=== PATIENT | male | born 1955 | race Caucasian/White ===

== ENCOUNTER 2016-08-13 05:48 | Outpatient (CLI) | payer OTHER ==
[~2016-08-13] VITALS: Ht 185.4 cm; Wt 99.8 kg
== END 2016-08-13 15:09 ==
LOC: PREOP 05:48
PROVIDERS: ATTEND Surgery
DX: Z01.818 Encounter for other preprocedural examination (principal); Z11.2 Encounter for screening for other bacterial diseases

== ENCOUNTER 2016-08-14 11:07 | Day surgery (SDC) | payer OTHER ==
[~2016-08-14] VITALS: Ht 185.4 cm; Wt 99.8 kg
[2016-08-14] MEDS ORDERED: NS IV 1000 ML 1,000 ML IV STA (11:34)
[2016-08-14] MEDS ORDERED: NS IV 1000 ML 1,000 ML ONE (11:41)
[2016-08-14 11:58] VITALS: BP 136/69
--- NOTE | 2016-08-14 12:29 | Progress Note-Pre Operative ---
Pre-Operative Progress Note H&P Reviewed The H&P was reviewed, patient examined and no changes noted. Date H&P Reviewed: August 14, 2016 Time H&P Reviewed: 12:28 Pre-Operative Diagnosis: occult positive stool, history of ileus ANGELICA BRITTON DO August 14, 2016 12:29 pm
[2016-08-14] MEDS ORDERED: PROPOFOL INJECTION 50 ML IV ONE (13:08)
[2016-08-14] MEDS ORDERED: MIDAZOLAM 2 MG/2 ML (VERSED) VIAL ONE (13:15)
[2016-08-14 14:00] VITALS: BP 111/76
[2016-08-14 14:45] VITALS: BP 114/78
--- NOTE | 2016-08-14 15:20 | Discharge Inst-Simple/Standard ---
Discharge Inst-Standard Patient Instructions/Follow Up Plan of Care/Instructions/FU: Follow up Wednesday in the afternoon. Expect some bleeding. Stay on clear liquid diet. Activity as Tolerated: Yes Discharge Diet: Liquid Diet (clear) ANGELICA BRITTON DO August 14, 2016 3:20 pm
--- NOTE | 2016-08-14 15:26 | Progress Note-Post Operative ---
Post-Operative Progess Note Surgeon (s)/Game Attendant (s) Surgeon ANGELICA BRITTON DO Game Attendant: na Pre-Operative Diagnosis occult positive stool, history of ileus Post-Operative Diagnosis rectal mass Procedure & Operative Findings Date of Procedure 08/14/16 Procedure Performed/Findings attempted colonoscopy, proctoscopy with biopsies of rectal mass Anesthesia Type per [facility] Estimated Blood Loss Estimated blood loss (mL): scant Specimens/Packing Specimens Removed rectal mass ANGELICA BRITTON DO August 14, 2016 3:26 pm
[2016-08-14 15:45] VITALS: BP 142/80
[2016-08-14 16:09] VITALS: BP 111/76
--- NOTE | 2016-08-15 16:28 | OPERATIVE REPORT ---
DATE OF SERVICE: 08/14/2016 PREOPERATIVE DIAGNOSES: Hemoccult positive stool and history of ileus. POSTOPERATIVE DIAGNOSIS: Rectal mass. PROCEDURES: Attempted colonoscopy, proctoscopy with multiple biopsies of rectal mass. SURGEON: Angelica Sheikh DO ANESTHESIA: Per [facility]. ESTIMATED BLOOD LOSS: Scant. INDICATIONS: The patient is a 60-year-old male who has never had a colonoscopy. He was recently in the hospital in [place] for ileus. During that visit, he had Hemoccult positive stools. He was referred to [place] for colonoscopy. He understands risks and benefits of procedure and wished to proceed with procedure. Consent was signed in the chart. PROCEDURE: The patient was taken to the endoscopy suite, placed in left lateral recumbent position. Timeout was performed. Digital rectal exam was performed. The anus had no palpable polyps, mass or ulcerations. In the rectum, there is a palpable mass just barely able to be palpated. The scope was then inserted into the rectum. A circumferential mass was visualized with almost 95% occlusion of the lumen. The scope was unable to be passed through the mass. The mass was approximately 7 or 8 cm from the anal verge. The scope was then retracted back. A gastroscope was obtained to see if this would be able to be passed. The scope was inserted in the rectum, but this was unable to be passed as well. The mass appeared to be extending proximally, but difficult to assess due to the overall visibility since the scope could not be passed. The scope was then slowly retracted back, but multiple biopsies were obtained of the mass. The scope was then slowly retracted back, noting no other pathology. RECOMMENDATIONS: The patient will follow up in the office on Wednesday. He is going to continue on clear liquids. We will discuss surgical options and then proceed. Job ID: [id number] DocumentID: [id number] Dictated Date: 08/15/2016 14:18:51 Information Services Consultant Date: 08/15/2016 16:27:42 Dictated By: ANGELICA SHEIKH DO [facility] NETWORKMaricel
== END 2016-08-14 15:30 | disposition home or self-care (01) ==
LOC: ENDO 11:07
PROVIDERS: ATTEND Surgery
DX: K62.9 Disease of anus and rectum, unspecified (principal); E07.9 Disorder of thyroid, unspecified; Z79.899 Other long term (current) drug therapy

== ENCOUNTER → 2016-08-18 | Outpatient (CLI) | payer OTHER ==
[2016-08-18 11:06] LABS: BASOPHILS % (AUTO) 0 % (0-10); EOSINOPHILS # (AUTO) 0.3 10^3/uL (0.0-0.3); EOSINOPHILS % (AUTO) 4 % (0-10); LYMPHOCYTES # (AUTO) 1.8 X 10^3 (1.0-4.0); LYMPHOCYTES % (AUTO) 26 % (12-44); MEAN CORPUSCULAR HEMOGLOBIN 26 PG (25-34); MEAN CORPUSCULAR HGB CONC 32 G/DL (32-36); MEAN CORPUSCULAR VOLUME 82 FL (80-99); MEAN PLATELET VOLUME 11.7 FL (7.4-10.4); MONOCYTES # (AUTO) 0.6 X 10^3 (0.0-1.0); MONOCYTES % (AUTO) 9 % (0-12); NEUTROPHILS # (AUTO) 4.1 X 10^3 (1.8-7.8); NEUTROPHILS % (AUTO) 60 % (42-75); PLATELET COUNT 275 10^3/uL (130-400); RED BLOOD COUNT 4.74 10^6/uL (4.35-5.85); RED CELL DISTRIBUTION WIDTH 14.4 % (10.0-14.5); WHITE BLOOD COUNT 6.8 10^3/uL (4.3-11.0)
[2016-08-18 11:28] LABS: ALANINE AMINOTRANSFERASE 19 U/L (0-55); ALBUMIN 3.8 G/DL (3.2-4.5); ANION GAP 11 MMOL/L (5-14); ASPARTATE AMINO TRANSFERASE 20 U/L (5-34); BILIRUBIN,TOTAL 0.3 MG/DL (0.1-1.0); BLOOD UREA NITROGEN 9 MG/DL (7-18); BUN/CREATININE RATIO 8; CALCIUM 9.1 MG/DL (8.5-10.1); CARBON DIOXIDE 21 MMOL/L (21-32); CHLORIDE 107 MMOL/L (98-107); CREATININE SERUM 1.07 MG/DL (0.60-1.30); GFR ESTIMATED > 60; GLUCOSE 90 MG/DL (70-105); POTASSIUM 4.7 MMOL/L (3.6-5.0); SODIUM 139 MMOL/L (135-145); TOTAL PROTEIN 7.3 G/DL (6.4-8.2)
--- NOTE | 2016-08-18 15:38 | Diagnostic Imaging Report ---
EXAMINATION: PET/CT. TECHNIQUE: The serum glucose level at the time of the study is: 97 mg/dL. 13.6 mCi of FDG was administered intravenously followed by obtaining PET images with corresponding noncontrast CT scan images. The CT scan was performed for anatomic correlation and attenuation correction and was not performed according to the diagnostic protocol of the areas covered. The scan was performed from the head to mid thighs. INDICATION: Initial staging of rectal cancer. FINDINGS: There is symmetric FDG uptake in the brain. No hypermetabolic mass is seen in the neck. There is nonspecific mild to moderate uptake in the hard and soft palate and around the oropharynx with no convincing associated soft tissue mass or thickening seen on the correlating CT scan, probably related to an inflammatory process. No suspicious hypermetabolic mass is seen in the chest. No hypermetabolic mass is seen in the liver or periaortic lymph nodes. There is intense hypermetabolism seen associated with soft tissue mass thickening extending from the distal sigmoid to the mid rectum with an estimated length of involvement of 10 cm. No hypermetabolic pelvic or perirectal lymph nodes are seen. The osseous structures demonstrate no hypermetabolic lesions. IMPRESSION: Intensely hypermetabolic mass extending from the distal sigmoid to the mid rectum with no PET evidence of lymph node spread or distant metastasis. Dictated by: Dictated on workstation # [id number]
== END ==
LOC: RAD 10:43
PROVIDERS: ATTEND Surgery
DX: C18.9 Malignant neoplasm of colon, unspecified (principal)
CPT/HCPCS: 36415; 80053; 82378; 85025

== ENCOUNTER 2016-08-21 14:11 | Day surgery (SDC) | payer OTHER ==
[~2016-08-21] VITALS: Ht 185.4 cm; Wt 99.8 kg
[2016-08-21] MEDS ORDERED: NS IV 1000 ML 1,000 ML IV STA (14:14)
[2016-08-21] MEDS ORDERED: FLUMAZENIL (ROMAZICON) 0.1 MG/ML 5 ML VIAL INJ PRN (14:15)
[2016-08-21] MEDS ORDERED: NALOXONE 0.4 MG/ML 1 ML (NARCAN) VIAL IVP PRN (14:15)
[2016-08-21 15:00] VITALS: BP 125/76
[2016-08-21] MEDS ORDERED: proPOfol 200 MG/20 ML (DIPRIVAN) VIAL IV ONE (15:00)
[2016-08-21 15:35] VITALS: BP 135/80
--- NOTE | 2016-08-21 15:44 | Progress Note-Post Operative ---
Post-Operative Progess Note Surgeon (s)/National Sales Consultant (s) Surgeon ANGELICA BRITTON DO National Sales Consultant: na Pre-Operative Diagnosis rectal mass Post-Operative Diagnosis same Procedure & Operative Findings Date of Procedure 08/21/16 Procedure Performed/Findings proctoscopy with biopsies Anesthesia Type per metallurgical specialist Estimated Blood Loss Estimated blood loss (mL): scant Specimens/Packing Specimens Removed rectal mass ANGELICA BRITTON DO August 21, 2016 3:44 pm
[2016-08-21 15:55] VITALS: BP 124/84
[2016-08-21 16:00] VITALS: BP 124/84
--- NOTE | 2016-08-21 20:32 | OPERATIVE REPORT ---
DATE OF SERVICE: 08/21/2016 PREOPERATIVE DIAGNOSIS: Rectal mass. POSTOPERATIVE DIAGNOSIS: Rectal mass. PROCEDURE: Proctoscopy with biopsies. SURGEON: Angelica Sheikh DO ANESTHESIA: Per [employer]. ESTIMATED BLOOD LOSS: Scant. SPECIMENS: Biopsies of rectal mass. INDICATIONS: The patient is a 60-year-old male with rectal mass. He has already had biopsies which demonstrated high-grade dysplasia suspicious for adenocarcinoma. He was recommended to have repeat biopsies performed. He understood the risks and benefits and wished to proceed with procedure. Consent was signed and on the chart. DESCRIPTION OF PROCEDURE: The patient was taken to the endoscopy suite, placed in left lateral recumbent position. Timeout was performed. Gastroscope was inserted through the anus into the rectum, visualizing the large rectal mass. This appeared unchanged from previous endoscopy. Multiple biopsies were obtained. No other pathology was noted. The scope was then slowly retracted until completely removed. The patient tolerated the procedure well without any complications. He was taken to the recovery room in stable condition. RECOMMENDATIONS: The patient to follow up on biopsies in the next 1 to 2 weeks. If he has any problems prior to that, he should be re-evaluated at that time. Job ID: [id number] DocumentID: [id number] Dictated Date: 08/21/2016 15:47:50 Auto Body Repair Teacher Date: 08/21/2016 20:31:45 Dictated By: ANGELICA SHEIKH DO
== END 2016-08-21 16:00 | disposition home or self-care (01) ==
LOC: SDC 14:11
PROVIDERS: ATTEND Surgery
DX: C20 Malignant neoplasm of rectum (principal)

== ENCOUNTER → 2016-08-21 | Outpatient (CLI) | payer OTHER ==
[~2016-08-21] MED LIST: GADOBUTROL 10 MMOL/10 ML (GADAVIST) VIAL IV ONE
--- NOTE | 2016-08-21 13:47 | Diagnostic Imaging Report ---
PROCEDURE: MRI pelvis with and without contrast. TECHNIQUE: Multiplanar, multisequence MRI of the pelvis was performed with and without contrast. INDICATION: Rectal cancer. CONTRAST: 9 mL of Gadavist is administered intravenously. FINDINGS: There is a rectal mass with associated stricture seen involving the upper rectum and extending to the distal sigmoid colon. The mass extends over a length of approximately 6 cm. The mass has irregular outer margin particularly at its inferior aspect suggestive of involvement of the serosa and extension into the fat around the serosa. The mass possibly involves the anterior peritoneal reflection over the upper rectum and distal sigmoid. There is an indeterminate perirectal lymph node measuring 8 mm on the left side near the upper rectum level. More distally in the rectum, there is normal distention. There is debris, secretions, and fecal material within the lumen which would interfere with the interpretation. This involves the lower rectum up to the level of the anal canal. Mild enhancement in the mucosa and apparent irregularity is seen in the lower rectum. No definite extension of this process however into the anal canal. This area of mucosal irregularity and enhancement is 4 cm above the anal verge. The levator ani muscles appear normal. The patient was brought back for additional scanning in prone position. The mild mucosal thickening and irregularity is confirmed within the lower rectum. This lesion however could be related to inflammation although early mucosal tumor cannot be excluded. The adjacent organs including the urinary bladder and the prostate appear grossly unremarkable. No internal or external iliac enlarged lymph nodes are noted. IMPRESSION: 1. There is a suspicious mass in the upper rectum and distal sigmoid colon associated with the luminal stricture and irregular serosal surface compatible with colorectal cancer with suggestion of extension beyond the serosa into the adjacent fat. An adjacent 8 mm lymph node in the left perirectal fat at the level of the upper rectum seen. No discrete iliac lymphadenopathy is noted. 2. There is a separate area of mucosal irregularity and enhancement seen in the lower rectum, abutting the upper aspect of the anal canal. It is about 4 cm above the anal verge. This lesion is indeterminate and could be related to mucosal inflammation versus early mucosal neoplasm. Correlate with endoscopic findings. The findings were discussed with Dr. Sheikh at time of dictation. Dictated by: Dictated on workstation # [id number]
--- NOTE | 2016-08-21 15:33 | Discharge Inst-Simple/Standard ---
Discharge Inst-Standard Patient Instructions/Follow Up Plan of Care/Instructions/FU: Follow up with Dr. Sheikh in 1 to 2 weeks. Activity as Tolerated: Yes Discharge Diet: No Restrictions VERONICA HOLLEY APRN August 21, 2016 15:33
== END ==
LOC: RAD 06:40
PROVIDERS: ATTEND Surgery
DX: C20 Malignant neoplasm of rectum (principal)
CPT/HCPCS: 72197

== ENCOUNTER 2016-10-12 15:22 | Outpatient (RCR) | payer OTHER ==
[2016-09-16 10:06] LABS: BASOPHILS % (AUTO) 0 % (0-10); EOSINOPHILS # (AUTO) 0.1 10^3/uL (0.0-0.3); EOSINOPHILS % (AUTO) 3 % (0-10); LYMPHOCYTES # (AUTO) 0.7 X 10^3 (1.0-4.0); LYMPHOCYTES % (AUTO) 22 % (12-44); MEAN CORPUSCULAR HEMOGLOBIN 27 PG (25-34); MEAN CORPUSCULAR HGB CONC 32 G/DL (32-36); MEAN CORPUSCULAR VOLUME 84 FL (80-99); MEAN PLATELET VOLUME 10.9 FL (7.4-10.4); MONOCYTES # (AUTO) 0.4 X 10^3 (0.0-1.0); MONOCYTES % (AUTO) 11 % (0-12); NEUTROPHILS # (AUTO) 2.1 X 10^3 (1.8-7.8); NEUTROPHILS % (AUTO) 63 % (42-75); PLATELET COUNT 211 10^3/uL (130-400); WHITE BLOOD COUNT 3.2 10^3/uL (4.3-11.0)
[2016-09-16 10:26] LABS: ALANINE AMINOTRANSFERASE 11 U/L (0-55); ALBUMIN 3.7 GM/DL (3.2-4.5); ANION GAP 7 MMOL/L (5-14); ASPARTATE AMINO TRANSFERASE 17 U/L (5-34); BILIRUBIN,TOTAL 0.3 MG/DL (0.1-1.0); BLOOD UREA NITROGEN 9 MG/DL (7-18); BUN/CREATININE RATIO 10 (0-20); CALCIUM 8.1 MG/DL (8.5-10.1); CARBON DIOXIDE 21 MMOL/L (21-32); CHLORIDE 110 MMOL/L (98-107); GFR ESTIMATED > 60; GLUCOSE 102 MG/DL (70-105); HEMOLYSIS 11 (-100-29); ICTERUS 0.5 (-100-1.9); LIPEMIA 22 (-100-49); SODIUM 138 MMOL/L (135-145); TOTAL PROTEIN 6.6 GM/DL (6.4-8.2)
[2016-10-01 08:57] LABS: BASOPHILS % (AUTO) 0 % (0-10); EOSINOPHILS # (AUTO) 0.1 10^3/uL (0.0-0.3); EOSINOPHILS % (AUTO) 4 % (0-10); LYMPHOCYTES # (AUTO) 0.4 X 10^3 (1.0-4.0); LYMPHOCYTES % (AUTO) 14 % (12-44); MEAN CORPUSCULAR HEMOGLOBIN 28 PG (25-34); MEAN CORPUSCULAR HGB CONC 32 G/DL (32-36); MEAN CORPUSCULAR VOLUME 87 FL (80-99); MEAN PLATELET VOLUME 9.8 FL (7.4-10.4); MONOCYTES # (AUTO) 0.5 X 10^3 (0.0-1.0); MONOCYTES % (AUTO) 15 % (0-12); NEUTROPHILS # (AUTO) 2.1 X 10^3 (1.8-7.8); NEUTROPHILS % (AUTO) 68 % (42-75); PLATELET COUNT 187 10^3/uL (130-400); RED BLOOD COUNT 3.68 10^6/uL (4.35-5.85); RED CELL DISTRIBUTION WIDTH 20.5 % (10.0-14.5); WHITE BLOOD COUNT 3.2 10^3/uL (4.3-11.0)
[2016-10-01 09:29] LABS: ALANINE AMINOTRANSFERASE 13 U/L (0-55); ALBUMIN 3.6 GM/DL (3.2-4.5); ANION GAP 7 MMOL/L (5-14); ASPARTATE AMINO TRANSFERASE 16 U/L (5-34); BILIRUBIN,TOTAL 0.4 MG/DL (0.1-1.0); BLOOD UREA NITROGEN 10 MG/DL (7-18); BUN/CREATININE RATIO 10; CALCIUM 8.7 MG/DL (8.5-10.1); CARBON DIOXIDE 24 MMOL/L (21-32); CHLORIDE 110 MMOL/L (98-107); CREATININE SERUM 0.99 MG/DL (0.60-1.30); GFR ESTIMATED > 60; GLUCOSE 100 MG/DL (70-105); POTASSIUM 4.3 MMOL/L (3.6-5.0); SODIUM 141 MMOL/L (135-145); TOTAL PROTEIN 6.6 GM/DL (6.4-8.2)
[2016-10-01 09:52] LABS: THYROID STIMULATING HORMONE 2.39 UIU/ML (0.35-4.94)
[2016-11-20] MEDS ORDERED: HYDR-3812 PO (09:01)
== END 2016-11-19 | disposition home or self-care (01) ==
LOC: ONC 15:22
PROVIDERS: ATTEND Internal Medicine Hematology & Oncology
DX: Z51.0 Encounter for antineoplastic radiation therapy (principal); C20 Malignant neoplasm of rectum; E07.9 Disorder of thyroid, unspecified; Z79.899 Other long term (current) drug therapy
CPT/HCPCS: 36415; 77301; 77336; 77338; 77386; 77470; 80053; 84443; 85025; 99214

== ENCOUNTER 2016-11-03 05:42 | Outpatient (CLI) | payer OTHER ==
[~2016-11-03] VITALS: Ht 185.4 cm; Wt 99.8 kg
== END 2016-11-03 13:44 ==
LOC: PREOP 05:42
PROVIDERS: ATTEND Surgery
DX: Z53.9 Procedure and treatment not carried out, unspecified reason (principal)

== ENCOUNTER 2016-11-05 07:22 | Day surgery (SDC) | payer OTHER ==
[~2016-11-05] VITALS: Ht 185.4 cm; Wt 99.8 kg
[2016-11-05 08:15] VITALS: BP 123/83
[2016-11-05] MEDS ORDERED: LACTATED RINGERS 1,000 ML IV NR (08:15)
[2016-11-05] MEDS ORDERED: LACTATED RINGERS 1,000 ML IV ONE (08:33)
[2016-11-05] MEDS ORDERED: MIDAZOLAM 2 MG/2 ML (VERSED) VIAL ONE (08:47)
[2016-11-05] MEDS ORDERED: proPOfol 200 MG/20 ML (DIPRIVAN) VIAL IV ONE (08:47)
--- NOTE | 2016-11-05 09:09 | Progress Note-Pre Operative ---
Pre-Operative Progress Note H&P Reviewed The H&P was reviewed, patient examined and no changes noted. Date Seen by Provider: Nov 05, 2016 Time Seen by Provider: 09:09 Date H&P Reviewed: Nov 05, 2016 Time H&P Reviewed: 09:09 Pre-Operative Diagnosis: adenocarcinoma of rectum ANGELICA BRITTON DO Nov 05, 2016 9:09 am
[2016-11-05 09:35] VITALS: BP 132/85
--- NOTE | 2016-11-05 09:41 | Discharge Inst-Simple/Standard ---
Discharge Inst-Standard Patient Instructions/Follow Up Plan of Care/Instructions/FU: follow up with Dr. Sheikh on wednesday or wednesday next week. Activity as Tolerated: Yes Discharge Diet: No Restrictions VERONICA HOLLEY APRN Nov 05, 2016 09:41
[2016-11-05 10:00] VITALS: BP 132/85
--- NOTE | 2016-11-05 10:05 | Progress Note-Post Operative ---
Post-Operative Progess Note Surgeon (s)/Technical Planner (s) Surgeon ANGELICA BRITTON DO Technical Planner: na Pre-Operative Diagnosis adenocarcinoma of rectum Post-Operative Diagnosis same Procedure & Operative Findings Date of Procedure 11/05/16 Procedure Performed/Findings attempted colonoscopy, proctoscopy with ngoc inking Anesthesia Type general Estimated Blood Loss Estimated blood loss (mL): none Specimens/Packing Specimens Removed none ANGELICA BRITTON DO Nov 05, 2016 10:05 am
--- NOTE | 2016-11-06 09:14 | OPERATIVE REPORT ---
DATE OF SERVICE: PREOPERATIVE DIAGNOSIS: Adenocarcinoma of the rectum. POSTOPERATIVE DIAGNOSIS: Adenocarcinoma of the rectum. PROCEDURE: Attempted colonoscopy, proctoscopy with Leonora inking. SURGEON: Angelica Sheikh DO ANESTHESIA: Per [employer]. ESTIMATED BLOOD LOSS: None. COMPLICATIONS: None. INDICATIONS: The patient is a 61-year-old male with adenocarcinoma of the rectum. He has undergone chemoradiation. He was recommended to have a repeat colonoscopy for reevaluation and to see if we could see the remainder of the colon since he has been unable to have a complete colonoscopy. He understands risks and benefits and wished to proceed with procedure. Consent was signed and in the chart. DESCRIPTION OF PROCEDURE: The patient was taken to the endoscopy suite, placed in left lateral recumbent position. Timeout was performed. Digital rectal exam was performed. Palpable mass at the very tip of the finger within the rectum. No other polyps, mass or ulcerations. The scope was inserted in the rectum. At approximately cm, the rectal mass was able to be visualized. There is some slight improvement after chemoradiation, but there is still significant stenosis. The scope was unable to be passed through this stricture. At this point, I decided just to go ahead and proceed with Leonora inking, 1 mL of Leonora ink was then placed in three different locations just distal to the mass. No other pathology was noted. Scope was then slowly retracted until completely removed. The patient tolerated procedure well without any complications. We will have him follow up next week to discuss further surgical options and then plan on surgical intervention. Job ID: [id number] DocumentID: [id number] Dictated Date: 11/05/2016 10:08:50 Audio Visual Director Date: 11/05/2016 10:27:24 Dictated By: ANGELICA SHEIKH DO
== END 2016-11-05 10:05 | disposition home or self-care (01) ==
LOC: ENDO 07:22
PROVIDERS: ATTEND Surgery
DX: C20 Malignant neoplasm of rectum (principal); K62.4 Stenosis of anus and rectum; Z92.21 Personal history of antineoplastic chemotherapy; Z92.3 Personal history of irradiation

== ENCOUNTER 2016-11-12 13:18 | Outpatient (CLI) | payer OTHER ==
[~2016-11-12] VITALS: Ht 185.4 cm; Wt 106.6 kg
[2016-11-12 13:26] VITALS: BP 130/77
[2016-11-12 14:02] LABS: BASOPHILS % (AUTO) 0 % (0-10); EOSINOPHILS # (AUTO) 0.2 10^3/uL (0.0-0.3); EOSINOPHILS % (AUTO) 3 % (0-10); LYMPHOCYTES # (AUTO) 0.6 X 10^3 (1.0-4.0); LYMPHOCYTES % (AUTO) 13 % (12-44); MEAN CORPUSCULAR HEMOGLOBIN 30 PG (25-34); MEAN CORPUSCULAR HGB CONC 33 G/DL (32-36); MEAN CORPUSCULAR VOLUME 90 FL (80-99); MONOCYTES # (AUTO) 0.4 X 10^3 (0.0-1.0); MONOCYTES % (AUTO) 9 % (0-12); NEUTROPHILS # (AUTO) 3.5 X 10^3 (1.8-7.8); NEUTROPHILS % (AUTO) 75 % (42-75); PLATELET COUNT 214 10^3/uL (130-400); RED BLOOD COUNT 3.71 10^6/uL (4.35-5.85); RED CELL DISTRIBUTION WIDTH 16.8 % (10.0-14.5); WHITE BLOOD COUNT 4.6 10^3/uL (4.3-11.0)
== END 2016-11-12 13:45 | disposition home or self-care (01) ==
LOC: PREOP 13:18
PROVIDERS: ATTEND Surgery
DX: Z01.818 Encounter for other preprocedural examination (principal); C18.9 Malignant neoplasm of colon, unspecified
CPT/HCPCS: 36415; 85025; 87081

== ENCOUNTER 2016-11-16 07:22 | Inpatient (IN) | payer OTHER ==
[~2016-11-16] VITALS: Ht 185.4 cm; Wt 106.6 kg
[2016-11-16] VITALS (9 sets, daily range): BP systolic 106–127; BP diastolic 65–88
--- OUTSIDE RECORDS SUMMARY | 2016-11-16 07:27 | XMS REPORT | Continuity of Care Document ---
Author Author [facility] Organization [facility] Address Unknown Phone Unavailable Allergies Active Description Code Type Severity Reaction Onset Reported/Identified Relationship to Patient Clinical Status Yes No Known Medication Allergies Drug N/A N/A Medications Problems Procedures Results Encounters ACCT No. Visit Date/Time Discharge Status Pt. Type Provider Facility Loc./Unit Complaint [id number] 03/31/2016 10:48:00 2016 14:02:00 DIS Emergency JAVIER MARTINEZ [facility] ED l ear laceration [id number] 04/02/2016 11:50:00 ACT Unknown
[2016-11-16] MEDS ORDERED: fentaNYL INJECTION 250 MCG/5 ML AMP ONE ×2 (08:29→11:02)
[2016-11-16] MEDS ORDERED: ROCURONIUM 50 MG/5 ML (ZEMURON) VIAL IV ONE ×2 (08:29→10:26)
[2016-11-16] MEDS ORDERED: LIDOCAINE PF 2% 5 ML (XYLOCAINE) VIAL ONE (08:29)
[2016-11-16] MEDS ORDERED: LACTATED RINGERS 1,000 ML IV ONE ×3 (08:29→13:10)
[2016-11-16] MEDS ORDERED: ONDANSETRON 4 MG/2 ML (SDV) Z0FRAN ONE ×2 (08:29→11:42)
[2016-11-16] MEDS ORDERED: proPOfol 200 MG/20 ML (DIPRIVAN) VIAL IV ONE (08:29)
[2016-11-16] MEDS ORDERED: SEVOFLURANE (ULTANE) 15 ML INHAL SOLN ONE ×17 (08:29→13:20)
[2016-11-16] MEDS ORDERED: MIDAZOLAM 2 MG/2 ML (VERSED) VIAL ONE ×2 (08:30→08:36)
[2016-11-16] MEDS: LACTATED RINGERS 1,000 ML IV PRN ×3 (08:40→11:29)
--- NOTE | 2016-11-16 08:40 | Progress Note-Pre Operative ---
Pre-Operative Progress Note H&P Reviewed The H&P was reviewed, patient examined and no changes noted. Date Seen by Provider: Nov 16, 2016 Time Seen by Provider: 08:40 Date H&P Reviewed: Nov 16, 2016 Time H&P Reviewed: 08:40 Pre-Operative Diagnosis: adenocarcinoma rectum ANGELICA BRITTON DO Nov 16, 2016 08:40
[2016-11-16] MEDS ORDERED: ceFAZolin 2 GM/NS 50 ML IV ONE (08:45)
[2016-11-16] MEDS ORDERED: metroNIDAZOLE 500 MG/100 ML IVPB (PRE-MIX) IV ONE (08:45)
[2016-11-16] MEDS ORDERED: BUPIVACAINE 0.5% 30 ML (SENSORCAINE) VIAL ONE (09:11)
[2016-11-16] MEDS ORDERED: LIDOCAINE 1% INJ 20 ML (XYLOCAINE) VIAL ONE (09:12)
[2016-11-16] MEDS ORDERED: PHENYLEPHRINE INJ 10 MG/ML (NEO-SYNEPHRINE 1%) ONE (10:01)
[2016-11-16] MEDS ORDERED: MIDAZOLAM 2 MG/2 ML (VERSED) VIAL IVP ONE (10:15)
[2016-11-16] MEDS ORDERED: SUFENTA 0.6MCG/ML BUPIVA 0.125 100 ML ONE (11:30)
[2016-11-16] MEDS ORDERED: HYDROmorphone (DILAUDID) 2 MG/ML VIAL ONE (11:42)
[2016-11-16] MEDS ORDERED: morphine INJ 10 MG/ML 1ML (SYR OR VIAL) ONE (11:42)
[2016-11-16] MEDS ORDERED: ceFAZolin 1,000 MG (ANCEF) VIAL ONE (12:56)
[2016-11-16] MEDS ORDERED: GLYCOPYRROLATE 0.2 MG/ML (ROBINUL) 2 ML VIAL ONE (13:10)
[2016-11-16] MEDS ORDERED: NEOSTIGMINE (BLOXIVERZ ) 1 MG/1ML 10 ML VIAL ONE (13:10)
[2016-11-16] MEDS ORDERED: morphine INJ 10 MG/ML 1ML (SYR OR VIAL) IVP PRN (13:45)
[2016-11-16] MEDS ORDERED: NALOXONE 0.4 MG/ML 1 ML (NARCAN) VIAL IV PRN ×2 (13:45)
[2016-11-16] MEDS ORDERED: diphenhydrAMINE 50 MG/ML INJ (BENADRYL) IV PRN (13:45)
[2016-11-16] MEDS ORDERED: ONDANSETRON 4 MG/2 ML (SDV) Z0FRAN IV PRN (13:45)
[2016-11-16] MEDS ORDERED: METOCLOPRAMIDE INJ 10 MG/2 ML (REGLAN) IV PRN (13:45)
--- NOTE | 2016-11-16 13:48 | Progress Note-Post Operative ---
Post-Operative Progess Note Surgeon (s)/Rotoformer Backtender (s) Surgeon ANGELICA BRITTON DO Rotoformer Backtender: Dr. Sofia Pre-Operative Diagnosis adenocarcinoma rectum Post-Operative Diagnosis same Procedure & Operative Findings Date of Procedure 11/16/16 Procedure Performed/Findings lap to open low anterior resection and diverting loop ileostomy Anesthesia Type general Estimated Blood Loss Estimated blood loss (mL): 100mL Specimens/Packing Specimens Removed rectal mass ANGELICA BRITTON DO Nov 16, 2016 13:48
[2016-11-16] MEDS ORDERED: metroNIDAZOLE 500MG/100ML IVPB 100 ML IV SCH (14:00)
[2016-11-16] MEDS ORDERED: ceFAZolin 2 GM/50 ML NS 50 ML IV SCH (14:00)
[2016-11-16] MEDS ORDERED: ONDANSETRON 4 MG/2 ML (SDV) Z0FRAN IVP PRN (14:00)
[2016-11-16] MEDS: NS IV 1000 ML 1,000 ML IV SCH (16:52)
[2016-11-16] MEDS: FAMOTIDINE 20MG/2ML IV (PEPCID) IVP SCH (16:57)
[2016-11-16] MEDS: metroNIDAZOLE 500MG/100ML IVPB 100 ML IV SCH (17:24)
[2016-11-16] MEDS ORDERED: CATHETER FLUSH 10 ML SYR IV PRN (17:30)
[2016-11-16] MEDS: ceFAZolin 2 GM/50 ML NS 50 ML IV SCH (20:39)
[2016-11-16] MEDS: EPIDURAL (SUFENTA 0.6MCG/ML BUPIVA 0.125%) 100 ML BAG EPI SCH (23:30)
[2016-11-17] VITALS (18 sets, daily range): BP systolic 96–135; BP diastolic 55–83
[2016-11-17] MEDS: metroNIDAZOLE 500MG/100ML IVPB 100 ML IV SCH (00:31)
[2016-11-17] MEDS: NS IV 1000 ML 1,000 ML IV SCH ×4 (03:23→22:03)
[2016-11-17 04:43] LABS: MEAN PLATELET VOLUME 10.4 FL (7.4-10.4); RED BLOOD COUNT 3.79 10^6/uL (4.35-5.85); RED CELL DISTRIBUTION WIDTH 16.7 % (10.0-14.5); WHITE BLOOD COUNT 8.2 10^3/uL (4.3-11.0)
[2016-11-17 05:01] LABS: ALANINE AMINOTRANSFERASE 17 U/L (0-55); ALBUMIN 3.2 GM/DL (3.2-4.5); ANION GAP 12 MMOL/L (5-14); ASPARTATE AMINO TRANSFERASE 18 U/L (5-34); BILIRUBIN,TOTAL 0.6 MG/DL (0.1-1.0); BLOOD UREA NITROGEN 14 MG/DL (7-18); BUN/CREATININE RATIO 12; CALCIUM 7.8 MG/DL (8.5-10.1); CARBON DIOXIDE 19 MMOL/L (21-32); CHLORIDE 106 MMOL/L (98-107); CREATININE SERUM 1.15 MG/DL (0.60-1.30); GFR ESTIMATED > 60; GLUCOSE 117 MG/DL (70-105); MAGNESIUM 1.5 MG/DL (1.8-2.4); PHOSPHORUS 4.6 MG/DL (2.3-4.7); POTASSIUM 4.5 MMOL/L (3.6-5.0); SODIUM 137 MMOL/L (135-145); TOTAL PROTEIN 6.1 GM/DL (6.4-8.2)
[2016-11-17] MEDS: ceFAZolin 2 GM/50 ML NS 50 ML IV SCH (06:32)
[2016-11-17] MEDS: FAMOTIDINE 20MG/2ML IV (PEPCID) IVP SCH (08:59)
[2016-11-17] MEDS: morphine INJ 4 MG/ML 1 ML (VIAL/SYRINGE) IVP PRN ×3 (08:59→20:40)
[2016-11-17] MEDS: EPIDURAL (SUFENTA 0.6MCG/ML BUPIVA 0.125%) 100 ML BAG EPI SCH ×2 (09:00→19:30)
--- NOTE | 2016-11-17 09:51 | Consultation-Hospitalist ---
HPI History of Present Illness: HPI/Chief Complaint CC: Medical management following uncomplicated lap to open low anterior resection and diverting loop ileostomy per Dr Sheikh HPI: This is a 61-year-old white male clinic patient at [facility] of Dr. Galeano who presents to the ICU following an uncomplicated resection of colon mass confirmed cancer. He reports that he hasn't seen a doctor for a long time and denies any other significant medical problems other than the colon mass. 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 I review laboratory and vital signs. He currently has an epidural and overall doing well per RN. Source: patient Exam Limitations: no limitations Date Seen 11/17/16 Attending Physician Adryan Sheikh DO PCP Karlo Galeano MD Referring Physician Date of Admission Nov 16, 2016 at 07:22 Home Medications & Allergies Home Medications Reviewed patient Home Medication Reconciliation Form Allergies Allergies Coded Allergies No Known Drug Allergies (Verified08/14/16) Past Sasphip-Wynjzt-Klunit Hx Patient Social History Employed/Student: employed Alcohol Use: Denies Use Recreational Drug Use: No Smoking Status: Never a Smoker Physical Abuse Screen: No Sexual Abuse: No Recent Foreign Travel: No Contact w/other who traveled: No Recent Hopitalizations: No Recent Infectious Disease Expo: No Immunizations Up To Date Tetanus Booster (TDap): Unknown Seasonal Allergies Seasonal Allergies: No Surgeries Yes (KNEE SCOPE X3) Orthopedic Respiratory No Currently Using CPAP: No Currently Using BIPAP: No Cardiovascular No Neurological No Reproductive System Hx Reproductive Disorders: No Sexually Transmitted Disease: No HIV/AIDS: No Genitourinary No Gastrointestinal Yes (colon ca) Musculoskeletal No Endocrine History of Endocrine Disorders: No HEENT Loss of Vision: Denies Hearing Impairment: Denies Cancer Yes Rectal, Colon Type of Treatment: Chemotherapy, Radiation Psychosocial History of Psychiatric Problem: No Integumentary History of Skin or Integumenta: No Blood Transfusions History of Blood Disorders: No Adverse Reaction to a Blood Tr: No (N/A) Family Medical History Family Hx: Patient reports no known family medical history. Review of Systems Constitutional: see HPI EENTM: no symptoms reported Respiratory: no symptoms reported Cardiovascular: no symptoms reported Gastrointestinal: abdominal pain (LLQ) Genitourinary: no symptoms reported Musculoskeletal: no symptoms reported Skin: no symptoms reported Psychiatric/Neurological: No Symptoms Reported All Other Systems Reviewed Negative Unless Noted: Yes Physical Exam Physical Exam Vital Signs Vital Sign - Last 12Hours 11/16/16 11/16/16 07:26 14:45 Temp 98.6 Pulse 76 Resp 20 B/P (MAP) 127/81 Pulse Ox 99 O2 Delivery Room Air O2 Flow Rate 2.00 Capillary Refill : Less Than 3 Seconds General Appearance: No Apparent Distress, WD/WN Eyes: Bilateral Eye Normal Inspection, Bilateral Eye PERRL HEENT: PERRL/EOMI, Normal ENT Inspection, Pharynx Normal Neck: Full Range of Motion, Normal Inspection, Non Tender, Supple, Carotid Bruit Respiratory: Chest Non Tender, Lungs Clear, Normal Breath Sounds, No Accessory Muscle Use, No Respiratory Distress Cardiovascular: Regular Rate, Rhythm, No Edema, No Gallop, No JVD, No Murmur, Normal Peripheral Pulses Gastrointestinal: No Organomegaly, No Pulsatile Mass, Soft, Abnormal Bowel Sounds, Tenderness Back: Normal Inspection, No CVA Tenderness, No Vertebral Tenderness Extremity: Normal Capillary Refill, Normal Inspection, Normal Range of Motion, Non Tender, No Calf Tenderness, No Pedal Edema Neurologic/Psychiatric: Alert, Oriented x3, No Motor/Sensory Deficits, Normal Mood/Affect, Other (incomplete exam due to epidural) Skin: Normal Color, Warm/Dry Lymphatic: No Adenopathy Results Results/Procedures Lab Laboratory Tests 11/17/16 04:34 Assessment/Plan Admission Diagnosis Assessment: Status post uncomplicated lap to open low anterior resection and diverting loop ileostomy POD # 1 Colon cancer adeno-type Mild post op anemia due to blood loss from surgery Assessment and Plan Plan: SCDs for DVT prophylaxis Monitor closely Epidural for pain control Incentive spirometer Monitor labs Clinical Quality Measures DVT/VTE Risk/Contraindication: Risk Factor Score Per Nursin RFS Level Per Nursing on Admit: 4+=Very High PAOLA HATCH DO Nov 17, 2016 09:51
[2016-11-17] MEDS: MAGNESIUM 1 GM/D5W 100 ML IVPB IV SCH ×2 (13:44→14:55)
--- NOTE | 2016-11-17 14:55 | Physical Therapy Evaluation ---
PT Evaluation-General Medical Diagnosis Admission Date Nov 16, 2016 at 07:22 Medical Diagnosis: colon cancer Onset Date: Nov 16, 2016 Therapy Diagnosis Therapy Diagnosis: debility/weakness Height/Weight Height (Feet): 6 Height (Inches): 1.00 Weight (Pounds): 235 Weight (Ounces): 0.0 Precautions Precautions/Isolations: Standard Precautions Weight Bear Status Weight Bearing Restriction: Weight Bearing/Tolerated Location Restriction: LE Bilateral Referral Physician: Kori Reason for Referral: Evaluation/Treatment Medical History Additional Medical History unremarkable; has not seen a physician on a regular basis Current History s/p low anterior colon resection Reviewed History: Yes Social History Home: Single Level Current Living Status: Spouse Prior/Core FIM Prior Level of Function Functional Gregg Measure 0=Not Assessed/NA 4=Minimal Assistance 1=Total Assistance 5=Supervision or Setup 2=Maximal Assistance 6=Modified Gregg 3=Moderate Assistance 7=Complete Gregg Bed Mobility: 7 Transfers (B,C,W/C) (FIM): 7 Gait: 7 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 Agrees to PT. Pain Numeric Pain Scale: 8 Location: Lower Location Body Site: Abdomen Pain Description: Acute Comment: RN issued pain meds within the past hour Objective Patient Orientation: Normal For Age Problem Solving: Good Attachments: Lovelace Catheter, IV epidural ROM/Strength ROM Lower Extremities bilateral LE WNL Strenght Lower Extremities right knee flexion/extension 5/5; hip flexion NT; ankle dorsi/plantarflexion 5/5 left knee flexion/extension 1/5; hip flexion NT; ankle dorsi/plantarflexion 3/5 (due to epidural) Integumentary/Posture Integumentary refer to nursing notes Bowel Incontinence: No Bladder Incontinence: Lovelace Cath Posture Normal Neuromuscular (Tone, Coordination, Reflexes) diminished coordination left LE due to epidural Sensory Vision: Functional Hearing: Functional Sensation Right Lower Extremit: Intact Sensation Left Lower Extremity: Impaired (epidural) Transfers Functional Gregg Measure 0=Not Assessed/NA 4=Minimal Assistance 1=Total Assistance 5=Supervision or Setup 2=Maximal Assistance 6=Modified Gregg 3=Moderate Assistance 7=Complete Gregg Transfers (B, C, W/C) (FIM): 3 Scootin Rollin Supine to/from Sit: 5 Sit to/from Stand: 3 bed t/f WC(FIM only if WC use): 3 mod assist for safety and assist to block left knee to allow patient to advance right LE with left LE weight shifting Gait Mode of Locomotion: Walk Anticipated Mode of Locomotion: Walk Gait (FIM): 1 Distance (FIM): 1=up to 49 ft (3 steps) Distance: 3 steps Gait Level of Assist: 3 Gait Persons Needed: 2 Gait Assistive Device: FWW Comments/Gait Description SBA of 1 with mod assist of 1 for safety Balance Sitting Static: Normal Sitting Dynamic: Normal Standing Static: Good Standing Dynamic: Fair Assessment/Needs 61 y.o. male, will benefit from short term skilled PT to address functional mobility to improve current LOF. Patient is currently limited due to epidural and left LE numbness/weakness. Rehab Potential: Good PT Fpc Goals Fpc Goals PT Ccnp Goals Time Frame: Nov 24, 2016 Transfers (B,C,W/C) (FIM): 7 Gait (FIM): 7 Gait distance (FIM): 3=150 ft Gait Level of Assist: 7 Gait Assistive Device: None PT Plan Problem List Problem List: Activity Tolerance, Gait Treatment/Plan Treatment Plan: Continue Plan of Care Treatment Plan: Bed Mobility, Education, Functional Activity Mariela, Functional Strength, Gait, Safety, Therapeutic Exercise, Transfers Treatment Duration: Nov 24, 2016 Frequency: 5 times per week Estimated Hrs Per Day: .25 hour per day Patient and/or Family Agrees t: Yes Safety Risks/Education Patient Education: Transfer Techniques Teaching Recipient: Patient Teaching Methods: Demonstration, Discussion Response to Teaching: Verbalize Understanding, Return Demonstration Discharge Recommendations Therapy D/C Recommendations: Home w/ Family Support Time/GCodes Time In: 1425 Time Out: 1440 Total Billed Treatment Time: 15 Total Billed Treatment 1 visit EVLowC 15 min G Codes Necessary: CARLOS Brock PT Nov 17, 2016 14:55
--- NOTE | 2016-11-17 15:18 | Anesthesia-General Post-Op ---
General Patient Condition Mental Status/LOC: Same as Preop Cardiovascular: Satisfactory Nausea/Vomiting: Absent Respiratory: Satisfactory Pain: Controlled Complications: Absent Post Op Complications Complications None Follow Up Care/Instructions Patient Instructions None needed. Anesthesia/Patient Condition Patient Condition Patient is doing well, sitting up in the chair, stable vital signs, no apparent adverse anesthesia problems. He is C/O some numbness in his left leg, which I explained to him was normal with epidural in place. Pain is under good control. He does describe what is most likely gas pressure per patient. We will continue to monitor the epidural status for pain control. CELIA REID DO Nov 17, 2016 15:18
--- NOTE | 2016-11-17 16:16 | Progress Note ---
Subjective Date Seen by Provider: Nov 17, 2016 Time Seen by Provider: 16:11 Subjective/Events-last exam Patient states she's doing well. He states his pain is controlled with that currently about 2 or 3 out of 10. He does have epidural for pain control. He states is passing some flatus through the loop ileostomy and has some liquid coming out of it as well. Patient using incentive spirometer some. Denies any nausea vomiting fever sweats chills shortness of breath or chest pain. Patient tolerating ice chips at this time. Objective Exam Vital Signs Date Time Temp Pulse Resp B/P (MAP) Pulse Ox O2 Delivery O2 Flow Rate FiO2 11/17/16 13:00 93 11/17/16 12:00 100.8 11/17/16 12:00 95 Room Air 11/17/16 09:29 97.8 11/17/16 08:00 99.6 11/17/16 08:00 95 Room Air 11/17/16 07:37 90 11/17/16 06:00 93 10 119/74 97 Room Air 11/17/16 05:00 101 18 116/71 94 Room Air 11/17/16 04:00 95 Room Air 11/17/16 04:00 93 12 108/64 93 Room Air 11/17/16 03:00 88 14 121/73 97 Room Air 11/17/16 02:00 100 12 96/55 94 Room Air 11/17/16 01:00 90 14 119/67 95 Room Air 11/17/16 01:00 91 11/17/16 00:00 94 14 122/78 95 Room Air 11/17/16 00:00 95 Room Air 11/16/16 23:00 90 11 121/73 95 Room Air 11/16/16 22:00 84 15 109/72 96 Room Air 11/16/16 21:00 90 13 111/76 96 Room Air 11/16/16 20:00 97 15 112/72 98 Room Air 11/16/16 20:00 95 Room Air 11/16/16 19:00 85 11/16/16 19:00 89 24 115/75 97 Room Air 11/16/16 18:07 97.8 11/16/16 17:17 97.8 Room Air 11/16/16 16:37 Room Air I & O 11/18/16 07:00 Intake Total 150 ml Output Total 700 ml Balance -550 ml Capillary Refill : Less Than 3 Seconds General Appearance: No Apparent Distress, WD/WN HEENT: PERRL/EOMI, Normal ENT Inspection Neck: Full Range of Motion, Normal Inspection, Non Tender, Supple, Carotid Bruit Respiratory: Normal Breath Sounds, No Accessory Muscle Use, No Respiratory Distress Cardiovascular: Regular Rate, Rhythm Gastrointestinal: soft, tenderness (inisional, ileostomy pink and functioning) Extremity: Normal Capillary Refill, Normal Inspection, Normal Range of Motion, Non Tender, No Calf Tenderness, No Pedal Edema Neurologic/Psychiatric: Alert, Oriented x3, No Motor/Sensory Deficits, Normal Mood/Affect, Other (incomplete exam due to epidural) Skin: Normal Color, Warm/Dry Lymphatic: No Adenopathy Results Lab Laboratory Tests 11/17/16 04:34: White Blood Count 8.2, Red Blood Count 3.79L, Hemoglobin 11.2L, Hematocrit 35L, Mean Corpuscular Volume 92, Mean Corpuscular Hemoglobin 30, Mean Corpuscular Hemoglobin Concent 32, Red Cell Distribution Width 16.7H, Platelet Count 211, Mean Platelet Volume 10.4, Sodium Level 137, Potassium Level 4.5, Chloride Level 106, Carbon Dioxide Level 19L, Anion Gap 12, Blood Urea Nitrogen 14, Creatinine 1.15, Estimat Glomerular Filtration Rate > 60, BUN/Creatinine Ratio 12, Glucose Level 117H, Calcium Level 7.8L, Phosphorus Level 4.6, Magnesium Level 1.5L, Total Bilirubin 0.6, Aspartate Amino Transf (AST/SGOT) 18, Alanine Aminotransferase (ALT/SGPT) 17, Alkaline Phosphatase 53, Total Protein 6.1L, Albumin 3.2 Assessment/Plan Assessment/Plan Assessment/Plan Status post low anterior resection and diverting loop ileostomy for rectal cancer Patient with epidural for pain control Physical therapy consult [facility] for accurate urine output Start Lovenox for DVT prophylaxis and SCDs Clear liquid diet Incentive spirometer Clinical Quality Measures DVT/VTE Risk/Contraindication: Risk Factor Score Per Nursin RFS Level Per Nursing on Admit: 4+=Very High ANGELICA BRITTON DO Nov 17, 2016 16:16
--- NOTE | 2016-11-17 20:30 | OPERATIVE REPORT ---
DATE OF SERVICE: 11/16/2016 PREOPERATIVE DIAGNOSIS: Adenocarcinoma of the rectum. POSTOPERATIVE DIAGNOSIS: Adenocarcinoma of the rectum. PROCEDURE: Laparoscopic to open low anterior resection and diverting loop ileostomy. ANESTHESIA: General. SURGEON: Adryan Sheikh DO DIESEL ENGINEER: Dr. Sofia assisted in retraction, dissection and closure. ESTIMATED BLOOD LOSS: 100 mL. SPECIMEN: Rectal mass. INDICATIONS: The patient is a 61-year-old male who was found to have adenocarcinoma of the rectum. He has undergone radiation and chemo already. He was explained risks and benefits of procedure and wished to proceed with procedure. Consent was signed and on the chart. DESCRIPTION OF PROCEDURE: The patient was taken to the operating suite, was prepped and draped in sterile fashion. Surgical pause was performed. A midline incision was made for hand port. Cautery was used to dissect down to the fascia, which was then opened to size for the port. A Gelport was then placed. A 12 mm trocar was placed in the right lower quadrant and insufflation was made. A second 12 mm trocar was then placed in the right upper quadrant. The abdomen was insufflated. The sigmoid colon had some slight adhesions along the left lower quadrant. These were taken down with the spatula cautery. At this point, the rectum was grasped and elevated and the spatula was used to start dissecting through the mesentery right at the pelvic brim and dissected all the way through. As the rectum was continued to be retracted up it was circumferentially dissected around using both spatula and a LigaSure. The sigmoid colon was also mobilized along the white line of Toldt. The rectal mass was able to be palpated and dissection was continued to be dissected down distally. There were some radiation changes present. On the right side of the rectum, there was also more palpable mass along the level of the palpable mass. Therefore, dissection was removed a little bit laterally away from the rectum to incorporate this in to the specimen. As the dissection continued to go more distally, a small flap was used to help elevate the bladder and the mass was able to be dissected around. Digital rectal exam was also performed to where we felt we were able to identify that we were distal to the mass 1 cm and the rectum was skeletonized in this area. Once skeletonized to this area, an endoscopic stapler was attempted to be placed around this. However, due to the patient having a narrow pelvis, this was extremely difficult. Therefore, we had to go to open technique. The midline incision was extended inferiorly after the Gelport was removed. A contour stapler was then able to be placed around the rectum just distal to the rectal mass and was then fired. The LigaSure was used to complete dissecting off the mesentery and a HUBER-75 blue staple load was used to fire across the proximal margin at the sigmoid colon. Specimen was removed. At this point, the distal portion of the sigmoid was then skeletonized and a pursestring stapler was fired across the distal portion of the sigmoid colon. This was then opened and a 29 anvil was inserted and secured using the pursestring. There was adequate length for reanastomosis. An end-to-end anastomosis was then created. Two rings were created at the staple line demonstrating adequate anastomosis. The abdomen was then irrigated with copious amounts of irrigation. Hemostasis had been achieved. A loop of ileum in the more distal portion was brought up after a small hole was made through one of the existing port sites. This was for a diverting loop ileostomy. It was brought out and a bridge was placed under it. The midline abdomen was then closed with 1 looped PDS and the skin was then closed with jose. At this time, attention was then made towards the diverting loop ileostomy which was then matured using 3-0 Vicryl sutures and the areas were washed and dried and sterile bandages and ostomy appliances were applied. The patient tolerated the procedure well without any complications and was taken to the recovery room in stable condition. Job ID: [id number] DocumentID: [id number] Dictated Date: 11/17/2016 16:30:55 Substance Addiction Coordinator Date: 11/17/2016 20:29:02 Dictated By: DO MONIKA ARREDONDO
[2016-11-17] MEDS: ENOXAPARIN 40 MG/0.4 ML (LOVENOX) SYR SC SCH (20:40)
[2016-11-18] VITALS (7 sets, daily range): BP systolic 123–134; BP diastolic 58–79
[2016-11-18] MEDS: EPIDURAL (SUFENTA 0.6MCG/ML BUPIVA 0.125%) 100 ML BAG EPI SCH (05:07)
[2016-11-18] MEDS: NS IV 1000 ML 1,000 ML IV SCH ×3 (05:08→23:04)
--- NOTE | 2016-11-18 08:02 | Diagnostic Imaging Report ---
EXAMINATION: Portable erect AP chest at 7:32 AM INDICATION: Elevated temperature postop There are no prior studies available for comparison. The heart size is within normal limits. There is an area of increased density in the right infrahilar region. Most likely this is due pneumonia/atelectasis. There is also elevation of the right hemidiaphragm. This may be long-standing in nature. The right upper lung and left lung are generally clear. The mediastinum is not widened. The osseous structures are intact. IMPRESSION: There is right lower lobe pneumonia/atelectasis. A followup exam would be recommended for continued evaluation. Dictated by: Dictated on workstation # [id number]
--- NOTE | 2016-11-18 09:04 | Progress Note ---
Subjective Date Seen by Provider: Nov 18, 2016 Time Seen by Provider: 08:55 Subjective/Events-last exam Patient pain controlled. Ostomy functioning. Tolerating liquids. T 100.0 overnight chest x ray pneumonia/atelectasis right lower lobe. Using incentive spirometer epidural in place at this time for pain control Objective Exam Vital Signs Date Time Temp Pulse Resp B/P (MAP) Pulse Ox O2 Delivery O2 Flow Rate FiO2 11/18/16 04:20 100.0 78 20 129/65 94 Room Air 11/18/16 00:15 99.9 99 20 123/67 95 Room Air 11/17/16 19:25 96 Room Air 11/17/16 19:20 98.6 96 18 128/69 96 Room Air 11/17/16 17:00 102 135/80 97 Room Air 11/17/16 16:00 103 125/78 96 Room Air 11/17/16 16:00 95 Room Air 11/17/16 15:00 102 121/80 97 Room Air 11/17/16 14:00 101 106/55 92 Room Air 11/17/16 13:00 100 130/83 96 Room Air 11/17/16 13:00 93 11/17/16 12:00 100.8 11/17/16 12:00 95 Room Air 11/17/16 11:00 94 116/70 96 Room Air 11/17/16 10:00 101 14 122/67 91 Room Air 11/17/16 09:29 97.8 11/17/16 09:00 93 118/68 96 Room Air Capillary Refill : Less Than 3 Seconds General Appearance: No Apparent Distress, WD/WN HEENT: PERRL/EOMI, Normal ENT Inspection Neck: Full Range of Motion, Normal Inspection, Non Tender, Supple, Carotid Bruit Respiratory: Normal Breath Sounds, No Accessory Muscle Use, No Respiratory Distress Cardiovascular: Regular Rate, Rhythm Gastrointestinal: soft, tenderness (inisional, ileostomy pink and functioning) Extremity: Normal Capillary Refill, Normal Inspection, Normal Range of Motion, Non Tender, No Calf Tenderness, No Pedal Edema Neurologic/Psychiatric: Alert, Oriented x3, No Motor/Sensory Deficits, Normal Mood/Affect, Other (incomplete exam due to epidural) Skin: Normal Color, Warm/Dry Lymphatic: No Adenopathy Assessment/Plan Assessment/Plan Assessment/Plan Status post low anterior resection and diverting loop ileostomy for rectal cancer pneumonia/atelectasis wolf likely atelectasis repeat chest x ray in am encouraged IS Patient with epidural for pain control dc today Physical therapy consulted [facility] dc Lovenox for DVT prophylaxis and SCDs soft diet Incentive spirometer labs ordered vicodin/morphine for pain control Clinical Quality Measures DVT/VTE Risk/Contraindication: Risk Factor Score Per Nursin RFS Level Per Nursing on Admit: 4+=Very High ANGELICA BRITTON DO Nov 18, 2016 09:04
[2016-11-18] MEDS: FAMOTIDINE 20MG/2ML IV (PEPCID) IVP SCH (09:24)
--- NOTE | 2016-11-18 10:19 | Progress Note-Hospitalist ---
Progress Note HPI/CC on Admission CC: Medical management following uncomplicated lap to open low anterior resection and diverting loop ileostomy per Dr Sheikh HPI: This is a 61-year-old white male clinic patient at [facility] in [place] of Dr. Galeano who presents to the ICU following an uncomplicated resection of colon mass confirmed cancer. He reports that he hasn't seen a doctor for a long time and denies any other significant medical problems other than the colon mass. 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 I review laboratory and vital signs. He currently has an epidural and overall doing well per RN. Progress Notes/Assess & Plan Date Seen 11/18/16 Time Seen by Provider: 09:30 Admission Dx/Process Assessment: Status post uncomplicated lap to open low anterior resection and diverting loop ileostomy POD # 1 Colon cancer adeno-type Mild post op anemia due to blood loss from surgery Diagonsis/Assessment & Plan Chart Review: Noted fever over night CXR showed early atelectasis vs infiltrate Epidural DC so ordered breathing treatments and will aggressively nutrition counselor on IS usage Patient Interview: Pt states that the epidural has not yet been DC Pt was informed that it is possible for him to develop pneumonia. I counseled pt to use IS 20 times an hour. Pt confirms using IS last night and he states he is in pain and cannot cough. Physical exam stable. Lungs sound good Tm 100.8, pleasant, O x 3, flat affect, supine in bed RRR, CTAB no edema Assessment: Status post uncomplicated lap to open low anterior resection and diverting loop ileostomy POD # 2 Colon cancer adeno-type Mild post op anemia due to blood loss from surgery Early ATX on CXR ordered nebs and aggressive IS use Plan: SCDs for DVT prophylaxis Monitor closely Monitor labs IS 20 times per hour DC Epidural soon Scribed by Arcelia Dhaliwal under the direct supervision of Dr. Hatch. PAOLA HATCH DO Nov 18, 2016 10:19
[2016-11-18] MEDS: RT-ALBUTEROL SULF 2.5 MG/3 ML PRE-MIX VIAL IH SCH ×4 (10:25→21:11)
--- NOTE | 2016-11-18 10:56 | Physical Therapy Daily Note ---
PT Daily Note-Current Subjective Pt was lying in bed prior to tx and agreeable to tx. Pt reports numbness and weakness in both legs due to epidural. Pt was sitting in recliner with nurse call, phone, tray, all needs in reach post tx. Pain Numeric Pain Scale: 0-No Pain Location: No Pain Reported Mental Status Patient Orientation: Normal For Age Attachments: IV epidural Transfers Functional [place] Measure 0=Not Assessed/NA 4=Minimal Assistance 1=Total Assistance 5=Supervision or Setup 2=Maximal Assistance 6=Modified [place] 3=Moderate Assistance 7=Complete IndependenceIRFPAI Quality Coding Scale 6 Independent with activity with or without an assistive device 5 Patient requires set up or clean up by helper. Patient completes activity by themselves 4 Supervision or touching assist (CGA). [place] provide cues , steadying assist 3 The helper provides less than half the effort to complete the activity 2 The helper provides more than half the effort to complete the activity 1 Dependent. The helper does all the effort to complete an activity 7 Patient refused to complete or attempt activity 9 The patient did not perform the activity before the current illness or injury 88 Not attempted due to Medical conditions or safety concerns Transfers (B, C, W/C) (FIM): 4 Supine to/from Sit: 4 Sit to/from Stand: 4 Pt was min assist with sit to stand transfer for safety. Cues for positioning and hand placement. Exercises Seated Therapy Exercises: Ankle pumps, Long arc quads, Hip flexion, Hip abd/add Seated Reps: 20 Treatments Pt transferred to recliner with min assist for safety and completed seated exercises for functional LE strengthening. Assessment Current Status: Good Progress Pt did not want to ambulate due to numbness and weakness in legs from epidural. PT Residential Goals Compliance Specialist Goals PT Compliance Specialist Goals Time Frame: Nov 24, 2016 Transfers (B,C,W/C) (FIM): 7 Gait (FIM): 7 Gait distance (FIM): 3=150 ft Gait Level of Assist: 7 Gait Assistive Device: None PT Plan Problem List Problem List: Activity Tolerance, Functional Strength, Safety, Balance, Gait, Transfer, Bed Mobility, ROM Treatment/Plan Treatment Plan: Continue Plan of Care Treatment Plan: Bed Mobility, Education, Functional Activity Mariela, Functional Strength, Gait, Safety, Therapeutic Exercise, Transfers Treatment Duration: Nov 24, 2016 Frequency: 5 times per week Estimated Hrs Per Day: .25 hour per day Patient and/or Family Agrees t: Yes Safety Risks/Education Patient Education: Transfer Techniques, Reviewed Precautions, Correct Positioning, Safety Issues Teaching Recipient: Patient Response to Teaching: Verbalize Understanding, Reinforcement Needed Time/GCodes Time In: 1030 Time Out: 1045 Total Billed Treatment Time: 15 Total Billed Treatment 1 visit EX 15 DEIDRE YA PT Nov 18, 2016 10:56
[2016-11-18] MEDS: HYDROcodone/APAP 5 MG/325 MG (LORTAB) TAB PO PRN ×2 (11:34→16:05)
--- NOTE | 2016-11-18 11:38 | Anesthesia-Regional Post-Op ---
Regional Patient Condition Mental Status: Alert, Oriented x3 Circulation: Same as Pre-Op Headache: Absent Sensation: Full Recovery Motor Block: Absent Post Op Complications Complications None Follow Up Care/Instructions Patient Instructions None needed. Anesthesia/Patient Condition Patient is doing well, no complaints, stable vital signs, no apparent adverse anesthesia problems. No complications reported per nursing. Nursing reports that per Dr. Sheikh's request, epidural is to be D/C'd for ambulation & will be converted to oral medication for post op pain control. Nursing staff to pull catheter and document. RILEY SIMMS CRNA Nov 18, 2016 11:38
[2016-11-18] MEDS: morphine INJ 4 MG/ML 1 ML (VIAL/SYRINGE) IVP PRN ×2 (18:11→23:23)
[2016-11-18 18:12] LABS: MEAN PLATELET VOLUME 10.4 FL (7.4-10.4); RED BLOOD COUNT 3.31 10^6/uL (4.35-5.85); WHITE BLOOD COUNT 6.5 10^3/uL (4.3-11.0)
[2016-11-18 18:28] LABS: ANION GAP 8 MMOL/L (5-14); BLOOD UREA NITROGEN 12 MG/DL (7-18); BUN/CREATININE RATIO 13; CALCIUM 7.8 MG/DL (8.5-10.1); CARBON DIOXIDE 22 MMOL/L (21-32); CHLORIDE 105 MMOL/L (98-107); CREATININE SERUM 0.93 MG/DL (0.60-1.30); GFR ESTIMATED > 60; GLUCOSE 118 MG/DL (70-105); MAGNESIUM 1.6 MG/DL (1.8-2.4); POTASSIUM 3.5 MMOL/L (3.6-5.0); SODIUM 135 MMOL/L (135-145)
[2016-11-18] MEDS ORDERED: ACETAMINOPHEN 325 MG TABLET/CAPLET (TYLENOL) PO PRN (19:30)
[2016-11-18] MEDS ORDERED: MAGNESIUM 1 GM/100 ML IVPB 100 ML IV NR (19:30)
[2016-11-18] MEDS: ENOXAPARIN 40 MG/0.4 ML (LOVENOX) SYR SC SCH (21:09)
[2016-11-19 00:54] VITALS: BP 130/65
[2016-11-19 04:00] VITALS: BP 143/77
[2016-11-19 05:31] LABS: MEAN PLATELET VOLUME 11.1 FL (7.4-10.4); RED BLOOD COUNT 2.89 10^6/uL (4.35-5.85); RED CELL DISTRIBUTION WIDTH 15.7 % (10.0-14.5); WHITE BLOOD COUNT 4.6 10^3/uL (4.3-11.0)
[2016-11-19 05:41] LABS: ANION GAP 9 MMOL/L (5-14); BLOOD UREA NITROGEN 9 MG/DL (7-18); BUN/CREATININE RATIO 12; CALCIUM 7.7 MG/DL (8.5-10.1); CARBON DIOXIDE 19 MMOL/L (21-32); CHLORIDE 108 MMOL/L (98-107); CREATININE SERUM 0.78 MG/DL (0.60-1.30); GFR ESTIMATED > 60; GLUCOSE 98 MG/DL (70-105); MAGNESIUM 1.8 MG/DL (1.8-2.4); POTASSIUM 3.6 MMOL/L (3.6-5.0); SODIUM 136 MMOL/L (135-145)
[2016-11-19] MEDS: NS IV 1000 ML 1,000 ML IV SCH (06:38)
[2016-11-19 07:42] VITALS: BP 148/71
--- NOTE | 2016-11-19 08:48 | Diagnostic Imaging Report ---
INDICATION: Followup pneumonia. COMPARISON: 11/18/2016. FINDINGS: Stable bandlike opacities in the right lung base likely due to atelectasis. Scattered linear opacities in the left lung base are unchanged and also likely due to atelectasis. No pleural effusion or pneumothorax. Normal heart size and pulmonary vasculature. IMPRESSION: Stable bandlike atelectasis in the right lung base. No consolidation to suggest pneumonia. Dictated by: Dictated on workstation # [id number]
[2016-11-19] MEDS: HYDROcodone/APAP 5 MG/325 MG (LORTAB) TAB PO PRN ×2 (08:49→13:29)
[2016-11-19] MEDS: FAMOTIDINE 20MG/2ML IV (PEPCID) IVP SCH (09:00)
--- NOTE | 2016-11-19 09:00 | Physical Therapy Daily Note ---
PT Daily Note-Current Subjective Patient is up in room independently with spouse. Agrees to PT to address safe mobility. Pain Numeric Pain Scale: 8 Location: Lower Location Body Site: Abdomen Pain Description: Pressure, Acute Mental Status Patient Orientation: Normal For Age Attachments: Colostomy/Ileostomy, IV Transfers Functional [place] Measure 0=Not Assessed/NA 4=Minimal Assistance 1=Total Assistance 5=Supervision or Setup 2=Maximal Assistance 6=Modified [place] 3=Moderate Assistance 7=Complete IndependenceIRFPAI Quality Coding Scale 6 Independent with activity with or without an assistive device 5 Patient requires set up or clean up by helper. Patient completes activity by themselves 4 Supervision or touching assist (CGA). [place] provide cues , steadying assist 3 The helper provides less than half the effort to complete the activity 2 The helper provides more than half the effort to complete the activity 1 Dependent. The helper does all the effort to complete an activity 7 Patient refused to complete or attempt activity 9 The patient did not perform the activity before the current illness or injury 88 Not attempted due to Medical conditions or safety concerns Transfers (B, C, W/C) (FIM): 7 Sit to/from Stand: 7 Gait Training Gait (FIM): 7 Distance (FIM): 3=150 ft Distance: 300' Gait Level of Assist: 7 Gait Assistive Device: None safe, functional Assessment Dr. Sheikh in to assess patient and states he will dismiss to home on this date. PT Ui Designer Goals Shelter Goals PT Shelter Goals Time Frame: Nov 24, 2016 Transfers (B,C,W/C) (FIM): 7 Gait (FIM): 7 Gait distance (FIM): 3=150 ft Gait Level of Assist: 7 Gait Assistive Device: None PT Plan Treatment/Plan Treatment Plan: Discontinue PT, goals met Treatment Plan: Bed Mobility, Education, Functional Activity Marieal, Functional Strength, Gait, Safety, Therapeutic Exercise, Transfers Treatment Duration: Nov 24, 2016 Frequency: 5 times per week Estimated Hrs Per Day: .25 hour per day Patient and/or Family Agrees t: Yes Time/GCodes Time In: 840 Time Out: 850 Total Billed Treatment Time: 10 Total Billed Treatment 1 visit FA 10 min CARLOS CASEY PT Nov 19, 2016 09:00
[2016-11-19] MEDS: RT-ALBUTEROL SULF 2.5 MG/3 ML PRE-MIX VIAL IH SCH ×3 (10:27→21:25)
--- NOTE | 2016-11-19 11:12 | Progress Note-Hospitalist ---
Progress Note HPI/CC on Admission CC: Medical management following uncomplicated lap to open low anterior resection and diverting loop ileostomy per Dr Sheikh HPI: This is a 61-year-old white male clinic patient at [facility] of Dr. Galeano who presents to the ICU following an uncomplicated resection of colon mass confirmed cancer. He reports that he hasn't seen a doctor for a long time and denies any other significant medical problems other than the colon mass. 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 I review laboratory and vital signs. He currently has an epidural and overall doing well per RN. Progress Notes/Assess & Plan Date Seen 11/19/16 Time Seen by Provider: 10:00 Admission Dx/Process Assessment: Status post uncomplicated lap to open low anterior resection and diverting loop ileostomy POD # 1 Colon cancer adeno-type Mild post op anemia due to blood loss from surgery Diagonsis/Assessment & Plan Chart Review: Vitals stable No fever CBC normal except Hgb 8.6 CMP normal CXR revealed subtle atelectasis, no pneumonia Patient Interview: Pt states he is doing well and has been using IS CXR discussed and looks much better. Pt was informed that he has no pneumonia Pt states he has been ambulating the [place] Physical exam stable. Lungs sound perfect. Pt states he is eating well and has had BMs Pt requested Sprite and ice AFVSS, pleasant, O x 3, flat affect, supine in bed RRR, CTAB no edema Assessment: Status post uncomplicated lap to open low anterior resection and diverting loop ileostomy POD # 3 Colon cancer adeno-type Mild post op anemia due to blood loss from surgery Early ATX on CXR ordered nebs and aggressive IS use much improved and no fever Plan: SCDs for DVT prophylaxis Monitor closely Monitor labs IS 20 times per hour Ambulate Scribed by Arcelia Dhaliwal under the direct supervision of Dr. Hatch. PAOLA HATCH DO Nov 19, 2016 11:12
[2016-11-19 12:00] VITALS: BP 141/70
--- NOTE | 2016-11-19 14:56 | Progress Note ---
Subjective Date Seen by Provider: Nov 19, 2016 Time Seen by Provider: 14:51 Subjective/Events-last exam Feeling well. pain controlled. ileostomy functionin tolerating diet. low grade fever last night. chest x ray atelectasis slight drop in hgb no new complaints. Objective Exam Vital Signs Date Time Temp Pulse Resp B/P (MAP) Pulse Ox O2 Delivery O2 Flow Rate FiO2 11/19/16 12:00 98.3 74 22 141/70 98 Room Air 11/19/16 07:42 98.1 79 20 148/71 97 Room Air 11/19/16 04:00 98.8 88 20 143/77 97 Room Air 11/19/16 00:54 99.4 100 20 130/65 96 Room Air 11/18/16 23:20 99.3 11/18/16 21:12 94 Room Air 11/18/16 19:52 96 11/18/16 19:45 96 Room Air 11/18/16 19:40 94 96 21 11/18/16 19:30 100.4 100 18 123/58 96 Room Air 11/18/16 16:55 100.4 94 18 134/79 98 Room Air 11/18/16 16:49 97 Room Air Capillary Refill : Less Than 3 Seconds General Appearance: No Apparent Distress, WD/WN HEENT: PERRL/EOMI, Normal ENT Inspection Neck: Full Range of Motion, Normal Inspection, Non Tender, Supple, Carotid Bruit Respiratory: Normal Breath Sounds, No Accessory Muscle Use, No Respiratory Distress Cardiovascular: Regular Rate, Rhythm Gastrointestinal: soft, tenderness (inisional, ileostomy pink and functioning) Extremity: Normal Capillary Refill, Normal Inspection, Normal Range of Motion, Non Tender, No Calf Tenderness, No Pedal Edema Neurologic/Psychiatric: Alert, Oriented x3, No Motor/Sensory Deficits, Normal Mood/Affect, Other (incomplete exam due to epidural) Skin: Normal Color, Warm/Dry Lymphatic: No Adenopathy Results Lab Laboratory Tests 11/18/16 18:00: White Blood Count 6.5, Red Blood Count 3.31L, Hemoglobin 9.8L, Hematocrit 31L, Mean Corpuscular Volume 92, Mean Corpuscular Hemoglobin 30, Mean Corpuscular Hemoglobin Concent 32, Red Cell Distribution Width 16.0H, Platelet Count 185, Mean Platelet Volume 10.4, Sodium Level 135, Potassium Level 3.5L, Chloride Level 105, Carbon Dioxide Level 22, Anion Gap 8, Blood Urea Nitrogen 12, Creatinine 0.93, Estimat Glomerular Filtration Rate > 60, BUN/Creatinine Ratio 13, Glucose Level 118H, Calcium Level 7.8L, Magnesium Level 1.6L 11/19/16 05:07: White Blood Count 4.6, Red Blood Count 2.89L, Hemoglobin 8.6L, Hematocrit 27L, Mean Corpuscular Volume 92, Mean Corpuscular Hemoglobin 30, Mean Corpuscular Hemoglobin Concent 32, Red Cell Distribution Width 15.7H, Platelet Count 158, Mean Platelet Volume 11.1H, Sodium Level 136, Potassium Level 3.6, Chloride Level 108H, Carbon Dioxide Level 19L, Anion Gap 9, Blood Urea Nitrogen 9, Creatinine 0.78, Estimat Glomerular Filtration Rate > 60, BUN/Creatinine Ratio 12, Glucose Level 98, Calcium Level 7.7L, Magnesium Level 1.8 Assessment/Plan Assessment/Plan Assessment/Plan Status post low anterior resection and diverting loop ileostomy for rectal cancer atelectasis -encouraged IS postoperative anemia follow labs Physical therapy consulted Lovenox for DVT prophylaxis and SCDs soft diet Incentive spirometer labs ordered vicodin/morphine for pain control Clinical Quality Measures DVT/VTE Risk/Contraindication: Risk Factor Score Per Nursin RFS Level Per Nursing on Admit: 4+=Very High ANGELICA BRITTON DO Nov 19, 2016 14:56
[2016-11-19 16:00] VITALS: BP 140/69
[2016-11-19 20:00] VITALS: BP 123/64
[2016-11-19] MEDS: ENOXAPARIN 40 MG/0.4 ML (LOVENOX) SYR SC SCH (21:14)
[2016-11-20 00:30] VITALS: BP 141/74
[2016-11-20] MEDS: HYDROcodone/APAP 5 MG/325 MG (LORTAB) TAB PO PRN ×2 (01:42→06:04)
[2016-11-20 06:30] LABS: MEAN PLATELET VOLUME 10.3 FL (7.4-10.4); RED BLOOD COUNT 2.89 10^6/uL (4.35-5.85); RED CELL DISTRIBUTION WIDTH 15.4 % (10.0-14.5); WHITE BLOOD COUNT 3.9 10^3/uL (4.3-11.0)
[2016-11-20 06:46] LABS: ANION GAP 8 MMOL/L (5-14); BLOOD UREA NITROGEN 8 MG/DL (7-18); BUN/CREATININE RATIO 10; CALCIUM 8.3 MG/DL (8.5-10.1); CARBON DIOXIDE 24 MMOL/L (21-32); CHLORIDE 107 MMOL/L (98-107); CREATININE SERUM 0.78 MG/DL (0.60-1.30); GFR ESTIMATED > 60; GLUCOSE 97 MG/DL (70-105); POTASSIUM 3.7 MMOL/L (3.6-5.0); SODIUM 139 MMOL/L (135-145)
[2016-11-20] MEDS: RT-ALBUTEROL SULF 2.5 MG/3 ML PRE-MIX VIAL IH SCH (07:09)
[2016-11-20 08:00] VITALS: BP 124/58
[2016-11-20] MEDS ORDERED: HYDR-3812 PO (09:01)
--- NOTE | 2016-11-20 09:03 | Discharge Inst-Simple/Standard ---
Discharge Inst-Standard Discharge Medications New, Converted or Re-Newed RX: RX on Chart Patient Instructions/Follow Up Plan of Care/Instructions/FU: 2 weeks Kori Activity as Tolerated: No Discharge Diet: Regular Diet Other Inst to Patient Follow up Appt: Make appointment for 2 week. Instructions: No lifting greater than 10 pounds. No strenuous activity. May shower, no tub bath or soaking. Use incentive spirometer at home as directed. No Smoking Skin/Wound Care: May remove bandages. Symptoms to Report: Appetite Changes, Extremity Discoloration, Numbness/Tingling, Swelling Increased , Bleeding Excessive, Eyesight Changes, Pain Increased, Urine Color Change, Constipation(Persistent), Fever over 101 degree F, Pain/Pressure in chest, Urinating Difficulty, Cough Up/Vomit Blood, Heart Beat Irreg/Pounding, Pain/ Pressure in jaw, Vaginal Bleeding Increase, Cramps in feet or legs, Lightheadedness, Pain/Pressure in shoulder, Diarrhea(Persistent), Memory Changes Suddenly, Questions/Concerns, Weight gain consecutive days, Dizziness/ Fainting, Nausea/Vomiting, Shortness of Breath, Weight gain over 2 pounds If questions or concerns contact your physician Or seek help at emergency department. ANGELICA BRITTON DO Nov 20, 2016 09:03
[2016-11-20 10:30] VITALS: BP 128/60
--- NOTE | 2016-11-20 10:30 | Progress Note ---
Subjective Date Seen by Provider: Nov 20, 2016 Time Seen by Provider: 10:29 Subjective/Events-last exam Patient feeling well. He is tolerating diet. His ostomy is functioning. He denies any nausea vomiting fever sweats chills shortness of breath or chest pain. His hemoglobin stable. Patient wanting to go home. Objective Exam Vital Signs Date Time Temp Pulse Resp B/P (MAP) Pulse Ox O2 Delivery O2 Flow Rate FiO2 11/20/16 08:00 98.0 97 20 124/58 96 Room Air 11/20/16 07:09 97 Room Air 11/20/16 00:30 99.9 78 18 141/74 96 Room Air 11/19/16 21:25 96 Room Air 11/19/16 20:00 99.7 86 20 123/64 97 Room Air 11/19/16 20:00 Room Air 11/19/16 16:00 98.8 103 19 140/69 93 Room Air 11/19/16 15:05 94 Room Air 11/19/16 12:00 98.3 74 22 141/70 98 Room Air Capillary Refill : Less Than 3 Seconds General Appearance: No Apparent Distress, WD/WN HEENT: PERRL/EOMI, Normal ENT Inspection Neck: Full Range of Motion, Normal Inspection, Non Tender, Supple, Carotid Bruit Respiratory: Normal Breath Sounds, No Accessory Muscle Use, No Respiratory Distress Cardiovascular: Regular Rate, Rhythm Gastrointestinal: soft, tenderness (inisional, ileostomy pink and functioning. No erythema or fluctuance around the incision) Extremity: Normal Capillary Refill, Normal Inspection, Normal Range of Motion, Non Tender, No Calf Tenderness, No Pedal Edema Neurologic/Psychiatric: Alert, Oriented x3, No Motor/Sensory Deficits, Normal Mood/Affect, Other (incomplete exam due to epidural) Skin: Normal Color, Warm/Dry Lymphatic: No Adenopathy Results Lab Laboratory Tests 11/20/16 06:20: White Blood Count 3.9L, Red Blood Count 2.89L, Hemoglobin 8.6L, Hematocrit 26L, Mean Corpuscular Volume 91, Mean Corpuscular Hemoglobin 30, Mean Corpuscular Hemoglobin Concent 33, Red Cell Distribution Width 15.4H, Platelet Count 184, Mean Platelet Volume 10.3, Sodium Level 139, Potassium Level 3.7, Chloride Level 107, Carbon Dioxide Level 24, Anion Gap 8, Blood Urea Nitrogen 8, Creatinine 0.78, Estimat Glomerular Filtration Rate > 60, BUN/Creatinine Ratio 10, Glucose Level 97, Calcium Level 8.3L Assessment/Plan Assessment/Plan Assessment/Plan Status post low anterior resection and diverting loop ileostomy for rectal cancer atelectasis -encouraged IS postoperative anemia stable Diet as tolerates Incentive spirometer Patient doing well as hemoglobin stable. Okay to DC home today he has any problems he'll follow up at that time otherwise follow up in 2 weeks. Clinical Quality Measures DVT/VTE Risk/Contraindication: Risk Factor Score Per Nursin RFS Level Per Nursing on Admit: 4+=Very High ANGELICA BRITTON DO Nov 20, 2016 10:30
[2016-12-24] MEDS ORDERED: HYDR-3812 PO (15:39)
== END 2016-11-20 10:30 | disposition home or self-care (01) | DRG 330 ==
LOC: 4TH 07:22 → SURG 07:23 → ICU 13:39 → 4TH 11-17 19:57
PROVIDERS: ADMIT Surgery; ATTEND Surgery
PROC: 0DBN0ZZ Excision of Sigmoid Colon, Open Approach (ICD-10-PCS; 2016-11-16)
PROC: 0D1B0Z4 Bypass Ileum to Cutaneous, Open Approach (ICD-10-PCS; 2016-11-16)
PROC: 0DBP0ZZ Excision of Rectum, Open Approach (ICD-10-PCS; principal; 2016-11-16 09:08)
DX: C20 Malignant neoplasm of rectum (principal); J98.11 Atelectasis; D62 Acute posthemorrhagic anemia
CPT/HCPCS: 36415; 71010; 80048; 80053; 83735; 84100; 85027; 86850; 86900; 86901; 88305; 88309; 88341; 88342; 88381; 94640; 94664; 94760

== ENCOUNTER 2016-12-15 14:09 | Outpatient (RCR) | payer OTHER ==
[~2016-12-15 14:09] MED LIST changes: -GADOBUTROL 10 MMOL/10 ML (GADAVIST) VIAL IV ONE; +HYDR-3812 PO
[2016-12-15 14:32] LABS: BASOPHILS % (AUTO) 0 % (0-10); EOSINOPHILS # (AUTO) 0.2 10^3/uL (0.0-0.3); EOSINOPHILS % (AUTO) 3 % (0-10); LYMPHOCYTES # (AUTO) 0.7 X 10^3 (1.0-4.0); LYMPHOCYTES % (AUTO) 11 % (12-44); MEAN CORPUSCULAR HEMOGLOBIN 28 PG (25-34); MEAN CORPUSCULAR HGB CONC 33 G/DL (32-36); MEAN CORPUSCULAR VOLUME 87 FL (80-99); MEAN PLATELET VOLUME 9.7 FL (7.4-10.4); MONOCYTES # (AUTO) 0.6 X 10^3 (0.0-1.0); MONOCYTES % (AUTO) 10 % (0-12); NEUTROPHILS # (AUTO) 4.8 X 10^3 (1.8-7.8); NEUTROPHILS % (AUTO) 76 % (42-75); PLATELET COUNT 353 10^3/uL (130-400); RED BLOOD COUNT 3.61 10^6/uL (4.35-5.85); RED CELL DISTRIBUTION WIDTH 13.8 % (10.0-14.5); WHITE BLOOD COUNT 6.3 10^3/uL (4.3-11.0)
[2016-12-15 15:07] LABS: ALBUMIN 3.6 GM/DL (3.2-4.5); BILIRUBIN,TOTAL 0.3 MG/DL (0.1-1.0); CREATININE SERUM 1.23 MG/DL (0.60-1.30); POTASSIUM 5.2 MMOL/L (3.6-5.0); TOTAL PROTEIN 7.2 GM/DL (6.4-8.2)
[2016-12-24] MEDS ORDERED: HYDR-3812 PO (15:39)
== END 2016-12-23 09:41 | disposition home or self-care (01) ==
LOC: ONC 14:09
PROVIDERS: ATTEND Internal Medicine Hematology & Oncology
DX: C20 Malignant neoplasm of rectum (principal)
CPT/HCPCS: 36415; 80053; 82378; 85025

== ENCOUNTER → 2016-12-16 | Outpatient (CLI) | payer OTHER | LOC: WOUNDCARE 07:56 | PROVIDERS: ATTEND Surgery | DX: L98.492 Non-pressure chronic ulcer of skin of other sites with fat layer exposed (principal); T81.31XA Disruption of external operation (surgical) wound, not elsewhere classified, initial encounter; C20 Malignant neoplasm of rectum; Z93.3 Colostomy status | CPT/HCPCS: 11042; 87070; 87075; 87077; 87186; 87205 ==

== ENCOUNTER 2016-12-21 12:10 | Outpatient (CLI) | payer OTHER ==
[~2016-12-21] VITALS: Ht 185.4 cm; Wt 106.6 kg
== END 2016-12-21 13:57 ==
LOC: PREOP 12:10
PROVIDERS: ATTEND Surgery
DX: Z01.818 Encounter for other preprocedural examination (principal); C20 Malignant neoplasm of rectum

== ENCOUNTER → 2016-12-21 | Outpatient (CLI) | payer OTHER | LOC: WOUNDCARE 15:01 | PROVIDERS: ATTEND Surgery | DX: L98.492 Non-pressure chronic ulcer of skin of other sites with fat layer exposed (principal); T81.31XA Disruption of external operation (surgical) wound, not elsewhere classified, initial encounter; C20 Malignant neoplasm of rectum; Z93.3 Colostomy status | CPT/HCPCS: 11042; 97605 ==

== ENCOUNTER → 2016-12-23 | Outpatient (CLI) | payer OTHER | LOC: WOUNDCARE 10:18 | PROVIDERS: ATTEND Surgery | DX: L98.492 Non-pressure chronic ulcer of skin of other sites with fat layer exposed (principal); T81.31XA Disruption of external operation (surgical) wound, not elsewhere classified, initial encounter; C20 Malignant neoplasm of rectum; Z93.3 Colostomy status | CPT/HCPCS: 97605 ==

== ENCOUNTER 2016-12-24 10:15 | Day surgery (SDC) | payer OTHER ==
[~2016-12-24] VITALS: Ht 185.4 cm; Wt 106.6 kg
--- OUTSIDE RECORDS SUMMARY | 2016-12-24 10:20 | XMS REPORT | Continuity of Care Document ---
Author Author [facility] Organization [facility] Address Unknown Phone Unavailable Allergies Active Description Code Type Severity Reaction Onset Reported/Identified Relationship to Patient Clinical Status Yes No Known Medication Allergies Drug N/A N/A Medications Problems Procedures Results Encounters ACCT No. Visit Date/Time Discharge Status Pt. Type Provider Facility Loc./Unit Complaint [id number] 03/31/2016 10:48:00 2016 14:02:00 DIS Emergency JAVIER MARTINEZ [facility] ED l ear laceration [id number] 04/02/2016 11:50:00 ACT Unknown
[2016-12-24 10:34] VITALS: BP 133/84
[2016-12-24] MEDS ORDERED: ceFAZolin 2 GM/NS 50 ML IV ONE (10:45)
[2016-12-24] MEDS ORDERED: CATHETER FLUSH 10 ML SYR IV PRN (10:45)
[2016-12-24] MEDS ORDERED: LACTATED RINGERS 1,000 ML IV SCH (12:15)
--- NOTE | 2016-12-24 13:16 | Progress Note-Pre Operative ---
Pre-Operative Progress Note H&P Reviewed The H&P was reviewed, patient examined and no changes noted. Date Seen by Provider: Dec 24, 2016 Time Seen by Provider: 13:15 Date H&P Reviewed: Dec 24, 2016 Time H&P Reviewed: 13:15 Pre-Operative Diagnosis: rectal cancer ANGELICA BRITTON DO Dec 24, 2016 1:16 pm
[2016-12-24] MEDS ORDERED: BUPIVACAINE 0.5% 30 ML (SENSORCAINE) VIAL ONE (13:29)
[2016-12-24] MEDS ORDERED: LIDOCAINE 1% INJ 20 ML (XYLOCAINE) VIAL ONE (13:29)
[2016-12-24] MEDS ORDERED: 0.9% SODIUM CHLORIDE PF INJ 20 ML VIAL ONE (13:29)
[2016-12-24] MEDS ORDERED: HEParin (CENTRAL IV FLUSH) 500 UNIT/5 ML SYR ONE (13:29)
[2016-12-24] MEDS ORDERED: MIDAZOLAM 2 MG/2 ML (VERSED) VIAL ONE (14:00)
[2016-12-24] MEDS ORDERED: fentaNYL INJECTION 100 MCG/2 ML AMP ONE (14:00)
[2016-12-24] MEDS ORDERED: PROPOFOL INJECTION 50 ML IV ONE ×3 (14:00→15:14)
[2016-12-24] MEDS ORDERED: LACTATED RINGERS 1,000 ML IV ONE (14:06)
[2016-12-24] MEDS ORDERED: HYDR-3812 PO ×2 (15:39)
--- NOTE | 2016-12-24 15:39 | Progress Note-Post Operative ---
Post-Operative Progess Note Surgeon (s)/Watch Repairer (s) Surgeon ANGELICA RBITTON DO Watch Repairer: na Pre-Operative Diagnosis rectal cancer Post-Operative Diagnosis same Procedure & Operative Findings Date of Procedure 12/24/16 Procedure Performed/Findings port placement u/s guided Anesthesia Type mac Estimated Blood Loss Estimated blood loss (mL): min Specimens/Packing Specimens Removed ANGELICA Noriega DO Dec 24, 2016 3:39 pm
--- NOTE | 2016-12-24 15:42 | Discharge Inst-Simple/Standard ---
Discharge Inst-Standard Discharge Medications New, Converted or Re-Newed RX: RX on Chart Patient Instructions/Follow Up Plan of Care/Instructions/FU: 2 weeks Kori Activity as Tolerated: No Discharge Diet: Regular Diet Other Inst to Patient Follow up Appt: Make appointment for 2 week. Instructions: No lifting greater than 10 pounds. No strenuous activity. May shower in 24 hours, no tub bath or soaking. Use incentive spirometer at home as directed. No Smoking Skin/Wound Care: May remove bandages in 48 hours. You have special glue over incisions it will fall off on its own. Symptoms to Report: Appetite Changes, Extremity Discoloration, Numbness/Tingling, Swelling Increased , Bleeding Excessive, Eyesight Changes, Pain Increased, Urine Color Change, Constipation(Persistent), Fever over 101 degree F, Pain/Pressure in chest, Urinating Difficulty, Cough Up/Vomit Blood, Heart Beat Irreg/Pounding, Pain/ Pressure in jaw, Vaginal Bleeding Increase, Cramps in feet or legs, Lightheadedness, Pain/Pressure in shoulder, Diarrhea(Persistent), Memory Changes Suddenly, Questions/Concerns, Weight gain consecutive days, Dizziness/ Fainting, Nausea/Vomiting, Shortness of Breath, Weight gain over 2 pounds If questions or concerns contact your physician Or seek help at emergency department. ANGELICA BRITTON DO Dec 24, 2016 3:41 pm
[2016-12-24] MEDS ORDERED: ONDANSETRON 4 MG/2 ML (SDV) Z0FRAN IVP PRN (15:45)
[2016-12-24] MEDS ORDERED: morphine INJ 10 MG/ML 1ML (SYR OR VIAL) IVP PRN (15:45)
[2016-12-24 15:50] VITALS: BP 123/59
--- NOTE | 2016-12-24 16:03 | Diagnostic Imaging Report ---
EXAMINATION: Portable upright radiograph of the chest. INDICATION: Postoperative evaluation. COMPARISON: 11/19/2016. FINDINGS: The lungs appear clear. The heart size is normal. No effusion or pneumothorax. The mediastinum and arnaldo appear unremarkable. A right internal jugular port catheter is placed with the tip of the catheter at the mid SVC level. IMPRESSION: The right IJ port is placed with the tip at the mid SVC level. Dictated by: Dictated on workstation # [id number]
[2016-12-24 16:20] VITALS: BP 115/66
[2016-12-24 16:37] VITALS: BP 115/66
--- NOTE | 2016-12-24 16:42 | Diagnostic Imaging Report ---
EXAMINATION: Intraoperative view of the chest. INDICATION: Port placement. FINDINGS: 28 seconds of fluoroscopy time was utilized by Dr. Sheikh for placement of a port. The port tip is at the SVC level. IMPRESSION: A right IJ port is placed with the tip of the catheter at the SVC level. Dictated by: Dictated on workstation # [id number]
--- NOTE | 2016-12-25 06:21 | OPERATIVE REPORT ---
DATE OF SERVICE: 12/24/2016 PREOPERATIVE DIAGNOSIS: Rectal cancer. POSTOPERATIVE DIAGNOSIS: Rectal cancer. PROCEDURE: Port placement, right internal jugular vein using ultrasound guidance. SURGEON: Angelica Sheikh DO ANESTHESIA: MAC with local. ESTIMATED BLOOD LOSS: Minimal. COMPLICATIONS: None. INDICATIONS: The patient is a 61-year-old male with rectal cancer. He needs port placement for further chemotherapy treatment. He understands risks and benefits of procedure and wished to proceed with procedure. Consent was signed and on the chart. DESCRIPTION OF PROCEDURE: The patient was taken to the operating suite, was prepped and draped in sterile fashion. Surgical pause was performed. Using ultrasound, the right internal jugular vein was located. Local anesthetic was infiltrated into the area. Using micro access needle, the right internal jugular vein was accessed. Micro access wire was inserted and the needle was removed. Fluoroscopy assured proper placement. This was then converted over to the normal wire, actually making a stab incision and putting a access dilator over the wire leaving the wire and inserting the regular guidewire. This wire was then assured proper placement with fluoroscopy and the wire was secured. Local anesthetic was infiltrated in the neck all the way down to the chest and localized the right side of the chest for a pocket creation. A #15 blade scalpel was used to make an incision over the area. Dissection was taken down to the pectoral fascia. The pocket was then created bluntly. At this point, the dilating sheath was then advanced over the guidewire under fluoroscopy. The dilator and wire were removed. The Groshong catheter was inserted through the sheath and the sheath was then removed. The catheter was then tunneled down to the pocket in the right chest. Fluoroscopy was used to cut the catheter to length. It was secured to the port, which was then placed within the pocket in the usual fashion. The port was then accessed without difficulty. It was also flushed with saline and then with heparin. The subcutaneous tissues were then reapproximated using 3-0 Vicryl. The area was then washed and dried. Dermabond was placed over the incisions and sterile bandage was applied. The patient tolerated the procedure well without any complications and was taken to the recovery room in stable condition. Chest x-ray is pending. Job ID: [id number] DocumentID: [id number] Dictated Date: 12/24/2016 20:04:05 Historic Site Administrator Date: 12/25/2016 05:46:37 Dictated By: ANGELICA SHEIKH DO
== END 2016-12-24 16:40 | disposition home or self-care (01) ==
LOC: SDC 10:15
PROVIDERS: ATTEND Surgery
DX: C20 Malignant neoplasm of rectum (principal); Z93.2 Ileostomy status; E66.9 Obesity, unspecified; Z68.31 Body mass index [BMI] 31.0-31.9, adult
CPT/HCPCS: 71010; 87081

== ENCOUNTER → 2016-12-25 | Outpatient (CLI) | payer OTHER | LOC: WOUNDCARE 10:02 | PROVIDERS: ATTEND Surgery | DX: L98.492 Non-pressure chronic ulcer of skin of other sites with fat layer exposed (principal); T81.31XA Disruption of external operation (surgical) wound, not elsewhere classified, initial encounter; C20 Malignant neoplasm of rectum; Z93.3 Colostomy status | CPT/HCPCS: 97605 ==

== ENCOUNTER → 2016-12-28 | Outpatient (CLI) | payer OTHER | LOC: WOUNDCARE 10:10 | PROVIDERS: ATTEND Surgery | DX: L98.492 Non-pressure chronic ulcer of skin of other sites with fat layer exposed (principal); T81.31XA Disruption of external operation (surgical) wound, not elsewhere classified, initial encounter; C20 Malignant neoplasm of rectum; Z93.3 Colostomy status | CPT/HCPCS: 11042; 97605 ==

== ENCOUNTER → 2016-12-30 | Outpatient (CLI) | payer OTHER | LOC: WOUNDCARE 10:08 | PROVIDERS: ATTEND Surgery | DX: Z48.01 Encounter for change or removal of surgical wound dressing (principal) | CPT/HCPCS: 97605 ==

== ENCOUNTER → 2017-01-01 | Outpatient (CLI) | payer OTHER | LOC: WOUNDCARE 10:08 | PROVIDERS: ATTEND Surgery | DX: L98.492 Non-pressure chronic ulcer of skin of other sites with fat layer exposed (principal); T81.31XA Disruption of external operation (surgical) wound, not elsewhere classified, initial encounter; C20 Malignant neoplasm of rectum; Z93.3 Colostomy status | CPT/HCPCS: 97605 ==

== ENCOUNTER → 2017-01-04 | Outpatient (CLI) | payer OTHER | LOC: WOUNDCARE 10:13 | PROVIDERS: ATTEND Surgery | DX: L98.492 Non-pressure chronic ulcer of skin of other sites with fat layer exposed (principal); T81.31XA Disruption of external operation (surgical) wound, not elsewhere classified, initial encounter; C20 Malignant neoplasm of rectum; Z93.3 Colostomy status | CPT/HCPCS: 11042; 87070; 87075; 87077; 87205 ==

== ENCOUNTER → 2017-01-11 | Outpatient (CLI) | payer OTHER | LOC: WOUNDCARE 10:47 | PROVIDERS: ATTEND Surgery | DX: L98.492 Non-pressure chronic ulcer of skin of other sites with fat layer exposed (principal); T81.31XA Disruption of external operation (surgical) wound, not elsewhere classified, initial encounter; C20 Malignant neoplasm of rectum; Z93.3 Colostomy status | CPT/HCPCS: 11042 ==

== ENCOUNTER → 2017-01-20 | Outpatient (CLI) | payer SELFPAY | LOC: WOUNDCARE 08:00 | PROVIDERS: ATTEND Surgery | DX: L92.8 Other granulomatous disorders of the skin and subcutaneous tissue (principal); L98.492 Non-pressure chronic ulcer of skin of other sites with fat layer exposed; T81.31XA Disruption of external operation (surgical) wound, not elsewhere classified, initial encounter; C20 Malignant neoplasm of rectum; Z93.3 Colostomy status | CPT/HCPCS: 17250 ==

== ENCOUNTER → 2017-01-27 | Outpatient (CLI) | payer SELFPAY | LOC: WOUNDCARE 08:02 | PROVIDERS: ATTEND Surgery | DX: L92.8 Other granulomatous disorders of the skin and subcutaneous tissue (principal); L98.491 Non-pressure chronic ulcer of skin of other sites limited to breakdown of skin; T81.31XA Disruption of external operation (surgical) wound, not elsewhere classified, initial encounter; C20 Malignant neoplasm of rectum; Z93.3 Colostomy status | CPT/HCPCS: 99212 ==

== ENCOUNTER → 2017-04-27 | Outpatient (RCR) | payer OTHER ==
[2017-01-29 10:37] LABS: BASOPHILS % (AUTO) 1 % (0-10); EOSINOPHILS # (AUTO) 0.3 10^3/uL (0.0-0.3); EOSINOPHILS % (AUTO) 8 % (0-10); HEMATOCRIT 35 % (40-54); HEMOGLOBIN 11.3 G/DL (13.3-17.7); LYMPHOCYTES # (AUTO) 0.7 X 10^3 (1.0-4.0); LYMPHOCYTES % (AUTO) 17 % (12-44); MEAN CORPUSCULAR HEMOGLOBIN 28 PG (25-34); MEAN CORPUSCULAR HGB CONC 33 G/DL (32-36); MEAN CORPUSCULAR VOLUME 86 FL (80-99); MEAN PLATELET VOLUME 10.8 FL (7.4-10.4); MONOCYTES # (AUTO) 0.4 X 10^3 (0.0-1.0); MONOCYTES % (AUTO) 10 % (0-12); NEUTROPHILS # (AUTO) 2.7 X 10^3 (1.8-7.8); NEUTROPHILS % (AUTO) 65 % (42-75); PLATELET COUNT 216 10^3/uL (130-400); RED BLOOD COUNT 4.03 10^6/uL (4.35-5.85); WHITE BLOOD COUNT 4.1 10^3/uL (4.3-11.0)
[2017-01-29 10:40] LABS: BILIRUBIN,URINE NEGATIVE (NEGATIVE); CLARITY,URINE CLEAR; COLOR,URINE YELLOW; GLUCOSE, URINE (UA) NEGATIVE (NEGATIVE); KETONES,URINE NEGATIVE (NEGATIVE); LEUKOCYTE ESTERASE ,URINE NEGATIVE (NEGATIVE); NITRITE,URINE NEGATIVE (NEGATIVE); PH,URINE 5 (5-9); PROTEIN,URINE NEGATIVE (NEGATIVE); UROBILINOGEN,URINE NORMAL (NORMAL)
[2017-01-29 10:54] LABS: BACTERIA,URINE NEGATIVE /HPF
[2017-01-29 10:55] LABS: ALBUMIN 3.5 GM/DL (3.2-4.5); BILIRUBIN,TOTAL 0.2 MG/DL (0.1-1.0); CALCIUM 8.6 MG/DL (8.5-10.1); CREATININE SERUM 1.29 MG/DL (0.60-1.30); POTASSIUM 4.5 MMOL/L (3.6-5.0); TOTAL PROTEIN 7.3 GM/DL (6.4-8.2)
[2017-04-13 09:23] LABS: BASOPHILS % (AUTO) 1 % (0-10); EOSINOPHILS # (AUTO) 0.2 10^3/uL (0.0-0.3); EOSINOPHILS % (AUTO) 3 % (0-10); HEMATOCRIT 37 % (40-54); HEMOGLOBIN 12.8 G/DL (13.3-17.7); LYMPHOCYTES # (AUTO) 0.9 X 10^3 (1.0-4.0); LYMPHOCYTES % (AUTO) 15 % (12-44); MEAN CORPUSCULAR HEMOGLOBIN 30 PG (25-34); MEAN CORPUSCULAR HGB CONC 35 G/DL (32-36); MEAN CORPUSCULAR VOLUME 86 FL (80-99); MONOCYTES # (AUTO) 0.5 X 10^3 (0.0-1.0); MONOCYTES % (AUTO) 9 % (0-12); NEUTROPHILS # (AUTO) 4.1 X 10^3 (1.8-7.8); NEUTROPHILS % (AUTO) 72 % (42-75); PLATELET COUNT 228 10^3/uL (130-400); RED BLOOD COUNT 4.26 10^6/uL (4.35-5.85); RED CELL DISTRIBUTION WIDTH 13.8 % (10.0-14.5); WHITE BLOOD COUNT 5.7 10^3/uL (4.3-11.0)
[2017-04-13 09:44] LABS: ALANINE AMINOTRANSFERASE 23 U/L (0-55); ALBUMIN 3.6 GM/DL (3.2-4.5); ALKALINE PHOSPHATASE 87 U/L (40-136); BILIRUBIN,TOTAL 0.3 MG/DL (0.1-1.0); BUN/CREATININE RATIO 9; CALCIUM 8.5 MG/DL (8.5-10.1); CARBON DIOXIDE 17 MMOL/L (21-32); CHLORIDE 110 MMOL/L (98-107); CREATININE SERUM 1.08 MG/DL (0.60-1.30); GFR ESTIMATED > 60; GLUCOSE 106 MG/DL (70-105); POTASSIUM 4.8 MMOL/L (3.6-5.0); SODIUM 136 MMOL/L (135-145); TOTAL PROTEIN 7.2 GM/DL (6.4-8.2)
[2017-04-20 13:43] LABS: BASOPHILS % (AUTO) 0 % (0-10); EOSINOPHILS # (AUTO) 0.6 10^3/uL (0.0-0.3); EOSINOPHILS % (AUTO) 9 % (0-10); HEMATOCRIT 38 % (40-54); HEMOGLOBIN 13.7 G/DL (13.3-17.7); LYMPHOCYTES % (AUTO) 14 % (12-44); MEAN CORPUSCULAR HEMOGLOBIN 30 PG (25-34); MEAN CORPUSCULAR HGB CONC 36 G/DL (32-36); MEAN CORPUSCULAR VOLUME 84 FL (80-99); MEAN PLATELET VOLUME 10.3 FL (7.4-10.4); MONOCYTES # (AUTO) 0.8 X 10^3 (0.0-1.0); MONOCYTES % (AUTO) 13 % (0-12); NEUTROPHILS # (AUTO) 4.3 X 10^3 (1.8-7.8); NEUTROPHILS % (AUTO) 64 % (42-75); PLATELET COUNT 225 10^3/uL (130-400); RED BLOOD COUNT 4.51 10^6/uL (4.35-5.85); RED CELL DISTRIBUTION WIDTH 13.2 % (10.0-14.5); WHITE BLOOD COUNT 6.6 10^3/uL (4.3-11.0)
[2017-04-20 14:02] LABS: CALCIUM 8.7 MG/DL (8.5-10.1); CREATININE SERUM 1.32 MG/DL (0.60-1.30); POTASSIUM 4.2 MMOL/L (3.6-5.0)
[~2017-04-27] VITALS: Ht 188 cm; Wt 109.3 kg
[~2017-04-27] MED LIST changes: +ACHD5005 PO; +D5W 500 ML IV (CANCER CTR) 500 ML IV SCH; +FOSAPREPITANT DIMEGLUMINE 150 MG in NS (IVPB) CANCER CENTER ONLY 150 ML IV SCH; -HYDR-3812 PO; +OXALIPLATIN 260 MG in D5W 250 ML IVPB (CANCER CTR) 250 ML IV SCH; +PALONOSETRON 0.25 MG, DEXAMETHASONE 10 MG/NS 50 ML IVPB IV PRN
[2017-04-27 15:37] LABS: BASOPHILS % (AUTO) 0 % (0-10); EOSINOPHILS # (AUTO) 0.3 10^3/uL (0.0-0.3); EOSINOPHILS % (AUTO) 6 % (0-10); HEMATOCRIT 37 % (40-54); HEMOGLOBIN 13.3 G/DL (13.3-17.7); LYMPHOCYTES % (AUTO) 20 % (12-44); MEAN CORPUSCULAR HEMOGLOBIN 31 PG (25-34); MEAN CORPUSCULAR HGB CONC 36 G/DL (32-36); MEAN CORPUSCULAR VOLUME 86 FL (80-99); MEAN PLATELET VOLUME 10.3 FL (7.4-10.4); MONOCYTES # (AUTO) 0.6 X 10^3 (0.0-1.0); MONOCYTES % (AUTO) 13 % (0-12); NEUTROPHILS % (AUTO) 62 % (42-75); PLATELET COUNT 193 10^3/uL (130-400); RED BLOOD COUNT 4.33 10^6/uL (4.35-5.85); RED CELL DISTRIBUTION WIDTH 13.4 % (10.0-14.5); WHITE BLOOD COUNT 4.9 10^3/uL (4.3-11.0)
[2017-04-27 15:55] LABS: CALCIUM 8.7 MG/DL (8.5-10.1); CREATININE SERUM 1.31 MG/DL (0.60-1.30); POTASSIUM 5.2 MMOL/L (3.6-5.0)
== END | disposition home or self-care (01) ==
LOC: ONC 01-27 08:35
PROVIDERS: ATTEND Internal Medicine Hematology & Oncology
DX: Z45.2 Encounter for adjustment and management of vascular access device (principal)
CPT/HCPCS: 36415; 36591; 80048; 80053; 81000; 82378; 85025; 96367; 96375; 96413; 96523; 99213

== ENCOUNTER 2017-07-06 10:07 | Outpatient (RCR) | payer SELFPAY ==
[2017-05-04 11:17] LABS: BASOPHILS % (AUTO) 0 % (0-10); EOSINOPHILS # (AUTO) 0.2 10^3/uL (0.0-0.3); EOSINOPHILS % (AUTO) 3 % (0-10); HEMATOCRIT 37 % (40-54); HEMOGLOBIN 13.2 G/DL (13.3-17.7); LYMPHOCYTES # (AUTO) 0.7 X 10^3 (1.0-4.0); LYMPHOCYTES % (AUTO) 14 % (12-44); MEAN CORPUSCULAR HEMOGLOBIN 31 PG (25-34); MEAN CORPUSCULAR HGB CONC 36 G/DL (32-36); MEAN CORPUSCULAR VOLUME 87 FL (80-99); MEAN PLATELET VOLUME 10.2 FL (7.4-10.4); MONOCYTES # (AUTO) 0.6 X 10^3 (0.0-1.0); MONOCYTES % (AUTO) 12 % (0-12); NEUTROPHILS # (AUTO) 3.5 X 10^3 (1.8-7.8); NEUTROPHILS % (AUTO) 71 % (42-75); PLATELET COUNT 169 10^3/uL (130-400); RED BLOOD COUNT 4.25 10^6/uL (4.35-5.85)
[2017-05-04 11:36] LABS: ALBUMIN 3.9 GM/DL (3.2-4.5); BILIRUBIN,TOTAL 0.6 MG/DL (0.1-1.0); CALCIUM 8.8 MG/DL (8.5-10.1); CREATININE SERUM 1.34 MG/DL (0.60-1.30); POTASSIUM 4.3 MMOL/L (3.6-5.0); TOTAL PROTEIN 7.4 GM/DL (6.4-8.2)
[2017-05-11 15:50] LABS: BASOPHILS % (AUTO) 0 % (0-10); EOSINOPHILS # (AUTO) 0.3 10^3/uL (0.0-0.3); EOSINOPHILS % (AUTO) 6 % (0-10); HEMATOCRIT 36 % (40-54); LYMPHOCYTES # (AUTO) 0.8 X 10^3 (1.0-4.0); LYMPHOCYTES % (AUTO) 18 % (12-44); MEAN CORPUSCULAR HEMOGLOBIN 31 PG (25-34); MEAN CORPUSCULAR HGB CONC 36 G/DL (32-36); MEAN CORPUSCULAR VOLUME 87 FL (80-99); MEAN PLATELET VOLUME 10.3 FL (7.4-10.4); MONOCYTES # (AUTO) 0.6 X 10^3 (0.0-1.0); MONOCYTES % (AUTO) 14 % (0-12); NEUTROPHILS # (AUTO) 2.7 X 10^3 (1.8-7.8); NEUTROPHILS % (AUTO) 62 % (42-75); PLATELET COUNT 132 10^3/uL (130-400); RED BLOOD COUNT 4.15 10^6/uL (4.35-5.85); RED CELL DISTRIBUTION WIDTH 14.7 % (10.0-14.5); WHITE BLOOD COUNT 4.4 10^3/uL (4.3-11.0)
[2017-05-11 16:09] LABS: CALCIUM 8.9 MG/DL (8.5-10.1); CREATININE SERUM 1.24 MG/DL (0.60-1.30); POTASSIUM 4.1 MMOL/L (3.6-5.0)
[2017-05-25 09:41] LABS: BASOPHILS % (AUTO) 0 % (0-10); EOSINOPHILS # (AUTO) 0.2 10^3/uL (0.0-0.3); EOSINOPHILS % (AUTO) 7 % (0-10); HEMATOCRIT 35 % (40-54); HEMOGLOBIN 12.3 G/DL (13.3-17.7); LYMPHOCYTES # (AUTO) 0.8 X 10^3 (1.0-4.0); LYMPHOCYTES % (AUTO) 27 % (12-44); MEAN CORPUSCULAR HEMOGLOBIN 32 PG (25-34); MEAN CORPUSCULAR HGB CONC 36 G/DL (32-36); MEAN CORPUSCULAR VOLUME 91 FL (80-99); MONOCYTES # (AUTO) 0.6 X 10^3 (0.0-1.0); MONOCYTES % (AUTO) 20 % (0-12); NEUTROPHILS # (AUTO) 1.3 X 10^3 (1.8-7.8); NEUTROPHILS % (AUTO) 46 % (42-75); PLATELET COUNT 163 10^3/uL (130-400); RED CELL DISTRIBUTION WIDTH 17.6 % (10.0-14.5); WHITE BLOOD COUNT 2.9 10^3/uL (4.3-11.0)
[2017-05-25 10:00] LABS: ALANINE AMINOTRANSFERASE 24 U/L (0-55); ALBUMIN 3.9 GM/DL (3.2-4.5); ALKALINE PHOSPHATASE 92 U/L (40-136); BILIRUBIN,TOTAL 0.7 MG/DL (0.1-1.0); BUN/CREATININE RATIO 10; CALCIUM 8.6 MG/DL (8.5-10.1); CARBON DIOXIDE 26 MMOL/L (21-32); CHLORIDE 104 MMOL/L (98-107); CREATININE SERUM 1.03 MG/DL (0.60-1.30); GFR ESTIMATED > 60; GLUCOSE 88 MG/DL (70-105); MAGNESIUM 1.9 MG/DL (1.8-2.4); SODIUM 136 MMOL/L (135-145); TOTAL PROTEIN 7.1 GM/DL (6.4-8.2)
[2017-06-08 10:51] LABS: BASOPHILS % (AUTO) 0 % (0-10); EOSINOPHILS # (AUTO) 0.2 10^3/uL (0.0-0.3); EOSINOPHILS % (AUTO) 3 % (0-10); HEMATOCRIT 35 % (40-54); HEMOGLOBIN 12.8 G/DL (13.3-17.7); LYMPHOCYTES # (AUTO) 0.9 X 10^3 (1.0-4.0); LYMPHOCYTES % (AUTO) 18 % (12-44); MEAN CORPUSCULAR HEMOGLOBIN 33 PG (25-34); MEAN CORPUSCULAR HGB CONC 36 G/DL (32-36); MEAN CORPUSCULAR VOLUME 91 FL (80-99); MEAN PLATELET VOLUME 10.7 FL (7.4-10.4); MONOCYTES # (AUTO) 0.8 X 10^3 (0.0-1.0); MONOCYTES % (AUTO) 15 % (0-12); NEUTROPHILS # (AUTO) 3.3 X 10^3 (1.8-7.8); NEUTROPHILS % (AUTO) 63 % (42-75); PLATELET COUNT 178 10^3/uL (130-400); RED BLOOD COUNT 3.89 10^6/uL (4.35-5.85); WHITE BLOOD COUNT 5.2 10^3/uL (4.3-11.0)
[2017-06-08 11:04] LABS: BUN/CREATININE RATIO 8; CALCIUM 8.7 MG/DL (8.5-10.1); CARBON DIOXIDE 24 MMOL/L (21-32); CHLORIDE 104 MMOL/L (98-107); CREATININE SERUM 1.21 MG/DL (0.60-1.30); GFR ESTIMATED > 60; GLUCOSE 94 MG/DL (70-105); POTASSIUM 4.6 MMOL/L (3.6-5.0); SODIUM 134 MMOL/L (135-145)
[2017-06-16 09:28] LABS: BASOPHILS % (AUTO) 0 % (0-10); EOSINOPHILS # (AUTO) 0.1 10^3/uL (0.0-0.3); EOSINOPHILS % (AUTO) 3 % (0-10); HEMATOCRIT 35 % (40-54); HEMOGLOBIN 12.3 G/DL (13.3-17.7); LYMPHOCYTES # (AUTO) 0.6 X 10^3 (1.0-4.0); LYMPHOCYTES % (AUTO) 17 % (12-44); MEAN CORPUSCULAR HEMOGLOBIN 34 PG (25-34); MEAN CORPUSCULAR HGB CONC 35 G/DL (32-36); MEAN CORPUSCULAR VOLUME 96 FL (80-99); MEAN PLATELET VOLUME 10.6 FL (7.4-10.4); MONOCYTES # (AUTO) 0.5 X 10^3 (0.0-1.0); MONOCYTES % (AUTO) 13 % (0-12); NEUTROPHILS # (AUTO) 2.5 X 10^3 (1.8-7.8); NEUTROPHILS % (AUTO) 68 % (42-75); PLATELET COUNT 145 10^3/uL (130-400); RED BLOOD COUNT 3.67 10^6/uL (4.35-5.85); RED CELL DISTRIBUTION WIDTH 18.5 % (10.0-14.5); WHITE BLOOD COUNT 3.7 10^3/uL (4.3-11.0)
[2017-06-16 09:49] LABS: ALANINE AMINOTRANSFERASE 26 U/L (0-55); ALBUMIN 3.7 GM/DL (3.2-4.5); ALKALINE PHOSPHATASE 82 U/L (40-136); BILIRUBIN,TOTAL 0.6 MG/DL (0.1-1.0); BUN/CREATININE RATIO 9; CALCIUM 8.6 MG/DL (8.5-10.1); CARBON DIOXIDE 22 MMOL/L (21-32); CHLORIDE 107 MMOL/L (98-107); CREATININE SERUM 1.11 MG/DL (0.60-1.30); GFR ESTIMATED > 60; GLUCOSE 107 MG/DL (70-105); MAGNESIUM 1.7 MG/DL (1.8-2.4); POTASSIUM 4.3 MMOL/L (3.6-5.0); SODIUM 136 MMOL/L (135-145); TOTAL PROTEIN 6.7 GM/DL (6.4-8.2)
[~2017-07-06] VITALS: Ht 188 cm; Wt 108.4 kg
[~2017-07-06 10:07] MED LIST changes: +D5W IV SCH; +FOSAPREPITANT DIMEGLUMINE 150 MG in NS (IVPB) CANCER CENTER ONLY 150 ML IV PRN; +OXALIPLATIN IV SCH; +PALONOSETRON HCL 0.25 MG, DEXAMETHASONE PF INJ (CANCER C 10 MG in NS (IVPB) CANCER CENT... IV PRN
[2017-07-06 10:39] LABS: BASOPHILS % (AUTO) 0 % (0-10); EOSINOPHILS # (AUTO) 0.2 10^3/uL (0.0-0.3); EOSINOPHILS % (AUTO) 5 % (0-10); HEMATOCRIT 33 % (40-54); HEMOGLOBIN 11.7 G/DL (13.3-17.7); LYMPHOCYTES # (AUTO) 0.7 X 10^3 (1.0-4.0); LYMPHOCYTES % (AUTO) 21 % (12-44); MEAN CORPUSCULAR HEMOGLOBIN 35 PG (25-34); MEAN CORPUSCULAR HGB CONC 36 G/DL (32-36); MEAN CORPUSCULAR VOLUME 99 FL (80-99); MEAN PLATELET VOLUME 10.3 FL (7.4-10.4); MONOCYTES # (AUTO) 0.5 X 10^3 (0.0-1.0); MONOCYTES % (AUTO) 16 % (0-12); NEUTROPHILS # (AUTO) 1.9 X 10^3 (1.8-7.8); NEUTROPHILS % (AUTO) 59 % (42-75); PLATELET COUNT 124 10^3/uL (130-400); RED BLOOD COUNT 3.33 10^6/uL (4.35-5.85); RED CELL DISTRIBUTION WIDTH 18.3 % (10.0-14.5); WHITE BLOOD COUNT 3.2 10^3/uL (4.3-11.0)
[2017-07-06 11:09] LABS: ALANINE AMINOTRANSFERASE 24 U/L (0-55); ALBUMIN 3.8 GM/DL (3.2-4.5); ALKALINE PHOSPHATASE 96 U/L (40-136); BILIRUBIN,TOTAL 0.6 MG/DL (0.1-1.0); BUN/CREATININE RATIO 13; CALCIUM 8.3 MG/DL (8.5-10.1); CARBON DIOXIDE 23 MMOL/L (21-32); CHLORIDE 109 MMOL/L (98-107); CREATININE SERUM 0.98 MG/DL (0.60-1.30); GFR ESTIMATED > 60; GLUCOSE 105 MG/DL (70-105); POTASSIUM 4.3 MMOL/L (3.6-5.0); SODIUM 136 MMOL/L (135-145); TOTAL PROTEIN 6.9 GM/DL (6.4-8.2)
== END 2017-08-02 | disposition home or self-care (01) ==
LOC: ONC 10:07
PROVIDERS: ATTEND Internal Medicine Hematology & Oncology
DX: Z51.11 Encounter for antineoplastic chemotherapy (principal); C20 Malignant neoplasm of rectum
CPT/HCPCS: 36415; 36591; 80048; 80053; 82378; 83735; 85025; 96367; 96375; 96413; 96415

== ENCOUNTER 2017-07-13 05:37 | Outpatient (CLI) | payer SELFPAY ==
[~2017-07-13] VITALS: Ht 185.4 cm; Wt 106.6 kg
[~2017-07-13 05:37] MED LIST changes: -D5W 500 ML IV (CANCER CTR) 500 ML IV SCH; -D5W IV SCH; -FOSAPREPITANT DIMEGLUMINE 150 MG in NS (IVPB) CANCER CENTER ONLY 150 ML IV PRN; -FOSAPREPITANT DIMEGLUMINE 150 MG in NS (IVPB) CANCER CENTER ONLY 150 ML IV SCH; -OXALIPLATIN 260 MG in D5W 250 ML IVPB (CANCER CTR) 250 ML IV SCH; -OXALIPLATIN IV SCH; -PALONOSETRON 0.25 MG, DEXAMETHASONE 10 MG/NS 50 ML IVPB IV PRN; -PALONOSETRON HCL 0.25 MG, DEXAMETHASONE PF INJ (CANCER C 10 MG in NS (IVPB) CANCER CENT... IV PRN
[2017-08-13] MEDS ORDERED: ACHD5005 PO (10:44)
[2017-08-13] MEDS ORDERED: DOCU-143 PO (10:44)
== END 2017-07-13 10:57 ==
LOC: PREOP 05:37
PROVIDERS: ATTEND Surgery
DX: Z01.818 Encounter for other preprocedural examination (principal); Z85.040 Personal history of malignant carcinoid tumor of rectum

== ENCOUNTER 2017-08-10 05:49 | Outpatient (CLI) | payer SELFPAY ==
[~2017-08-10] VITALS: Ht 185.4 cm; Wt 106.6 kg
[2017-08-13] MEDS ORDERED: ACHD5005 PO (10:44)
[2017-08-13] MEDS ORDERED: DOCU-143 PO (10:44)
== END 2017-08-10 10:37 ==
LOC: PREOP 05:49
PROVIDERS: ATTEND Surgery
DX: Z01.818 Encounter for other preprocedural examination (principal)

== ENCOUNTER 2017-08-12 07:35 | Inpatient (IN) | payer SELFPAY ==
[~2017-08-12] VITALS: Ht 185.4 cm; Wt 106.6 kg
--- OUTSIDE RECORDS SUMMARY | 2017-08-12 07:40 | XMS REPORT ---
Author Author ALLYN CAICEDO Organization [facility] Address [address] [place] [address] Care Team Providers Care Industrial Millwright Name Role Phone ALLYN CAICEDO Unavailable PROBLEMS Type Condition ICD9-CM Code UIH70-LX Code Onset Dates Condition Status SNOMED Code Problem Adenocarcinoma of colon C18.9 Active 396547199 Problem Hypothyroidism (acquired) E03.9 Active [id number] ALLERGIES No Information ENCOUNTERS Encounter Location Date Diagnosis [facility] [address] [facility] [id number] [place] [address] Nov, Encounter for wound care Z51.[address] [id number] [place] [id number] July, [address] [id number] [place] [id number] July, Adenocarcinoma of colon C18.[address] [id number] [place] [id number] July, [address] [id number] [place] [id number] July, [address] [id number] [place] [id number] July, Ileus K56.7 and Hypothyroidism (acquired) E03.9 IMMUNIZATIONS No Known Immunizations SOCIAL HISTORY Never Assessed REASON FOR VISIT Other PLAN OF CARE VITAL SIGNS MEDICATIONS Unknown Medications RESULTS No Results PROCEDURES No Known procedures INSTRUCTIONS MEDICATIONS ADMINISTERED No Known Medications MEDICAL (GENERAL) HISTORY Type Description Date Surgical History arthroscopic surgery bilateral knees Surgical History tonsillectomy as a child Hospitalization History surgery (s) only
--- OUTSIDE RECORDS SUMMARY | 2017-08-12 07:41 | XMS REPORT | Continuity of Care Document ---
Author Author [facility] Organization [facility] Address Unknown Phone Unavailable Allergies Active Description Code Type Severity Reaction Onset Reported/Identified Relationship to Patient Clinical Status Yes No Known Medication Allergies Drug N/A N/A Medications There is no data. Problems There is no data. Procedures There is no data. Results There is no data. Encounters ACCT No. Visit Date/Time Discharge Status Pt. Type Provider Facility Loc./Unit Complaint [id number] 03/31/2016 10:48:00 03/31/2016 14:02:00 DIS Emergency JAVIER MARTINEZ [facility] ED l ear laceration [id number] 04/05/2016 05:11:05 ACT Document Registration [id number] 05/06/2017 08:25:01 ACT Unknown
[2017-08-12 08:00] VITALS: BP 127/78
--- NOTE | 2017-08-12 08:07 | Progress Note-Pre Operative ---
Pre-Operative Progress Note H&P Reviewed The H&P was reviewed, patient examined and no changes noted. Date Seen by Provider: August 12, 2017 Time Seen by Provider: 08:07 Date H&P Reviewed: August 12, 2017 Time H&P Reviewed: 08:07 Pre-Operative Diagnosis: history rectal cancer ANGELICA BRITTON DO August 12, 2017 08:07
[2017-08-12] MEDS ORDERED: LIDOCAINE 1% INJ 20 ML 20 ML VIAL ONE (08:24)
[2017-08-12] MEDS ORDERED: BUPIVACAINE 0.5% 30 ML (SENSORCAINE) VIAL ONE (08:24)
[2017-08-12] MEDS ORDERED: LACTATED RINGERS 1,000 ML IV PRN (08:28)
[2017-08-12] MEDS ORDERED: ceFAZolin 2 GM IV Premixed 50 ML ONE (08:29)
[2017-08-12] MEDS ORDERED: metroNIDAZOLE 500MG/100ML IVPB 100 ML ONE (08:29)
[2017-08-12] MEDS ORDERED: ceFAZolin 2 GM IV Premixed 50 ML IV ONE (08:30)
[2017-08-12] MEDS ORDERED: metroNIDAZOLE 500MG/100ML IVPB 100 ML IV ONE (08:30)
[2017-08-12 08:37] LABS: BASOPHILS % (AUTO) 0 % (0-10); EOSINOPHILS # (AUTO) 0.2 10^3/uL (0.0-0.3); EOSINOPHILS % (AUTO) 5 % (0-10); HEMATOCRIT 36 % (40-54); HEMOGLOBIN 12.8 G/DL (13.3-17.7); LYMPHOCYTES # (AUTO) 0.6 X 10^3 (1.0-4.0); LYMPHOCYTES % (AUTO) 17 % (12-44); MEAN CORPUSCULAR HEMOGLOBIN 34 PG (25-34); MEAN CORPUSCULAR HGB CONC 35 G/DL (32-36); MEAN CORPUSCULAR VOLUME 97 FL (80-99); MEAN PLATELET VOLUME 11.2 FL (7.4-10.4); MONOCYTES # (AUTO) 0.5 X 10^3 (0.0-1.0); MONOCYTES % (AUTO) 14 % (0-12); NEUTROPHILS # (AUTO) 2.3 X 10^3 (1.8-7.8); NEUTROPHILS % (AUTO) 63 % (42-75); PLATELET COUNT 178 10^3/uL (130-400); RED BLOOD COUNT 3.74 10^6/uL (4.35-5.85); RED CELL DISTRIBUTION WIDTH 12.3 % (10.0-14.5); WHITE BLOOD COUNT 3.7 10^3/uL (4.3-11.0)
[2017-08-12] MEDS ORDERED: proPOfol 200 MG/20 ML (DIPRIVAN) VIAL IV ONE (08:40)
[2017-08-12] MEDS ORDERED: MIDAZOLAM 2 MG/2 ML (VERSED) VIAL ONE (08:40)
[2017-08-12] MEDS ORDERED: ROCURONIUM 10 MG/ML 5 ML SYRINGE IV ONE (08:40)
[2017-08-12] MEDS ORDERED: fentaNYL INJECTION 100 MCG/2 ML AMP ONE ×2 (08:40→10:09)
[2017-08-12] MEDS ORDERED: SEVOFLURANE (ULTANE) 15 ML INHAL SOLN ONE ×3 (08:40→10:27)
[2017-08-12] MEDS ORDERED: LIDOCAINE PF 2% 5 ML (XYLOCAINE) VIAL ONE (08:40)
[2017-08-12] MEDS ORDERED: ONDANSETRON 4 MG/2 ML (SDV) Z0FRAN ONE (08:41)
[2017-08-12] MEDS ORDERED: DEXAMETHASONE 10 MG/ML (DECADRON) 1 ML VIAL ONE (08:41)
[2017-08-12] MEDS ORDERED: NEOSTIGMINE 1 MG/ML 5 ML SYRINGE ONE (10:24)
[2017-08-12] MEDS ORDERED: GLYCOPYRROLATE 0.2 MG/ML (ROBINUL) 2 ML VIAL ONE (10:24)
[2017-08-12] MEDS: LACTATED RINGERS 1,000 ML IV SCH ×2 (10:30→14:50)
--- NOTE | 2017-08-12 10:38 | Progress Note-Post Operative ---
Post-Operative Progess Note Surgeon (s)/Technical Support 1 Software Engineer (s) Surgeon ANGELICA BRITTON DO Technical Support 1 Software Engineer: Dr. Sofia Pre-Operative Diagnosis history rectal cancer Post-Operative Diagnosis same Procedure & Operative Findings Date of Procedure 08/12/17 Procedure Performed/Findings loop ileostomy reversal Anesthesia Type general Estimated Blood Loss Estimated blood loss (mL): minimal Specimens/Packing Specimens Removed na ANGELICA BRITTON DO August 12, 2017 10:38
[2017-08-12] MEDS ORDERED: HYDROmorphone 1 MG/ML (DILAUDID) 1 ML SYRINGE ONE (10:43)
[2017-08-12] MEDS ORDERED: ONDANSETRON 4 MG/2 ML (SDV) Z0FRAN IVP PRN ×2 (10:45→11:00)
[2017-08-12] MEDS: HYDROmorphone 1 MG/ML (DILAUDID) 1 ML SYRINGE IV PRN ×2 (10:52→11:02)
[2017-08-12] MEDS ORDERED: morphine INJ 10 MG/ML 1ML (SYR OR VIAL) ONE (11:10)
[2017-08-12] MEDS: morphine INJ 10 MG/ML 1ML (SYR OR VIAL) IVP PRN ×6 (11:16→20:52)
--- NOTE | 2017-08-12 13:30 | Anesthesia-General Post-Op ---
General Patient Condition Mental Status/LOC: Same as Preop Cardiovascular: Satisfactory Nausea/Vomiting: Absent Respiratory: Satisfactory Pain: Controlled Complications: Absent Post Op Complications Complications None Follow Up Care/Instructions Patient Instructions None needed. Anesthesia/Patient Condition Patient Condition Patient is doing well, no complaints, stable vital signs, no apparent adverse anesthesia problems. No complications reported per nursing. RILEY SIMMS CRNA August 12, 2017 13:30
[2017-08-12] MEDS ORDERED: HYDROcodone/APAP 5 MG/325 MG (LORTAB) TAB ONE (13:38)
[2017-08-12] MEDS: HYDROcodone/APAP 5 MG/325 MG (LORTAB) TAB PO PRN (13:43)
[2017-08-12] MEDS: metroNIDAZOLE 500MG/100ML IVPB 100 ML IV SCH (16:06)
[2017-08-12 16:45] VITALS: BP 123/65
[2017-08-12] MEDS: ceFAZolin 2 GM IV Premixed 50 ML IV SCH (16:48)
[2017-08-12 19:47] VITALS: BP 119/67
[2017-08-13 00:01] VITALS: BP 112/66
[2017-08-13] MEDS: morphine INJ 10 MG/ML 1ML (SYR OR VIAL) IVP PRN ×2 (00:02→05:53)
[2017-08-13] MEDS: LACTATED RINGERS 1,000 ML IV SCH ×3 (00:02→19:33)
[2017-08-13] MEDS: ceFAZolin 2 GM IV Premixed 50 ML IV SCH (00:20)
[2017-08-13] MEDS: metroNIDAZOLE 500MG/100ML IVPB 100 ML IV SCH (00:57)
[2017-08-13] MEDS: HYDROcodone/APAP 5 MG/325 MG (LORTAB) TAB PO PRN ×6 (02:59→23:56)
[2017-08-13 04:14] VITALS: BP 119/69
[2017-08-13 08:00] VITALS: BP 131/69
[2017-08-13] MEDS ORDERED: PANTOPRAZOLE 40 MG/10 ML (PROTONIX) VIAL IVP SCH (09:00)
[2017-08-13] MEDS ORDERED: ACHD5005 PO (10:44)
[2017-08-13] MEDS ORDERED: DOCU-143 PO (10:44)
--- NOTE | 2017-08-13 10:49 | Discharge Inst-Simple/Standard ---
Discharge Inst-Standard Discharge Medications New, Converted or Re-Newed RX: RX on Chart Patient Instructions/Follow Up Plan of Care/Instructions/FU: 1 week Kori Activity as Tolerated: No Discharge Diet: Soft Diet Other Inst to Patient Follow up Appt: Make appointment for 1 week. Instructions: No lifting greater than 10 pounds. No strenuous activity. May shower in 24 hours, no tub bath or soaking. Use incentive spirometer at home as directed. No Smoking Skin/Wound Care: Keep incision clean and dry. Change bandages at least daily. Symptoms to Report: Appetite Changes, Extremity Discoloration, Numbness/Tingling, Swelling Increased , Bleeding Excessive, Eyesight Changes, Pain Increased, Urine Color Change, Constipation(Persistent), Fever over 101 degree F, Pain/Pressure in chest, Urinating Difficulty, Cough Up/Vomit Blood, Heart Beat Irreg/Pounding, Pain/ Pressure in jaw, Vaginal Bleeding Increase, Cramps in feet or legs, Lightheadedness, Pain/Pressure in shoulder, Diarrhea(Persistent), Memory Changes Suddenly, Questions/Concerns, Weight gain consecutive days, Dizziness/ Fainting, Nausea/Vomiting, Shortness of Breath, Weight gain over 2 pounds If questions or concerns contact your physician Or seek help at emergency department. ANGELICA BRITTON DO August 13, 2017 10:49
--- NOTE | 2017-08-13 10:54 | Progress Note ---
Subjective Date Seen by Provider: August 13, 2017 Time Seen by Provider: 10:52 Subjective/Events-last exam Doing well no complaints. Patient tolerating liquids. His pain is controlled. He feels a little bit distended. Not having any flatus or bowel movement. Some drainage from wound is serous sanguinous. Denies any nausea vomiting fever sweats chills shortness of breath or chest pain. Objective Exam Vital Signs Date Time Temp Pulse Resp B/P (MAP) Pulse Ox O2 Delivery O2 Flow Rate FiO2 08/13/17 08:30 Room Air 08/13/17 08:00 97.9 70 20 131/69 (89) 99 Room Air 08/13/17 04:14 98.0 80 16 119/69 (86) 96 Room Air 08/13/17 00:01 98.5 76 16 112/66 (81) 97 Room Air 08/12/17 19:47 97.5 93 16 119/67 (84) 95 Room Air 08/12/17 16:45 97.7 73 16 123/65 (84) 96 Room Air 08/12/17 14:42 Room Air I & O 08/13/17 07:00 Intake Total 4690 ml Output Total 1655 ml Balance 3035 ml Capillary Refill : General Appearance: No Apparent Distress HEENT: PERRL/EOMI Neck: Normal Inspection, Non Tender Respiratory: No Accessory Muscle Use, No Respiratory Distress Cardiovascular: Regular Rate, Rhythm Gastrointestinal: soft (Minimal distention incisional tenderness, serosanguineous drainage on bandage. No signs of infection.) Extremity: Normal Inspection Neurologic/Psychiatric: Alert, Oriented x3, No Motor/Sensory Deficits, Normal Mood/Affect Skin: Normal Color, Warm/Dry Assessment/Plan Assessment/Plan Assessment/Plan Status post loop ileostomy reversal. Patient doing well. His pain is controlled. He is tolerating liquids. Await bowel function. Once bowel function obtained can DC home. Clinical Quality Measures DVT/VTE Risk/Contraindication: Risk Factor Score Per Nursin RFS Level Per Nursing on Admit: 4+=Very High ANGLEICA BRITTON DO August 13, 2017 10:54
[2017-08-13 12:00] VITALS: BP 135/64
[2017-08-13 15:35] VITALS: BP 137/80
--- NOTE | 2017-08-13 21:23 | OPERATIVE REPORT ---
DATE OF SERVICE: 08/12/2017 PREOPERATIVE DIAGNOSIS: History of rectal cancer. POSTOPERATIVE DIAGNOSIS: History of rectal cancer. PROCEDURE: Loop ileostomy reversal. SURGEON: Angelica Sheikh DO. PROSTHETIC MAKEUP DESIGNER: Dr. Sofia, assisted in retraction, dissection and closure. ANESTHESIA: General. ESTIMATED BLOOD LOSS: Minimal. COMPLICATIONS: None. INDICATIONS: The patient is a 61-year-old male with history of rectal cancer with low anterior resection and diverting loop ileostomy. He wishes to have loop ileostomy reversal at this time. He has had a recent colonoscopy which did not demonstrate any pathology present at this time. He was explained risks and benefits of procedure and wished to proceed with procedure. Consent was signed on chart. DESCRIPTION OF PROCEDURE: The patient was taken to the operating suite, was prepped and draped in sterile fashion. Surgical pause was performed. An elliptical incision was made around the ostomy and careful dissection was taken down, mobilizing the loop all the way down to the fascia. This was able to be freed circumferentially and then the small bowel brought up through the ostomy site. Using a HUBER blue stapler 75 down each limb and was fired. A crotch stitch was placed with a 3-0 Vicryl. A HUBER 75 reload was then used to amputate the skin and opening of the loop recreating in a side to side anastomosis fashion. This was then able to be placed back within the abdomen without any difficulty. The subcutaneous scar tissue of the ostomy sack defect was then dissected and removed. The fascia was then closed using 1-0 looped PDS. The wound was then irrigated with copious amounts of irrigation and suctioned. A Hyrum drain was placed in through the defect and the skin was then loosely approximated with jose. The patient tolerated the procedure well without any complications and taken to recovery room in stable condition. Job ID: [id number] DocumentID: [id number] Dictated Date: 08/13/2017 11:49:54 Sugar Mill Worker Date: 08/13/2017 21:23:21 Dictated By: ANGELICA SHEIKH DO [facility]ITAL[facility]icel
[2017-08-14 00:22] VITALS: BP 146/76
[2017-08-14] MEDS: LACTATED RINGERS 1,000 ML IV SCH ×3 (04:50→20:54)
[2017-08-14] MEDS: HYDROcodone/APAP 5 MG/325 MG (LORTAB) TAB PO PRN (04:50)
[2017-08-14] MEDS: PANTOPRAZOLE 40 MG (PROTONIX) TAB PO SCH (06:25)
[2017-08-14 08:43] VITALS: BP 146/81
[2017-08-14] MEDS: morphine INJ 10 MG/ML 1ML (SYR OR VIAL) IVP PRN ×4 (08:46→20:55)
--- NOTE | 2017-08-14 10:10 | Diagnostic Imaging Report ---
Clinical indication: Patient with abdominal pain and distention. Patient had a reverse colostomy 2 days ago. Exam: X-ray abdomen supine and upright views. Comparison: None. Findings: There are multiple dilated loops of small bowel with air-fluid levels seen. There is also air dilated loop of suspected colon overlying the right lower abdominal region with air-fluid level. There is no significant air in the rectal region. There is Aurora drain overlying the right abdomen. Skin jose are seen overlying the right abdomen. There is no significant intra-abdominal free air. Mild right basilar atelectasis is seen. There appear to be surgical sutures overlying the pelvis region. There are degenerative spurs involving the spine. Impression: 1.: There are multiple dilated loops of small bowel with air-fluid levels and there is also air dilated area overlying the right abdomen suspected to represent colon with air-fluid level. There is no air within the rectum. These findings are concerning for intestinal obstruction. CT scan of the abdomen and pelvis would better evaluate. 2: Postop changes to the abdomen. Dictated by: Dictated on workstation # [id number]
[2017-08-14 11:21] LABS: HEMOGLOBIN 12.6 G/DL (13.3-17.7); MEAN PLATELET VOLUME 10.7 FL (7.4-10.4); RED BLOOD COUNT 3.7 10^6/uL (4.35-5.85); WHITE BLOOD COUNT 7.1 10^3/uL (4.3-11.0)
--- NOTE | 2017-08-14 11:36 | Progress Note (SOAP) ---
Subjective Date Seen by Provider: August 14, 2017 Time Seen by Provider: 10:50 Subjective/Events-last exam Patient seen with Dr. Todd. Patient reports abdominal pain and that morphine is the only think touching his pain right now. Reports some nausea but no vomiting. Tolerating liquids. Not passing gas at this point. No fever/chills. Objective Exam Vital Signs Date Time Temp Pulse Resp B/P (MAP) Pulse Ox O2 Delivery O2 Flow Rate FiO2 08/14/17 08:43 99.3 89 20 146/81 (102) 96 Room Air 08/14/17 04:50 98.7 08/14/17 00:22 99.5 73 18 146/76 (99) 96 Room Air 08/13/17 19:54 Room Air 08/13/17 15:35 98.3 73 18 137/80 (99) 98 Room Air 08/13/17 12:00 98.1 64 20 135/64 (87) 98 Room Air I & O 08/14/17 06:59 Intake Total 5760 ml Output Total 3075 ml Balance 2685 ml Capillary Refill : General Appearance: No Apparent Distress, WD/WN HEENT: PERRL/EOMI Neck: Full Range of Motion, Normal Inspection, Non Tender, Supple Respiratory: Chest Non Tender, Lungs Clear, Normal Breath Sounds, No Accessory Muscle Use, No Respiratory Distress Cardiovascular: Regular Rate, Rhythm, No Edema Gastrointestinal: normal bowel sounds, soft (Minimally distended), tenderness Extremity: Normal Capillary Refill, Normal Inspection, Normal Range of Motion, Non Tender, No Calf Tenderness, No Pedal Edema Neurologic/Psychiatric: Alert, Oriented x3 Skin: Normal Color, Warm/Dry, Other (Right side abdominal dressing in place. C/ D/I.) Results Lab Laboratory Tests 08/14/17 11:20: White Blood Count 7.1, Red Blood Count 3.70L, Hemoglobin 12.6L, Hematocrit 36L, Mean Corpuscular Volume 96, Mean Corpuscular Hemoglobin 34, Mean Corpuscular Hemoglobin Concent 35, Red Cell Distribution Width 12.0, Platelet Count 182, Mean Platelet Volume 10.7H Microbiology 08/12/17 MRSA Screen - Final, Complete MRSA not isolated Assessment/Plan Assessment/Plan Assess & Plan/Chief Complaint Status post loop ileostomy reversal. Abdominal x-ray this am showed air/fluid levels. CBC unremarkable. Pain controlled with morphine and will continue at this time. Continue clear liquids and await bowel function. Encourage ambulation. When patient has bowel function, Will DC home. Clinical Quality Measures DVT/VTE Risk/Contraindication: Risk Factor Score Per Nursin RFS Level Per Nursing on Admit: 4+=Very High GETACHEW MEDEROS APRN August 14, 2017 11:36 am
--- NOTE | 2017-08-14 11:43 | Progress Note-Standard ---
Standard Progress Note Progress Notes/Assess & Plan Date Seen by Provider: August 14, 2017 Time Seen by Provider: 11:00 Progress/Assessment & Plan patient seen and agree with evaluation. s/p reversal loop ileostomy POD#2, hx rectal ca s/p neoadjuvant chemoradiation and LAR 11/12. AXR flat and upright consistent with ileus. will encourage more ambulation. NPO for now until has flatus and abdominal decompression. then clear liquids. labs WNL. CHRISTOPHER DAVIS MD August 14, 2017 11:43
[2017-08-14 11:47] LABS: ALANINE AMINOTRANSFERASE 18 U/L (0-55); ALBUMIN 3.4 GM/DL (3.2-4.5); ALKALINE PHOSPHATASE 66 U/L (40-136); BILIRUBIN,TOTAL 0.4 MG/DL (0.1-1.0); BUN/CREATININE RATIO 13; CALCIUM 8.3 MG/DL (8.5-10.1); CARBON DIOXIDE 23 MMOL/L (21-32); CHLORIDE 106 MMOL/L (98-107); CREATININE SERUM 0.88 MG/DL (0.60-1.30); GFR ESTIMATED > 60; GLUCOSE 104 MG/DL (70-105); POTASSIUM 4.1 MMOL/L (3.6-5.0); SODIUM 138 MMOL/L (135-145); TOTAL PROTEIN 6.3 GM/DL (6.4-8.2)
[2017-08-14] MEDS ORDERED: LORazepam INJ 2 MG/ML (ATIVAN) VIAL IVP PRN (12:00)
[2017-08-14] MEDS ORDERED: NITROGLYCERIN 0.4 MG SL TABS BTL 25'S SL PRN (12:15)
[2017-08-14] MEDS ORDERED: morphine INJ 4 MG/ML 1 ML (VIAL/SYRINGE) IV PRN (12:15)
[2017-08-14 16:44] VITALS: BP 156/88
[2017-08-15 00:10] VITALS: BP 134/80
[2017-08-15] MEDS: morphine INJ 10 MG/ML 1ML (SYR OR VIAL) IVP PRN ×2 (01:03→08:01)
[2017-08-15] MEDS: LACTATED RINGERS 1,000 ML IV SCH (04:51)
[2017-08-15] MEDS: PANTOPRAZOLE 40 MG (PROTONIX) TAB PO SCH (05:26)
[2017-08-15 08:20] VITALS: BP 149/84
--- NOTE | 2017-08-15 10:04 | Progress Note (SOAP) ---
Subjective Date Seen by Provider: August 15, 2017 Time Seen by Provider: 09:45 Subjective/Events-last exam Patient seen with Dr. Todd. Patient reports doing much better. Starting passing gas early this am and his abdominal pain started improving. He reports now that he has minimal pain and just more tenderness/discomfort. Reports mild nausea but vomiting. No BM yet. No fever/chills. Ambulating well. Objective Exam Vital Signs Date Time Temp Pulse Resp B/P (MAP) Pulse Ox O2 Delivery O2 Flow Rate FiO2 08/15/17 08:20 98.9 80 18 149/84 (105) 97 Room Air 08/15/17 08:00 Room Air 08/15/17 00:10 98.3 89 16 134/80 (98) 96 Room Air 08/14/17 20:54 Room Air 08/14/17 16:44 98.2 88 16 156/88 (110) 96 Room Air I & O 08/15/17 07:00 Intake Total 2005 ml Output Total 475 ml Balance 1530 ml Capillary Refill : Less Than 3 Seconds General Appearance: No Apparent Distress, WD/WN HEENT: PERRL/EOMI Neck: Full Range of Motion, Normal Inspection, Non Tender, Supple Respiratory: Chest Non Tender, Lungs Clear, Normal Breath Sounds, No Accessory Muscle Use, No Respiratory Distress Cardiovascular: Regular Rate, Rhythm, No Edema Gastrointestinal: normal bowel sounds, soft, tenderness Extremity: Normal Capillary Refill, Normal Inspection, Normal Range of Motion, Non Tender, No Calf Tenderness, No Pedal Edema Neurologic/Psychiatric: Alert, Oriented x3, Other (Right side abdominal incision with ricardo drains in place. Telford in place. Incision no redness, erythema. minimal SS drainage from ricardo drains.) Skin: Normal Color, Warm/Dry Results Lab Laboratory Tests 08/14/17 11:20: White Blood Count 7.1, Red Blood Count 3.70L, Hemoglobin 12.6L, Hematocrit 36L, Mean Corpuscular Volume 96, Mean Corpuscular Hemoglobin 34, Mean Corpuscular Hemoglobin Concent 35, Red Cell Distribution Width 12.0, Platelet Count 182, Mean Platelet Volume 10.7H, Sodium Level 138, Potassium Level 4.1, Chloride Level 106, Carbon Dioxide Level 23, Anion Gap 9, Blood Urea Nitrogen 11, Creatinine 0.88, Estimat Glomerular Filtration Rate > 60, BUN/Creatinine Ratio 13, Glucose Level 104, Calcium Level 8.3L, Total Bilirubin 0.4, Aspartate Amino Transf (AST/SGOT) 16, Alanine Aminotransferase (ALT/SGPT) 18, Alkaline Phosphatase 66, Total Protein 6.3L, Albumin 3.4 Microbiology 08/12/17 MRSA Screen - Final, Complete MRSA not isolated Assessment/Plan Assessment/Plan Assess & Plan/Chief Complaint Status post loop ileostomy reversal. VSS Patient reports that pain is much better this am. Passing gas. Encourage ambulation. Will start dys3 diet and if patient tolerates diet he can be DC'd home. Follow up with Dr. Sheikh in 1 week. Clinical Quality Measures DVT/VTE Risk/Contraindication: Risk Factor Score Per Nursin RFS Level Per Nursing on Admit: 4+=Very High GETACHEW MEDEROS LINES TENDER August 15, 2017 10:04
--- NOTE | 2017-09-01 03:34 | DISCHARGE SUMMARY ---
DATE OF SERVICE: ADMISSION DIAGNOSIS: History of rectal cancer with loop ileostomy. DISCHARGE DIAGNOSES: History of rectal cancer with loop ileostomy and status post loop ileostomy reversal and postoperative ileus. ADMITTING PHYSICIAN: Angelica Sheikh DO HOSPITAL COURSE: The patient is a 61-year-old male with history of rectal cancer. He had diverting loop ileostomy. He on 08/12/2017 underwent loop ileostomy reversal. He then progressively doing well. He developed a postoperative ileus, which then resolved and his diet was advanced and the patient was able to be discharged on 08/15/2017. The patient was set up for outpatient followup. See discharge paperwork in the computer for further details. Job ID: [id number] DocumentID: [id number] Dictated Date: 08/31/2017 16:40:44 Cutter Hot Knife Date: 09/01/2017 03:33:36 Dictated By: ANGELICA SHEIKH DO
== END 2017-08-15 12:00 | disposition home or self-care (01) | DRG 330 ==
LOC: 4TH 07:35 → SURG 07:36 → 4TH 11:35
PROVIDERS: ADMIT Surgery; ATTEND Surgery
PROC: 0DBB0ZZ Excision of Ileum, Open Approach (ICD-10-PCS; principal; 2017-08-12 09:15)
DX: Z43.2 Encounter for attention to ileostomy (principal); C20 Malignant neoplasm of rectum; E66.9 Obesity, unspecified; Z68.31 Body mass index [BMI] 31.0-31.9, adult; Z92.21 Personal history of antineoplastic chemotherapy; Z92.3 Personal history of irradiation
CPT/HCPCS: 36415; 74019; 80053; 85025; 85027; 87081; 88304; 94664

== ENCOUNTER 2017-12-21 10:02 | Outpatient (RCR) | payer SELFPAY ==
[2017-09-28 11:14] LABS: BASOPHILS % (AUTO) 1 % (0-10); EOSINOPHILS # (AUTO) 0.1 10^3/uL (0.0-0.3); EOSINOPHILS % (AUTO) 4 % (0-10); HEMATOCRIT 38 % (40-54); LYMPHOCYTES % (AUTO) 25 % (12-44); MEAN CORPUSCULAR HEMOGLOBIN 32 PG (25-34); MEAN CORPUSCULAR HGB CONC 34 G/DL (32-36); MEAN CORPUSCULAR VOLUME 92 FL (80-99); MEAN PLATELET VOLUME 10.9 FL (7.4-10.4); MONOCYTES # (AUTO) 0.4 X 10^3 (0.0-1.0); MONOCYTES % (AUTO) 10 % (0-12); NEUTROPHILS # (AUTO) 2.4 X 10^3 (1.8-7.8); NEUTROPHILS % (AUTO) 61 % (42-75); PLATELET COUNT 171 10^3/uL (130-400); RED BLOOD COUNT 4.12 10^6/uL (4.35-5.85); RED CELL DISTRIBUTION WIDTH 11.7 % (10.0-14.5)
[2017-09-28 11:37] LABS: ALANINE AMINOTRANSFERASE 20 U/L (0-55); ALBUMIN 3.8 GM/DL (3.2-4.5); ALKALINE PHOSPHATASE 76 U/L (40-136); BILIRUBIN,TOTAL 0.3 MG/DL (0.1-1.0); BUN/CREATININE RATIO 12; CALCIUM 8.4 MG/DL (8.5-10.1); CARBON DIOXIDE 21 MMOL/L (21-32); CHLORIDE 110 MMOL/L (98-107); CREATININE SERUM 1.07 MG/DL (0.60-1.30); GFR ESTIMATED > 60; GLUCOSE 100 MG/DL (70-105); POTASSIUM 4.2 MMOL/L (3.6-5.0); SODIUM 138 MMOL/L (135-145); TOTAL PROTEIN 6.8 GM/DL (6.4-8.2)
[~2017-12-21 10:02] MED LIST changes: +DOCU-143 PO
[2017-12-21 10:37] LABS: BASOPHILS % (AUTO) 0 % (0-10); EOSINOPHILS # (AUTO) 0.1 10^3/uL (0.0-0.3); EOSINOPHILS % (AUTO) 4 % (0-10); HEMATOCRIT 39 % (40-54); HEMOGLOBIN 13.8 G/DL (13.3-17.7); LYMPHOCYTES # (AUTO) 0.9 X 10^3 (1.0-4.0); LYMPHOCYTES % (AUTO) 26 % (12-44); MEAN CORPUSCULAR HEMOGLOBIN 31 PG (25-34); MEAN CORPUSCULAR HGB CONC 35 G/DL (32-36); MEAN CORPUSCULAR VOLUME 89 FL (80-99); MEAN PLATELET VOLUME 10.7 FL (7.4-10.4); MONOCYTES # (AUTO) 0.4 X 10^3 (0.0-1.0); MONOCYTES % (AUTO) 11 % (0-12); NEUTROPHILS # (AUTO) 2.1 X 10^3 (1.8-7.8); NEUTROPHILS % (AUTO) 59 % (42-75); PLATELET COUNT 177 10^3/uL (130-400); RED CELL DISTRIBUTION WIDTH 12.6 % (10.0-14.5); WHITE BLOOD COUNT 3.6 10^3/uL (4.3-11.0)
[2017-12-21 11:07] LABS: ALANINE AMINOTRANSFERASE 28 U/L (0-55); ALBUMIN 3.9 GM/DL (3.2-4.5); ALKALINE PHOSPHATASE 76 U/L (40-136); BILIRUBIN,TOTAL 0.3 MG/DL (0.1-1.0); BUN/CREATININE RATIO 9; CALCIUM 8.8 MG/DL (8.5-10.1); CARBON DIOXIDE 23 MMOL/L (21-32); CHLORIDE 107 MMOL/L (98-107); CREATININE SERUM 1.16 MG/DL (0.60-1.30); GFR ESTIMATED > 60; GLUCOSE 99 MG/DL (70-105); POTASSIUM 4.3 MMOL/L (3.6-5.0); SODIUM 139 MMOL/L (135-145); TOTAL PROTEIN 7.2 GM/DL (6.4-8.2)
== END 2017-12-27 | disposition home or self-care (01) ==
LOC: ONC 10:02
PROVIDERS: ATTEND Internal Medicine Hematology & Oncology
DX: C20 Malignant neoplasm of rectum (principal); Z45.2 Encounter for adjustment and management of vascular access device
CPT/HCPCS: 36591; 80053; 82378; 85025; 87324; 87449; 96523

== ENCOUNTER 2018-04-26 08:50 | Outpatient (RCR) | payer SELFPAY ==
[2018-03-15 10:51] LABS: BASOPHILS % (AUTO) 0 % (0-10); EOSINOPHILS # (AUTO) 0.1 10^3/uL (0.0-0.3); EOSINOPHILS % (AUTO) 3 % (0-10); HEMATOCRIT 39 % (40-54); HEMOGLOBIN 13.8 G/DL (13.3-17.7); LYMPHOCYTES % (AUTO) 22 % (12-44); MEAN CORPUSCULAR HEMOGLOBIN 32 PG (25-34); MEAN CORPUSCULAR HGB CONC 36 G/DL (32-36); MEAN CORPUSCULAR VOLUME 89 FL (80-99); MEAN PLATELET VOLUME 10.8 FL (7.4-10.4); MONOCYTES # (AUTO) 0.4 X 10^3 (0.0-1.0); MONOCYTES % (AUTO) 10 % (0-12); NEUTROPHILS # (AUTO) 2.8 X 10^3 (1.8-7.8); NEUTROPHILS % (AUTO) 64 % (42-75); PLATELET COUNT 194 10^3/uL (130-400); RED CELL DISTRIBUTION WIDTH 12.6 % (10.0-14.5); WHITE BLOOD COUNT 4.3 10^3/uL (4.3-11.0)
[2018-03-15 11:21] LABS: ALANINE AMINOTRANSFERASE 30 U/L (0-55); ALKALINE PHOSPHATASE 84 U/L (40-136); BILIRUBIN,TOTAL 0.4 MG/DL (0.1-1.0); BUN/CREATININE RATIO 10; CALCIUM 8.5 MG/DL (8.5-10.1); CARBON DIOXIDE 20 MMOL/L (21-32); CHLORIDE 108 MMOL/L (98-107); CREATININE SERUM 1.16 MG/DL (0.60-1.30); GFR ESTIMATED > 60; GLUCOSE 98 MG/DL (70-105); POTASSIUM 4.4 MMOL/L (3.6-5.0); SODIUM 137 MMOL/L (135-145); TOTAL PROTEIN 7.3 GM/DL (6.4-8.2)
== END 2018-05-02 | disposition home or self-care (01) ==
LOC: ONC 08:50
PROVIDERS: ATTEND Internal Medicine Hematology & Oncology
DX: C20 Malignant neoplasm of rectum (principal); Z45.2 Encounter for adjustment and management of vascular access device
CPT/HCPCS: 36591; 80053; 82378; 85025; 96523

== ENCOUNTER → 2018-05-23 | Outpatient (CLI) | payer OTHER ==
[~2018-05-23] MED LIST changes: +BARIUM SUSPENSION 2.1% (REDI-CAT 2) 450 ML PO ONE; +CATHETER FLUSH 10 ML SYR IV PRN; +IOHEXOL 350 MG/ML 150 ML (OMNIPAQUE 350) VIAL IV ONE; +NS 100 ML (IVPB) BAG IV ONE; +RECEIVED CONTRAST (Hold Metformin) IV SCH
--- NOTE | 2018-05-23 12:53 | Diagnostic Imaging Report ---
PROCEDURE: CT chest with contrast, CT abdomen and pelvis with and without contrast. TECHNIQUE: Pre and post intravenous contrast axial imaging of the abdomen and pelvis and post contrast axial imaging of the chest were performed. INDICATION: Rectal cancer for surveillance. COMPARISON: Exam compared with images performed during CT fusion PET of 08/18/2016. No previous dedicated diagnostic CT available for comparison. FINDINGS: Chest: No lung nodule or mass. No thoracic adenopathy, effusion, or infiltrate. No suspect chest wall disease. Abdomen: Tiny cyst in the left hepatic lobe is stable, previously non metabolically active. No solid or enhancing liver mass. No biliary abnormality. The spleen, adrenals, and pancreas are unremarkable. There has been the development of a mild degree of left-sided hydroureteronephrosis without radiodense stone. No perinephric edema. The right kidney contains a tiny cyst off its upper pole, otherwise negative. The appendix is normal. There is resection and anastomosis at the rectosigmoid colon at the site of previous circumferential hypermetabolic mass. There is induration and tissue thickening in the presacral and precoccygeal space as a common finding on a post-therapeutic basis in the setting of rectal cancer. The pelvic sidewalls are unremarkable. There are no abnormal-appearing ilioinguinal lymph nodes and there is no suspicious bony abnormality. IMPRESSION: 1. Chest: Negative. 2. Abdomen: Negative. 3. Pelvis: Postsurgical changes with likely post-therapeutic presacral tissue thickening. 4. Development of mild left-sided hydroureteronephrosis without radiodense stone, likely partially obstructed distal ureter owing to some pelvic scarring. Dictated by: Dictated on workstation # [id number]
== END ==
LOC: RAD 09:53
PROVIDERS: ATTEND Nurse Practitioner Adult Health
DX: C20 Malignant neoplasm of rectum (principal); N13.30 Unspecified hydronephrosis; Z98.890 Other specified postprocedural states
CPT/HCPCS: 71260; 74178

== ENCOUNTER 2018-07-19 09:42 | Outpatient (RCR) | payer OTHER ==
[2018-05-23 09:20] LABS: BUN/CREATININE RATIO 12; CALCIUM 8.8 MG/DL (8.5-10.1); CARBON DIOXIDE 21 MMOL/L (21-32); CHLORIDE 107 MMOL/L (98-107); CREATININE SERUM 1.17 MG/DL (0.60-1.30); GFR ESTIMATED > 60; GLUCOSE 94 MG/DL (70-105); POTASSIUM 4.2 MMOL/L (3.6-5.0); SODIUM 137 MMOL/L (135-145)
[2018-06-07 11:11] LABS: BASOPHILS % (AUTO) 0 % (0-10); EOSINOPHILS # (AUTO) 0.1 10^3/uL (0.0-0.3); EOSINOPHILS % (AUTO) 3 % (0-10); HEMATOCRIT 41 % (40-54); HEMOGLOBIN 13.9 G/DL (13.3-17.7); LYMPHOCYTES % (AUTO) 21 % (12-44); MEAN CORPUSCULAR HEMOGLOBIN 31 PG (25-34); MEAN CORPUSCULAR HGB CONC 34 G/DL (32-36); MEAN CORPUSCULAR VOLUME 90 FL (80-99); MEAN PLATELET VOLUME 11.1 FL (7.4-10.4); MONOCYTES # (AUTO) 0.4 X 10^3 (0.0-1.0); MONOCYTES % (AUTO) 9 % (0-12); NEUTROPHILS % (AUTO) 66 % (42-75); PLATELET COUNT 190 10^3/uL (130-400); RED CELL DISTRIBUTION WIDTH 12.4 % (10.0-14.5); WHITE BLOOD COUNT 4.5 10^3/uL (4.3-11.0)
[2018-06-07 11:35] LABS: ALANINE AMINOTRANSFERASE 27 U/L (0-55); ALKALINE PHOSPHATASE 76 U/L (40-136); BILIRUBIN,TOTAL 0.3 MG/DL (0.1-1.0); BUN/CREATININE RATIO 12; CALCIUM 8.6 MG/DL (8.5-10.1); CARBON DIOXIDE 23 MMOL/L (21-32); CHLORIDE 106 MMOL/L (98-107); CREATININE SERUM 1.13 MG/DL (0.60-1.30); GFR ESTIMATED > 60; GLUCOSE 87 MG/DL (70-105); POTASSIUM 4.2 MMOL/L (3.6-5.0); SODIUM 139 MMOL/L (135-145); TOTAL PROTEIN 7.2 GM/DL (6.4-8.2)
[~2018-07-19 09:42] MED LIST changes: -BARIUM SUSPENSION 2.1% (REDI-CAT 2) 450 ML PO ONE; -CATHETER FLUSH 10 ML SYR IV PRN; -IOHEXOL 350 MG/ML 150 ML (OMNIPAQUE 350) VIAL IV ONE; -NS 100 ML (IVPB) BAG IV ONE; -RECEIVED CONTRAST (Hold Metformin) IV SCH
== END 2018-08-21 | disposition home or self-care (01) ==
LOC: ONC 09:42
PROVIDERS: ATTEND Internal Medicine Hematology & Oncology
DX: C20 Malignant neoplasm of rectum (principal); E66.9 Obesity, unspecified; Z68.32 Body mass index [BMI] 32.0-32.9, adult; Z92.21 Personal history of antineoplastic chemotherapy; Z92.3 Personal history of irradiation; Z45.2 Encounter for adjustment and management of vascular access device
CPT/HCPCS: 36415; 36591; 80048; 80053; 82378; 85025; 96523

== ENCOUNTER 2018-07-20 15:00 | Outpatient (CLI) | payer OTHER ==
[~2018-07-20] VITALS: Ht 188 cm; Wt 117.5 kg
== END 2018-07-20 15:16 | disposition home or self-care (01) ==
LOC: PREOP 15:00
PROVIDERS: ATTEND Surgery
DX: Z01.818 Encounter for other preprocedural examination (principal)

== ENCOUNTER 2018-07-26 09:01 | Day surgery (SDC) | payer OTHER ==
[~2018-07-26] VITALS: Ht 188 cm; Wt 117.5 kg
[2018-07-26] MEDS ORDERED: LACTATED RINGERS 1,000 ML IV STA (09:10)
[2018-07-26] MEDS ORDERED: LACTATED RINGERS 1,000 ML IV ONE (09:12)
--- OUTSIDE RECORDS SUMMARY | 2018-07-26 09:13 | XMS REPORT | Continuity of Care Document ---
Author Organization Unknown Address Unknown Allergies Active Description Code Type Severity Reaction Onset Reported/Identified Relationship to Patient Clinical Status Yes No Known Medication Allergies Drug N/A N/A Yes No Known Drug Allergies [id number] Drug Allergy Unknown N/A 08/14/2016 Medications There is no data. Problems Date Dx Coded Attending Type Code Diagnosis Diagnosed By TOREY ELMORE Ot C20 MALIGNANT NEOPLASM OF RECTUM 08/13/2016 ANGELICA BRITTON DO Ot Z01.818 ENCOUNTER FOR OTHER PREPROCEDURAL EXAMIN 08/13/2016 ANGELICA BRITTON DO Ot Z11.2 ENCOUNTER FOR SCREENING FOR OTHER BACTER 08/14/2016 ANGELICA BRITTON DO Ot E07.9 DISORDER OF THYROID, UNSPECIFIED 08/14/2016 ANGELICA BRITTON DO Ot K62.9 DISEASE OF ANUS AND RECTUM, UNSPECIFIED 08/14/2016 ANGELICA BRITTON DO Ot Z79.899 OTHER ELECTRIC CELL TENDER (CURRENT) DRUG THERAPY 08/19/2016 ANGELICA BRITTON DO Ot Z01.818 ENCOUNTER FOR OTHER PREPROCEDURAL EXAMIN 08/19/2016 ANGELICA BRITTON DO Ot Z11.2 ENCOUNTER FOR SCREENING FOR OTHER BACTER 08/21/2016 ANGELICA BRITTON DO Ot C20 MALIGNANT NEOPLASM OF RECTUM 08/21/2016 ANGELICA BRITTON DO Ot C18.9 MALIGNANT NEOPLASM OF COLON, UNSPECIFIED 08/22/2016 ANGELICA BRITTON DO Ot C18.9 MALIGNANT NEOPLASM OF COLON, UNSPECIFIED 08/24/2016 ANGELICA BRITTON DO Ot C18.9 MALIGNANT NEOPLASM OF COLON, UNSPECIFIED 08/26/2016 ANGELICA BRITTON DO Ot E07.9 DISORDER OF THYROID, UNSPECIFIED 08/26/2016 ANGELICA BRITTON DO Ot K62.9 DISEASE OF ANUS AND RECTUM, UNSPECIFIED 08/26/2016 ANGELICA BRITTON DO Ot Z79.899 OTHER RESIDENTIAL (CURRENT) DRUG THERAPY 08/26/2016 TOREY ELMORE Ot C20 MALIGNANT NEOPLASM OF RECTUM 08/26/2016 BRITTONANGELICA ERVIN DO Ot C20 MALIGNANT NEOPLASM OF RECTUM 09/22/2016 ANGELICA BRITTON DO Ot C18.9 MALIGNANT NEOPLASM OF COLON, UNSPECIFIED 09/22/2016 RAF BRITTON DOTT D Ot C20 MALIGNANT NEOPLASM OF RECTUM 09/22/2016 TOREY ELMORE Ot C20 MALIGNANT NEOPLASM OF RECTUM 09/22/2016 ANGELICA BRITTON DO Ot C18.9 MALIGNANT NEOPLASM OF COLON, UNSPECIFIED 09/22/2016 RAF BRITTON DOTT Maricel Ot C20 MALIGNANT NEOPLASM OF RECTUM 09/23/2016 ANGELICA BRITTON DO Ot C20 MALIGNANT NEOPLASM OF RECTUM 11/03/2016 ANGELICA BRITTON DO Ot Z53.9 PROCEDURE AND TREATMENT NOT CARRIED OUT, 11/05/2016 ANGELICA BRITTON DO Ot C20 MALIGNANT NEOPLASM OF RECTUM 11/05/2016 ANGELICA BRITTON DO Ot K62.4 STENOSIS OF ANUS AND RECTUM 11/05/2016 ANGELICA BRITTON DO Ot Z92.21 PERSONAL HISTORY OF ANTINEOPLASTIC CHEMO 11/05/2016 ANGELICA BRITTON DO Ot Z92.3 PERSONAL HISTORY OF IRRADIATION 11/05/2016 ANGELICA BRITTON DO Ot Z53.9 PROCEDURE AND TREATMENT NOT CARRIED OUT, 11/12/2016 ANGELICA BRITTON DO Ot C18.9 MALIGNANT NEOPLASM OF COLON, UNSPECIFIED 11/12/2016 ANGELICA BRITTON DO Ot Z01.818 ENCOUNTER FOR OTHER PREPROCEDURAL EXAMIN 11/17/2016 ANGELICA BRTITON DO Ot C20 MALIGNANT NEOPLASM OF RECTUM 11/17/2016 ANGELICA BRITTON DO Ot C20 MALIGNANT NEOPLASM OF RECTUM 11/19/2016 TOREY ELMORE Ot C20 MALIGNANT NEOPLASM OF RECTUM 11/19/2016 TOREY ELMORE Ot E07.9 DISORDER OF THYROID, UNSPECIFIED 11/19/2016 TOREY ELMORE Ot Z51.0 ENCOUNTER FOR ANTINEOPLASTIC RADIATION T 11/19/2016 TOREY ELMORE Ot Z79.899 OTHER RESIDENTIAL (CURRENT) DRUG THERAPY 11/20/2016 ANGELICA BRITTON DO Ot C20 MALIGNANT NEOPLASM OF RECTUM 11/20/2016 ANGELICA BRITTON DO Ot D62 ACUTE POSTHEMORRHAGIC ANEMIA 11/20/2016 ANGELICA BRITTON DO Ot J98.11 ATELECTASIS 11/25/2016 RAMÍREZTOREY Ot C20 MALIGNANT NEOPLASM OF RECTUM 11/25/2016 RAMÍREZ TOREY Nieto Ot E07.9 DISORDER OF THYROID, UNSPECIFIED 11/25/2016 RAMÍREZ TOREY Nieto Ot Z51.0 ENCOUNTER FOR ANTINEOPLASTIC RADIATION T 11/25/2016 RAMÍREZTOREY Ot Z79.899 OTHER RESIDENTIAL (CURRENT) DRUG THERAPY 12/01/2016 RAMÍREZTOREY Ot C20 MALIGNANT NEOPLASM OF RECTUM 12/01/2016 RAMÍREZ TOREY Nieto Ot E07.9 DISORDER OF THYROID, UNSPECIFIED 12/01/2016 RAMÍREZ, TOREY Nieto Ot Z51.0 ENCOUNTER FOR ANTINEOPLASTIC RADIATION T 12/01/2016 RAMÍREZTOREY Ot Z79.899 OTHER RESIDENTIAL (CURRENT) DRUG THERAPY 12/01/2016 ANGELICA BRITTON DO, Ot C20 MALIGNANT NEOPLASM OF RECTUM 12/01/2016 ANGELICA BRITTON DO Ot K62.4 STENOSIS OF ANUS AND RECTUM 12/01/2016 ANGELICA BRITTON DO Ot Z92.21 PERSONAL HISTORY OF ANTINEOPLASTIC CHEMO 12/01/2016 ANGELICA BRITTON DO Ot Z92.3 PERSONAL HISTORY OF IRRADIATION 12/14/2016 TOREY ELMORE Ot C20 MALIGNANT NEOPLASM OF RECTUM 12/15/2016 TOREY ELMORE Ot C20 MALIGNANT NEOPLASM OF RECTUM 12/16/2016 TOREY ELMORE Ot C20 MALIGNANT NEOPLASM OF RECTUM 12/21/2016 TRACY CINTRON MD, Ot C20 MALIGNANT NEOPLASM OF RECTUM 12/21/2016 TRACY CINTRON MD Ot L98.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 12/21/2016 TRACY CINTRON MD Ot T81.31XA DISRUPTION OF EXTERNAL OPERATION (SURGIC 12/21/2016 TRACY CINTRON MD, Ot Z93.3 COLOSTOMY STATUS 12/21/2016 ANGELICA BRITTON DO, Ot C20 MALIGNANT NEOPLASM OF RECTUM 12/21/2016 ANGELICA BRITTON DO, Ot Z01.818 ENCOUNTER FOR OTHER PREPROCEDURAL EXAMIN 12/23/2016 TOREY ELMORE Ot C20 MALIGNANT NEOPLASM OF RECTUM 12/24/2016 ANGELICA BRITTON DO, Ot C20 MALIGNANT NEOPLASM OF RECTUM 12/24/2016 BRITTON DO, ANGELICA D Ot E66.9 OBESITY, UNSPECIFIED 12/24/2016 BRITTON DO, ANGELICA D Ot Z68.31 BODY MASS INDEX (BMI) 31.0-31.9, ADULT 12/24/2016 BRITTON DO, ANGELICA D Ot Z93.2 ILEOSTOMY STATUS 12/25/2016 TRACY CINTRON MD Ot C20 MALIGNANT NEOPLASM OF RECTUM 12/25/2016 TRACY CINTRON MD Ot L98.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 12/25/2016 TRACY CINTRON MD Ot T81.31XA DISRUPTION OF EXTERNAL OPERATION (SURGIC 12/25/2016 TRACY CINTRON MD Ot Z93.3 COLOSTOMY STATUS 12/25/2016 TRACY CINTRON MD, Ot C20 MALIGNANT NEOPLASM OF RECTUM 12/25/2016 TRACY CINTRON MD, Ot L98.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 12/25/2016 TRACY CINTRON MD Ot T81.31XA DISRUPTION OF EXTERNAL OPERATION (SURGIC 12/25/2016 TRACY CINTRON MD Ot Z93.3 COLOSTOMY STATUS 12/29/2016 TRACY CINTRON MD Ot C20 MALIGNANT NEOPLASM OF RECTUM 12/29/2016 TRACY CINTRON MD Ot L98.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 12/29/2016 TRACY CINTRON MD Ot T81.31XA DISRUPTION OF EXTERNAL OPERATION (SURGIC 12/29/2016 TRACY CINTRON MD Ot Z93.3 COLOSTOMY STATUS 12/29/2016 TRACY CINTRON MD, Ot C20 MALIGNANT NEOPLASM OF RECTUM 12/29/2016 TRACY CINTRON MD Ot L98.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 12/29/2016 TRACY CINTRON MD Ot T81.31XA DISRUPTION OF EXTERNAL OPERATION (SURGIC 12/29/2016 TRACY CINTRON MD Ot Z93.3 COLOSTOMY STATUS 12/30/2016 BRITTON DOANGELICA D Ot C20 MALIGNANT NEOPLASM OF RECTUM 12/30/2016 BRITTON DOANGELICA D Ot E66.9 OBESITY, UNSPECIFIED 12/30/2016 BRITTON DO, ANGELICA D Ot Z68.31 BODY MASS INDEX (BMI) 31.0-31.9, ADULT 12/30/2016 ANGELICA BRITTON DO D Ot Z93.2 ILEOSTOMY STATUS 12/31/2016 TRACY CINTRON MD Ot C20 MALIGNANT NEOPLASM OF RECTUM 12/31/2016 TRACY CINTRON MD Ot L98.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 12/31/2016 TRACY CINTRON MD Ot T81.31XA DISRUPTION OF EXTERNAL OPERATION (SURGIC 12/31/2016 TRACY CINTRON MD Ot Z93.3 COLOSTOMY STATUS 01/10/2017 TRACY CINTRON MD Ot C20 MALIGNANT NEOPLASM OF RECTUM 01/10/2017 TRACY CINTRON MD Ot L98.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 01/10/2017 TRACY CINTRON MD Ot T81.31XA DISRUPTION OF EXTERNAL OPERATION (SURGIC 01/10/2017 TRACY CINTRON MD, Ot Z93.3 COLOSTOMY STATUS 01/13/2017 TRACY CINTRON MD Ot C20 MALIGNANT NEOPLASM OF RECTUM 01/13/2017 TRACY CINTRON MD Ot L98.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 01/13/2017 TRACY CINTRON MD Ot T81.31XA DISRUPTION OF EXTERNAL OPERATION (SURGIC 01/13/2017 TRACY CINTRON MD Ot Z93.3 COLOSTOMY STATUS 01/13/2017 TRACY CINTRON MD Ot C20 MALIGNANT NEOPLASM OF RECTUM 01/13/2017 TRACY CINTRON MD Ot L98.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 01/13/2017 TRACY CINTRON MD Ot T81.31XA DISRUPTION OF EXTERNAL OPERATION (SURGIC 01/13/2017 TRACY CINTRON MD Ot Z93.3 COLOSTOMY STATUS 01/13/2017 TRACY CINTRON MD Ot C20 MALIGNANT NEOPLASM OF RECTUM 01/13/2017 TRACY CINTRON MD Ot L98.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 01/13/2017 TRACY CINTRON MD Ot T81.31XA DISRUPTION OF EXTERNAL OPERATION (SURGIC 01/13/2017 TRACY CINTRON MD Ot Z93.3 COLOSTOMY STATUS 01/13/2017 TRACY CINTRON MD Ot C20 MALIGNANT NEOPLASM OF RECTUM 01/13/2017 TRACY CINTRON MD Ot L98.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 01/13/2017 TRACY CINTRON MD Ot T81.31XA DISRUPTION OF EXTERNAL OPERATION (SURGIC 01/13/2017 TRACY CINTRON MD, Ot Z93.3 COLOSTOMY STATUS 01/13/2017 TRACY CINTRON MD, Ot C20 MALIGNANT NEOPLASM OF RECTUM 01/13/2017 TRACY CINTRON MD, Ot L98.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 01/13/2017 TRACY CINTRON MD, Ot T81.31XA DISRUPTION OF EXTERNAL OPERATION (SURGIC 01/13/2017 TRACY CINTRON MD, Ot Z93.3 COLOSTOMY STATUS 01/13/2017 TRACY CINTRON MD, Ot C20 MALIGNANT NEOPLASM OF RECTUM 01/13/2017 TRACY CINTRON MD, Ot L98.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 01/13/2017 TRACY CINTRON MD, Ot T81.31XA DISRUPTION OF EXTERNAL OPERATION (SURGIC 01/13/2017 TRACY CINTRON MD, Ot Z93.3 COLOSTOMY STATUS 01/13/2017 TRACY CINTRON MD, Ot C20 MALIGNANT NEOPLASM OF RECTUM 01/13/2017 TRACY CINTRON MD, Ot L98.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 01/13/2017 TRACY CINTRON MD, Ot T81.31XA DISRUPTION OF EXTERNAL OPERATION (SURGIC 01/13/2017 TRACY CINTRON MD, Ot Z93.3 COLOSTOMY STATUS 01/13/2017 TRACY CINTRON MD, Ot Z48.01 ENCOUNTER FOR CHANGE OR REMOVAL OF SURGI 01/14/2017 TRACY CINTRON MD, Ot C20 MALIGNANT NEOPLASM OF RECTUM 01/14/2017 TRACY CINTRON MD, Ot L98.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 01/14/2017 TRACY CINTRON MD, Ot T81.31XA DISRUPTION OF EXTERNAL OPERATION (SURGIC 01/14/2017 TRACY CINTRON MD, Ot Z93.3 COLOSTOMY STATUS 01/14/2017 ANGELICA BRITTON DO Ot C20 MALIGNANT NEOPLASM OF RECTUM 01/14/2017 ANGELICA BRITTON DO Ot E66.9 OBESITY, UNSPECIFIED 01/14/2017 ANGELICA BRITTON DO Ot Z68.31 BODY MASS INDEX (BMI) 31.0-31.9, ADULT 01/14/2017 ANGELICA BRITTON DO Ot Z93.2 ILEOSTOMY STATUS 01/14/2017 TRACY CINTRON MD, Ot Z48.01 ENCOUNTER FOR CHANGE OR REMOVAL OF SURGI 01/21/2017 TRACY CINTRON MD, Ot C20 MALIGNANT NEOPLASM OF RECTUM 01/21/2017 TRACY CINTRON MD, Ot 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, 01/21/2017 TRACY CINTRON MD, Ot L98.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 01/21/2017 TRACY CINTRON MD, Ot T81.31XA DISRUPTION OF EXTERNAL OPERATION (SURGIC 01/21/2017 TRACY CINTRON MD, Ot Z93.3 COLOSTOMY STATUS 01/26/2017 TRACY CINTRON MD, Ot C20 MALIGNANT NEOPLASM OF RECTUM 01/26/2017 TRACY CINTRON MD, Ot 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, 01/26/2017 TRACY CINTRON MD, Ot L98.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 01/26/2017 TRACY CINTRON MD, Ot T81.31XA DISRUPTION OF EXTERNAL OPERATION (SURGIC 01/26/2017 TRACY CINTRON MD, Ot Z93.3 COLOSTOMY STATUS 01/28/2017 TOREY ELMORE Ot Z45.2 ENCOUNTER FOR ADJUSTMENT AND MANAGEMENT 01/29/2017 TRACY CINTRON MD, Ot C20 MALIGNANT NEOPLASM OF RECTUM 01/29/2017 TRACY CINTRON MD, Ot 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, 01/29/2017 TRACY CINTRON MD, Ot L98.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 01/29/2017 TRACY CINTRON MD, Ot T81.31XA DISRUPTION OF EXTERNAL OPERATION (SURGIC 01/29/2017 TRACY CINTRON MD, Ot Z93.3 COLOSTOMY STATUS 01/29/2017 TOREY ELMORE Ot Z45.2 ENCOUNTER FOR ADJUSTMENT AND MANAGEMENT 02/11/2017 TRACY CINTRON MD, Ot C20 MALIGNANT NEOPLASM OF RECTUM 02/11/2017 TRACY CINTRON MD, Ot L98.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 02/11/2017 TRACY CINTRON MD, Ot T81.31XA DISRUPTION OF EXTERNAL OPERATION (SURGIC 02/11/2017 TRACY CINTRON MD, Ot Z93.3 COLOSTOMY STATUS 02/11/2017 TRACY CINTRON MD, Ot C20 MALIGNANT NEOPLASM OF RECTUM 02/11/2017 TRACY CINTRON MD, Ot 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, 02/11/2017 TRACY CINTRON MD Ot L98.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 02/11/2017 TRACY CINTRON MD, Ot T81.31XA DISRUPTION OF EXTERNAL OPERATION (SURGIC 02/11/2017 TRACY CINTRON MD Ot Z93.3 COLOSTOMY STATUS 02/11/2017 TRACY CINTRON MD, Ot C20 MALIGNANT NEOPLASM OF RECTUM 02/11/2017 TRACY CINTRON MD, Ot 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, 02/11/2017 TRACY CINTRON MD, Ot L98.491 NON-PRS CHRONIC ULCER SKIN/ SITES LIMITE 02/11/2017 TRACY CINTRON MD, Ot T81.31XA DISRUPTION OF EXTERNAL OPERATION (SURGIC 02/11/2017 TRACY CINTRON MD, Ot Z93.3 COLOSTOMY STATUS 04/01/2017 TOREY ELMORE Ot Z45.2 ENCOUNTER FOR ADJUSTMENT AND MANAGEMENT 04/07/2017 TOREY ELMORE Ot Z45.2 ENCOUNTER FOR ADJUSTMENT AND MANAGEMENT 04/07/2017 ANGELICA BRITTON DO Ot C18.9 MALIGNANT NEOPLASM OF COLON, UNSPECIFIED 04/07/2017 ANGELICA BRITTON DO Ot C20 MALIGNANT NEOPLASM OF RECTUM 04/07/2017 TRACY CINTRON MD, Ot C20 MALIGNANT NEOPLASM OF RECTUM 04/07/2017 TRACY CINTRON MD, Ot L98.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 04/07/2017 TRACY CINTRON MD Ot T81.31XA DISRUPTION OF EXTERNAL OPERATION (SURGIC 04/07/2017 TRACY CINTRON MD, Ot Z93.3 COLOSTOMY STATUS 04/07/2017 TRACY CINTRON MD Ot C20 MALIGNANT NEOPLASM OF RECTUM 04/07/2017 TRACY CINTRON MD Ot L98.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 04/07/2017 TRACY CINTRON MD Ot T81.31XA DISRUPTION OF EXTERNAL OPERATION (SURGIC 04/07/2017 TRACY CINTRON MD Ot Z93.3 COLOSTOMY STATUS 04/07/2017 TRACY CINTRON MD, Ot C20 MALIGNANT NEOPLASM OF RECTUM 04/07/2017 TRACY CINTRON MD Ot L98.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 04/07/2017 TRACY CINTRON MD Ot T81.31XA DISRUPTION OF EXTERNAL OPERATION (SURGIC 04/07/2017 TRACY CINTRON MD Ot Z93.3 COLOSTOMY STATUS 04/07/2017 TRACY CINTRON MD, Ot C20 MALIGNANT NEOPLASM OF RECTUM 04/07/2017 TRACY CINTRON MD Ot L98.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 04/07/2017 TRACY CINTRON MD Ot T81.31XA DISRUPTION OF EXTERNAL OPERATION (SURGIC 04/07/2017 TRACY CINTRON MD Ot Z93.3 COLOSTOMY STATUS 04/07/2017 TRACY CINTRON MD Ot C20 MALIGNANT NEOPLASM OF RECTUM 04/07/2017 TRACY CINTRON MD Ot L98.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 04/07/2017 TRACY CINTRON MD, Ot T81.31XA DISRUPTION OF EXTERNAL OPERATION (SURGIC 04/07/2017 TRACY CINTRON MD Ot Z93.3 COLOSTOMY STATUS 04/07/2017 TRACY CINTRON MD Ot Z48.01 ENCOUNTER FOR CHANGE OR REMOVAL OF SURGI 04/07/2017 TRACY CINTRON MD Ot C20 MALIGNANT NEOPLASM OF RECTUM 04/07/2017 TRACY CINTRON MD Ot L98.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 04/07/2017 TRACY CINTRON MD Ot T81.31XA DISRUPTION OF EXTERNAL OPERATION (SURGIC 04/07/2017 TRACY CINTRON MD Ot Z93.3 COLOSTOMY STATUS 04/07/2017 TRACY CINTRON MD Ot C20 MALIGNANT NEOPLASM OF RECTUM 04/07/2017 TRACY CINTRON MD Ot L98.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 04/07/2017 TRACY CINTRON MD Ot T81.31XA DISRUPTION OF EXTERNAL OPERATION (SURGIC 04/07/2017 TRACY CINTRON MD Ot Z93.3 COLOSTOMY STATUS 04/07/2017 TRACY CINTRON MD Ot C20 MALIGNANT NEOPLASM OF RECTUM 04/07/2017 TRACY CINTRON MD Ot L98.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 04/07/2017 TRACY CINTRON MD Ot T81.31XA DISRUPTION OF EXTERNAL OPERATION (SURGIC 04/07/2017 TRACY CINTRON MD Ot Z93.3 COLOSTOMY STATUS 04/07/2017 TRACY CINTRON MD Ot C20 MALIGNANT NEOPLASM OF RECTUM 04/07/2017 TRACY CINTRON MD, Ot 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, 04/07/2017 TRACY CINTRON MD, Ot L98.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 04/07/2017 TRACY CINTRON MD, Ot T81.31XA DISRUPTION OF EXTERNAL OPERATION (SURGIC 04/07/2017 TRACY CINTRON MD, Ot Z93.3 COLOSTOMY STATUS 04/07/2017 TRACY CINTRON MD, Ot C20 MALIGNANT NEOPLASM OF RECTUM 04/07/2017 TRACY CINTRON MD, Ot 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, 04/07/2017 TRACY CINTRON MD, Ot L98.491 NON-PRS CHRONIC ULCER SKIN/ SITES LIMITE 04/07/2017 TRACY CINTRON MD, Ot T81.31XA DISRUPTION OF EXTERNAL OPERATION (SURGIC 04/07/2017 TRACY CINTRON MD, Ot Z93.3 COLOSTOMY STATUS 04/07/2017 TOREY ELMORE Ot Z45.2 ENCOUNTER FOR ADJUSTMENT AND MANAGEMENT 04/13/2017 TOREY ELMORE Ot Z45.2 ENCOUNTER FOR ADJUSTMENT AND MANAGEMENT 04/27/2017 TOREY ELMORE Ot Z45.2 ENCOUNTER FOR ADJUSTMENT AND MANAGEMENT 04/28/2017 TOREY ELMORE Ot Z45.2 ENCOUNTER FOR ADJUSTMENT AND MANAGEMENT 05/04/2017 TOREY ELMORE Ot Z45.2 ENCOUNTER FOR ADJUSTMENT AND MANAGEMENT 05/25/2017 TOREY ELMORE Ot Z45.2 ENCOUNTER FOR ADJUSTMENT AND MANAGEMENT 06/01/2017 TOREY ELMORE Ot Z45.2 ENCOUNTER FOR ADJUSTMENT AND MANAGEMENT 07/07/2017 ANGELICA BRITTON DO Ot C20 MALIGNANT NEOPLASM OF RECTUM 07/07/2017 TRACY CINTRON MD, Ot C20 MALIGNANT NEOPLASM OF RECTUM 07/07/2017 TRACY CINTRON MD, Ot L98.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 07/07/2017 TRACY CINTRON MD, Ot T81.31XA DISRUPTION OF EXTERNAL OPERATION (SURGIC 07/07/2017 TRACY CINTRON MD, Ot Z93.3 COLOSTOMY STATUS 07/13/2017 ANGELICA BRITTON DO Ot Z01.818 ENCOUNTER FOR OTHER PREPROCEDURAL EXAMIN 07/13/2017 ANGELICA BRITTON DO Ot Z85.040 PERSONAL HISTORY OF MALIGNANT CARCINOID 07/14/2017 TOREY ELMORE Ot C20 MALIGNANT NEOPLASM OF RECTUM 07/14/2017 TOREY ELMORE Ot Z51.11 ENCOUNTER FOR ANTINEOPLASTIC CHEMOTHERAP 07/14/2017 ANGELICA BRITTON DO Ot Z01.818 ENCOUNTER FOR OTHER PREPROCEDURAL EXAMIN 07/14/2017 ANGELICA BRITTON DO Ot Z85.040 PERSONAL HISTORY OF MALIGNANT CARCINOID 07/20/2017 ANGELICA BRITTON DO Ot Z12.11 ENCOUNTER FOR SCREENING FOR MALIGNANT NE 07/20/2017 ANGELICA BRITTON DO Ot Z85.048 PRSNL HX OF MALIG NEOPLM OF RECTUM, RECT 07/21/2017 ANGELICA BRITTON DO Ot Z12.11 ENCOUNTER FOR SCREENING FOR MALIGNANT NE 07/21/2017 ANGELICA BRITTON DO Ot Z85.048 PRSNL HX OF MALIG NEOPLM OF RECTUM, RECT 08/02/2017 TOREY ELMORE Ot C20 MALIGNANT NEOPLASM OF RECTUM 08/02/2017 TOREY ELMORE Ot Z51.11 ENCOUNTER FOR ANTINEOPLASTIC CHEMOTHERAP 08/10/2017 ANGELICA BRITTON DO Ot Z01.818 ENCOUNTER FOR OTHER PREPROCEDURAL EXAMIN 08/12/2017 ANGELICA BRITTON DO Ot Z01.818 ENCOUNTER FOR OTHER PREPROCEDURAL EXAMIN 08/15/2017 ANGELICA BRITTON DO Ot C20 MALIGNANT NEOPLASM OF RECTUM 08/15/2017 ANGELICA BRITTON DO Ot E66.9 OBESITY, UNSPECIFIED 08/15/2017 ANGELICA BRITTON DO Ot Z43.2 ENCOUNTER FOR ATTENTION TO ILEOSTOMY 08/15/2017 ANGELICA BRITTON DO Ot Z68.31 BODY MASS INDEX (BMI) 31.0-31.9, ADULT 08/15/2017 ANGELICA BRITTON DO Ot Z92.21 PERSONAL HISTORY OF ANTINEOPLASTIC CHEMO 08/15/2017 ANGELICA BRITTON DO Ot Z92.3 PERSONAL HISTORY OF IRRADIATION 09/24/2017 ANGELICA BRITTON DO Ot C20 MALIGNANT NEOPLASM OF RECTUM 09/24/2017 TRACY CINTRON MD Ot C20 MALIGNANT NEOPLASM OF RECTUM 09/24/2017 TRACY CINTRON MD Ot L98.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 09/24/2017 TRACY CINTRON MD Ot T81.31XA DISRUPTION OF EXTERNAL OPERATION (SURGIC 09/24/2017 TRACY CINTRON MD Ot Z93.3 COLOSTOMY STATUS 09/28/2017 RAF BRITTON DOTT D Ot C20 MALIGNANT NEOPLASM OF RECTUM 09/28/2017 TRACY CINTRON MD Ot C20 MALIGNANT NEOPLASM OF RECTUM 09/28/2017 TRACY CINTRON MD Ot L98.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 09/28/2017 TRACY CINTRON MD Ot T81.31XA DISRUPTION OF EXTERNAL OPERATION (SURGIC 09/28/2017 TRACY CINTRON MD Ot Z93.3 COLOSTOMY STATUS 12/08/2017 ANGELICA BRITTON DO Ot C18.9 MALIGNANT NEOPLASM OF COLON, UNSPECIFIED 12/08/2017 ANGELICA BRITTON DO Ot C20 MALIGNANT NEOPLASM OF RECTUM 12/08/2017 TRACY CINTRON MD, Ot C20 MALIGNANT NEOPLASM OF RECTUM 12/08/2017 TRACY CINTRON MD Ot L98.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 12/08/2017 TRACY CINTRON MD Ot T81.31XA DISRUPTION OF EXTERNAL OPERATION (SURGIC 12/08/2017 TRACY CINTRON MD Ot Z93.3 COLOSTOMY STATUS 12/08/2017 TRACY CINTRON MD Ot C20 MALIGNANT NEOPLASM OF RECTUM 12/08/2017 TRACY CINTRON MD Ot L98.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 12/08/2017 TRCAY CINTRON MD Ot T81.31XA DISRUPTION OF EXTERNAL OPERATION (SURGIC 12/08/2017 TRACY CINTRON MD Ot Z93.3 COLOSTOMY STATUS 12/08/2017 TRACY CINTRON MD Ot C20 MALIGNANT NEOPLASM OF RECTUM 12/08/2017 TRACY CINTRON MD Ot L98.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 12/08/2017 TRACY CINTRON MD Ot T81.31XA DISRUPTION OF EXTERNAL OPERATION (SURGIC 12/08/2017 TRACY CINTRON MD Ot Z93.3 COLOSTOMY STATUS 12/08/2017 TRACY CINTRON MD Ot C20 MALIGNANT NEOPLASM OF RECTUM 12/08/2017 TRACY CINTRON MD Ot L98.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 12/08/2017 TRACY CINTRON MD Ot T81.31XA DISRUPTION OF EXTERNAL OPERATION (SURGIC 12/08/2017 TRACY CINTRON MD Ot Z93.3 COLOSTOMY STATUS 12/08/2017 TRACY CINTRON MD, Ot C20 MALIGNANT NEOPLASM OF RECTUM 12/08/2017 TRACY CINTRON MD, Ot L98.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 12/08/2017 TRACY CINTRON MD, Ot T81.31XA DISRUPTION OF EXTERNAL OPERATION (SURGIC 12/08/2017 TRACY CINTRON MD Ot Z93.3 COLOSTOMY STATUS 12/08/2017 TRACY CINTRON MD Ot Z48.01 ENCOUNTER FOR CHANGE OR REMOVAL OF SURGI 12/08/2017 TRACY CINTRON MD Ot C20 MALIGNANT NEOPLASM OF RECTUM 12/08/2017 TRACY CINTRON MD, Ot L98.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 12/08/2017 TRACY CINTORN MD, Ot T81.31XA DISRUPTION OF EXTERNAL OPERATION (SURGIC 12/08/2017 TRACY CINTRON MD Ot Z93.3 COLOSTOMY STATUS 12/08/2017 TRACY CINTRON MD, Ot C20 MALIGNANT NEOPLASM OF RECTUM 12/08/2017 TRACY CINTRON MD, Ot L98.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 12/08/2017 TRACY CINTRON MD, Ot T81.31XA DISRUPTION OF EXTERNAL OPERATION (SURGIC 12/08/2017 TRACY CINTRON MD Ot Z93.3 COLOSTOMY STATUS 12/08/2017 TRACY CINTRON MD Ot C20 MALIGNANT NEOPLASM OF RECTUM 12/08/2017 TRACY CINTRON MD Ot L98.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 12/08/2017 TRACY CINTRON MD Ot T81.31XA DISRUPTION OF EXTERNAL OPERATION (SURGIC 12/08/2017 TRACY CINTRON MD Ot Z93.3 COLOSTOMY STATUS 12/08/2017 TRACY CINTRON MD, Ot C20 MALIGNANT NEOPLASM OF RECTUM 12/08/2017 TRACY CINTRON MD, Ot 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, 12/08/2017 TRCAY CINTRON MD, Ot L98.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 12/08/2017 TRACY CINTRON MD Ot T81.31XA DISRUPTION OF EXTERNAL OPERATION (SURGIC 12/08/2017 TRACY CINTRON MD Ot Z93.3 COLOSTOMY STATUS 12/08/2017 TRACY CINTRON MD, Ot C20 MALIGNANT NEOPLASM OF RECTUM 12/08/2017 TRACY CINTRON MD, Ot 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, 12/08/2017 TRACY CINTRON MD, Ot L98.491 NON-PRS CHRONIC ULCER SKIN/ SITES LIMITE 12/08/2017 TRACY CINTRON MD, Ot T81.31XA DISRUPTION OF EXTERNAL OPERATION (SURGIC 12/08/2017 TRACY CINTRON MD, Ot Z93.3 COLOSTOMY STATUS 12/08/2017 TOREY ELMORE Ot C20 MALIGNANT NEOPLASM OF RECTUM 12/09/2017 ANGELICA BRITTON DO Ot C18.9 MALIGNANT NEOPLASM OF COLON, UNSPECIFIED 12/09/2017 ANGELICA BRITTON DO Ot C20 MALIGNANT NEOPLASM OF RECTUM 12/09/2017 TRACY CINTRON MD, Ot C20 MALIGNANT NEOPLASM OF RECTUM 12/09/2017 TRACY CINTRON MD, Ot L98.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 12/09/2017 TRACY CINTRON MD, Ot T81.31XA DISRUPTION OF EXTERNAL OPERATION (SURGIC 12/09/2017 TRACY CINTRON MD, Ot Z93.3 COLOSTOMY STATUS 12/09/2017 TRACY CINTRON MD, Ot C20 MALIGNANT NEOPLASM OF RECTUM 12/09/2017 TRACY CINTRON MD, Ot L98.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 12/09/2017 TRACY CINTRON MD, Ot T81.31XA DISRUPTION OF EXTERNAL OPERATION (SURGIC 12/09/2017 TRACY CINTRON MD, Ot Z93.3 COLOSTOMY STATUS 12/09/2017 TRACY CINTRON MD, Ot C20 MALIGNANT NEOPLASM OF RECTUM 12/09/2017 TRACY CINTRON MD, Ot L98.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 12/09/2017 TRACY CINTRON MD, Ot T81.31XA DISRUPTION OF EXTERNAL OPERATION (SURGIC 12/09/2017 TRACY CINTRON MD, Ot Z93.3 COLOSTOMY STATUS 12/09/2017 TRACY CINTRON MD, Ot C20 MALIGNANT NEOPLASM OF RECTUM 12/09/2017 TRACY CINTRON MD, Ot L98.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 12/09/2017 TRACY CINTRON MD, Ot T81.31XA DISRUPTION OF EXTERNAL OPERATION (SURGIC 12/09/2017 TRACY CINTRON MD, Ot Z93.3 COLOSTOMY STATUS 12/09/2017 TRACY CINTRON MD Ot C20 MALIGNANT NEOPLASM OF RECTUM 12/09/2017 TRACY CINTRON MD, Ot L98.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 12/09/2017 TRACY CINTRON MD Ot T81.31XA DISRUPTION OF EXTERNAL OPERATION (SURGIC 12/09/2017 TRACY CINTRON MD Ot Z93.3 COLOSTOMY STATUS 12/09/2017 TRACY CINTRON MD Ot Z48.01 ENCOUNTER FOR CHANGE OR REMOVAL OF SURGI 12/09/2017 TRACY CINTRON MD Ot C20 MALIGNANT NEOPLASM OF RECTUM 12/09/2017 TRACY CINTRON MD Ot L98.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 12/09/2017 TRACY CINTRON MD, Ot T81.31XA DISRUPTION OF EXTERNAL OPERATION (SURGIC 12/09/2017 TRACY CINTRON MD Ot Z93.3 COLOSTOMY STATUS 12/09/2017 TRACY CINTRON MD, Ot C20 MALIGNANT NEOPLASM OF RECTUM 12/09/2017 TRACY CINTRON MD Ot L98.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 12/09/2017 TRACY CINTRON MD Ot T81.31XA DISRUPTION OF EXTERNAL OPERATION (SURGIC 12/09/2017 TRACY CINTRON MD Ot Z93.3 COLOSTOMY STATUS 12/09/2017 TRACY CINTRON MD Ot C20 MALIGNANT NEOPLASM OF RECTUM 12/09/2017 TRACY CINTRON MD Ot L98.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 12/09/2017 TRACY CINTRON MD Ot T81.31XA DISRUPTION OF EXTERNAL OPERATION (SURGIC 12/09/2017 TRACY CINTRON MD Ot Z93.3 COLOSTOMY STATUS 12/09/2017 TRACY CINTRON MD, Ot C20 MALIGNANT NEOPLASM OF RECTUM 12/09/2017 TRACY CINTRON MD, Ot 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, 12/09/2017 TRACY CINTRON MD Ot L98.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 12/09/2017 TRACY CINTRON MD Ot T81.31XA DISRUPTION OF EXTERNAL OPERATION (SURGIC 12/09/2017 TRACY CINTRON MD Ot Z93.3 COLOSTOMY STATUS 12/09/2017 TRACY CINTRON MD Ot C20 MALIGNANT NEOPLASM OF RECTUM 12/09/2017 TRACY CINTRON MD, Ot 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, 12/09/2017 TRACY CINTRON MD, Ot L98.491 NON-PRS CHRONIC ULCER SKIN/ SITES LIMITE 12/09/2017 TRACY CINTRON MD, Ot T81.31XA DISRUPTION OF EXTERNAL OPERATION (SURGIC 12/09/2017 TRACY CINTRON MD, Ot Z93.3 COLOSTOMY STATUS 12/27/2017 TOREY ELMORE N Ot C20 MALIGNANT NEOPLASM OF RECTUM 12/27/2017 TOREY ELMORE Ot Z45.2 ENCOUNTER FOR ADJUSTMENT AND MANAGEMENT 12/28/2017 TOREY ELMORE N Ot C20 MALIGNANT NEOPLASM OF RECTUM 12/28/2017 TOREY ELMORE Ot Z45.2 ENCOUNTER FOR ADJUSTMENT AND MANAGEMENT 01/02/2018 TOREY ELMORE N Ot C20 MALIGNANT NEOPLASM OF RECTUM 01/02/2018 TOREY ELMORE Ot Z45.2 ENCOUNTER FOR ADJUSTMENT AND MANAGEMENT 05/02/2018 TOREY ELMORE Ot C20 MALIGNANT NEOPLASM OF RECTUM 05/02/2018 TOREY ELMORE Ot Z45.2 ENCOUNTER FOR ADJUSTMENT AND MANAGEMENT 05/23/2018 ANGELICA BRITTON DO D Ot C20 MALIGNANT NEOPLASM OF RECTUM 05/23/2018 TRACY CINTRON MD, Ot C20 MALIGNANT NEOPLASM OF RECTUM 05/23/2018 TRACY CINTRON MD, Ot L98.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 05/23/2018 TRACY CINTRON MD, Ot T81.31XA DISRUPTION OF EXTERNAL OPERATION (SURGIC 05/23/2018 TRACY CINTRON MD, Ot Z93.3 COLOSTOMY STATUS 05/23/2018 TOREY ELMORE N Ot C20 MALIGNANT NEOPLASM OF RECTUM 05/23/2018 TOREY ELMORE Ot Z45.2 ENCOUNTER FOR ADJUSTMENT AND MANAGEMENT 05/23/2018 TOREY ELMORE N Ot C20 MALIGNANT NEOPLASM OF RECTUM 05/23/2018 TOREY ELMORE Ot Z45.2 ENCOUNTER FOR ADJUSTMENT AND MANAGEMENT 05/23/2018 ANGELICA BRITTON DO D Ot C18.9 MALIGNANT NEOPLASM OF COLON, UNSPECIFIED 05/23/2018 RAF BRITTON DOTT D Ot C20 MALIGNANT NEOPLASM OF RECTUM 05/23/2018 TRACY CINTRON MD, Ot C20 MALIGNANT NEOPLASM OF RECTUM 05/23/2018 TRACY CINTRON MD, Ot L98.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 05/23/2018 TRACY CINTRON MD Ot T81.31XA DISRUPTION OF EXTERNAL OPERATION (SURGIC 05/23/2018 TRACY CINTRON MD Ot Z93.3 COLOSTOMY STATUS 05/23/2018 TRACY CINTRON MD Ot C20 MALIGNANT NEOPLASM OF RECTUM 05/23/2018 TRACY CINTRON MD Ot L98.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 05/23/2018 TRACY CINTRON MD Ot T81.31XA DISRUPTION OF EXTERNAL OPERATION (SURGIC 05/23/2018 TRACY CINTRON MD Ot Z93.3 COLOSTOMY STATUS 05/23/2018 TRACY CINTRON MD Ot C20 MALIGNANT NEOPLASM OF RECTUM 05/23/2018 TRACY CINTRON MD Ot L98.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 05/23/2018 TRACY CINTRON MD Ot T81.31XA DISRUPTION OF EXTERNAL OPERATION (SURGIC 05/23/2018 TRACY CINTRON MD Ot Z93.3 COLOSTOMY STATUS 05/23/2018 TRACY CINTRON MD Ot C20 MALIGNANT NEOPLASM OF RECTUM 05/23/2018 TRACY CINTRON MD Ot L98.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 05/23/2018 TRACY CINTRON MD Ot T81.31XA DISRUPTION OF EXTERNAL OPERATION (SURGIC 05/23/2018 TRACY CINTRON MD Ot Z93.3 COLOSTOMY STATUS 05/23/2018 TRACY CINTRON MD Ot C20 MALIGNANT NEOPLASM OF RECTUM 05/23/2018 TRACY CINTRON MD Ot L98.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 05/23/2018 TRACY CINTRON MD Ot T81.31XA DISRUPTION OF EXTERNAL OPERATION (SURGIC 05/23/2018 TRACY CINTRON MD Ot Z93.3 COLOSTOMY STATUS 05/23/2018 TRACY CINTRON MD Ot Z48.01 ENCOUNTER FOR CHANGE OR REMOVAL OF SURGI 05/23/2018 TRACY CINTRON MD Ot C20 MALIGNANT NEOPLASM OF RECTUM 05/23/2018 TRACY CINTRON MD Ot L98.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 05/23/2018 TRACY CINTRON MD Ot T81.31XA DISRUPTION OF EXTERNAL OPERATION (SURGIC 05/23/2018 TRACY CINTRON MD, Ot Z93.3 COLOSTOMY STATUS 05/23/2018 TRACY CINTRON MD, Ot C20 MALIGNANT NEOPLASM OF RECTUM 05/23/2018 TRACY CINTRON MD, Ot L98.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 05/23/2018 TRACY CINTRON MD, Ot T81.31XA DISRUPTION OF EXTERNAL OPERATION (SURGIC 05/23/2018 TRACY CINTRON MD, Ot Z93.3 COLOSTOMY STATUS 05/23/2018 TRACY CINTRON MD, Ot C20 MALIGNANT NEOPLASM OF RECTUM 05/23/2018 TRACY CINTRON MD, Ot L98.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 05/23/2018 TRACY CINTRON MD, Ot T81.31XA DISRUPTION OF EXTERNAL OPERATION (SURGIC 05/23/2018 TRACY CINTRON MD, Ot Z93.3 COLOSTOMY STATUS 05/23/2018 TRACY CINTRON MD, Ot C20 MALIGNANT NEOPLASM OF RECTUM 05/23/2018 TRACY CINTRON MD, Ot 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, 05/23/2018 TRACY CINTRON MD, Ot L98.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 05/23/2018 TRACY CINTRON MD, Ot T81.31XA DISRUPTION OF EXTERNAL OPERATION (SURGIC 05/23/2018 TRACY CINTRON MD, Ot Z93.3 COLOSTOMY STATUS 05/23/2018 TRACY CINTRON MD, Ot C20 MALIGNANT NEOPLASM OF RECTUM 05/23/2018 TRACY CINTRON MD, Ot 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, 05/23/2018 TRACY CINTRON MD, Ot L98.491 NON-PRS CHRONIC ULCER SKIN/ SITES LIMITE 05/23/2018 TRACY CINTRON MD, Ot T81.31XA DISRUPTION OF EXTERNAL OPERATION (SURGIC 05/23/2018 TRACY CINTRON MD, Ot Z93.3 COLOSTOMY STATUS 05/23/2018 TOREY ELMORE Ot C20 MALIGNANT NEOPLASM OF RECTUM 05/23/2018 TOREY ELMORE Ot Z45.2 ENCOUNTER FOR ADJUSTMENT AND MANAGEMENT 05/23/2018 ANGELICA BRITTON DO Ot C18.9 MALIGNANT NEOPLASM OF COLON, UNSPECIFIED 05/23/2018 ANGELICA BRITTON DO Ot C20 MALIGNANT NEOPLASM OF RECTUM 05/23/2018 SAIDA MD, TRACY G Ot C20 MALIGNANT NEOPLASM OF RECTUM 05/23/2018 TRACY CINTRON MD Ot L98.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 05/23/2018 TRACY CINTRON MD Ot T81.31XA DISRUPTION OF EXTERNAL OPERATION (SURGIC 05/23/2018 TRACY CINTRON MD Ot Z93.3 COLOSTOMY STATUS 05/23/2018 TRACY CINTRON MD Ot C20 MALIGNANT NEOPLASM OF RECTUM 05/23/2018 TRACY CINTRON MD Ot L98.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 05/23/2018 TRACY CINTRON MD Ot T81.31XA DISRUPTION OF EXTERNAL OPERATION (SURGIC 05/23/2018 TRACY CINTRON MD Ot Z93.3 COLOSTOMY STATUS 05/23/2018 TRACY CINTRON MD, Ot C20 MALIGNANT NEOPLASM OF RECTUM 05/23/2018 TRACY CINTRON MD, Ot L98.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 05/23/2018 TRACY CINTRON MD, Ot T81.31XA DISRUPTION OF EXTERNAL OPERATION (SURGIC 05/23/2018 TRACY CINTRON MD Ot Z93.3 COLOSTOMY STATUS 05/23/2018 TRACY CINTRON MD Ot C20 MALIGNANT NEOPLASM OF RECTUM 05/23/2018 TRACY CINTRON MD Ot L98.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 05/23/2018 TRACY CINTRON MD, Ot T81.31XA DISRUPTION OF EXTERNAL OPERATION (SURGIC 05/23/2018 TRACY CINTRON MD Ot Z93.3 COLOSTOMY STATUS 05/23/2018 TRACY CINTRON MD, Ot C20 MALIGNANT NEOPLASM OF RECTUM 05/23/2018 TRACY CINTRON MD Ot L98.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 05/23/2018 TRACY CINTRON MD Ot T81.31XA DISRUPTION OF EXTERNAL OPERATION (SURGIC 05/23/2018 TRACY CINTRON MD Ot Z93.3 COLOSTOMY STATUS 05/23/2018 TRACY CINTRON MD Ot Z48.01 ENCOUNTER FOR CHANGE OR REMOVAL OF SURGI 05/23/2018 TRACY CINTRON MD Ot C20 MALIGNANT NEOPLASM OF RECTUM 05/23/2018 TRACY CINTRON MD Ot L98.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 05/23/2018 TRACY CINTRON MD Ot T81.31XA DISRUPTION OF EXTERNAL OPERATION (SURGIC 05/23/2018 TRACY CINTRON MD, Ot Z93.3 COLOSTOMY STATUS 05/23/2018 TRACY CINTRON MD, Ot C20 MALIGNANT NEOPLASM OF RECTUM 05/23/2018 TRACY CINTRON MD, Ot L98.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 05/23/2018 TRACY CINTRON MD, Ot T81.31XA DISRUPTION OF EXTERNAL OPERATION (SURGIC 05/23/2018 TRACY CINTRON MD, Ot Z93.3 COLOSTOMY STATUS 05/23/2018 TRACY CINTRON MD, Ot C20 MALIGNANT NEOPLASM OF RECTUM 05/23/2018 TRACY CINTRON MD, Ot L98.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 05/23/2018 TRACY CINTRON MD, Ot T81.31XA DISRUPTION OF EXTERNAL OPERATION (SURGIC 05/23/2018 TRACY CINTRON MD, Ot Z93.3 COLOSTOMY STATUS 05/23/2018 TRACY CINTRON MD, Ot C20 MALIGNANT NEOPLASM OF RECTUM 05/23/2018 TRACY CINTRON MD, Ot 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, 05/23/2018 TRACY CINTRON MD, Ot L98.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 05/23/2018 TRACY CINTRON MD, Ot T81.31XA DISRUPTION OF EXTERNAL OPERATION (SURGIC 05/23/2018 TRACY CINTRON MD, Ot Z93.3 COLOSTOMY STATUS 05/23/2018 TRACY CINTRON MD, Ot C20 MALIGNANT NEOPLASM OF RECTUM 05/23/2018 TRACY CINTRON MD, Ot 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, 05/23/2018 TRACY CINTRON MD, Ot L98.491 NON-PRS CHRONIC ULCER SKIN/ SITES LIMITE 05/23/2018 TRACY CINTRON MD, Ot T81.31XA DISRUPTION OF EXTERNAL OPERATION (SURGIC 05/23/2018 TRACY CINTRON MD, Ot Z93.3 COLOSTOMY STATUS 05/23/2018 TOREY ELMORE Ot C20 MALIGNANT NEOPLASM OF RECTUM 05/23/2018 TOREY ELMORE Ot Z45.2 ENCOUNTER FOR ADJUSTMENT AND MANAGEMENT 05/23/2018 ANGELICA BRITTON DO Ot C20 MALIGNANT NEOPLASM OF RECTUM 05/23/2018 TRACY CINTRON MD, Ot C20 MALIGNANT NEOPLASM OF RECTUM 05/23/2018 TRACY CINTRON MD, Ot L98.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 05/23/2018 TRACY CINTRON MD, Ot T81.31XA DISRUPTION OF EXTERNAL OPERATION (SURGIC 05/23/2018 TRACY CINTRON MD, Ot Z93.3 COLOSTOMY STATUS 05/23/2018 TOREY ELMORE Emilia Ot C20 MALIGNANT NEOPLASM OF RECTUM 05/23/2018 RAMÍREZTOREY KHAN Emilia Ot Z45.2 ENCOUNTER FOR ADJUSTMENT AND MANAGEMENT 05/23/2018 RAMÍREZTOREY Ot C20 MALIGNANT NEOPLASM OF RECTUM 05/23/2018 RAMÍREZTOREY Ot Z45.2 ENCOUNTER FOR ADJUSTMENT AND MANAGEMENT 05/24/2018 BARNES HILAH S EVS MANAGER Ot C20 MALIGNANT NEOPLASM OF RECTUM 05/24/2018 BARNES HILAH S EVS MANAGER Ot N13.30 UNSPECIFIED HYDRONEPHROSIS 05/24/2018 BARNES, HILAH S EVS MANAGER Ot Z98.890 OTHER SPECIFIED POSTPROCEDURAL STATES 06/03/2018 BARNES HILAH S EVS MANAGER Ot C20 MALIGNANT NEOPLASM OF RECTUM 06/03/2018 BARNES HILAH S EVS MANAGER Ot N13.30 UNSPECIFIED HYDRONEPHROSIS 06/03/2018 BARNES HILAH S EVS MANAGER Ot Z98.890 OTHER SPECIFIED POSTPROCEDURAL STATES 06/04/2018 RAMÍREZ TOREY Nieto Ot C20 MALIGNANT NEOPLASM OF RECTUM 06/04/2018 RAMÍREZ ELISABETHANS Nieto Ot Z45.2 ENCOUNTER FOR ADJUSTMENT AND MANAGEMENT 07/19/2018 ANGELICA BRITTON DO Ot C18.9 MALIGNANT NEOPLASM OF COLON, UNSPECIFIED 07/19/2018 ANGELICA BRITTON DO Ot C20 MALIGNANT NEOPLASM OF RECTUM 07/19/2018 TRACY CINTRON MD, Ot C20 MALIGNANT NEOPLASM OF RECTUM 07/19/2018 TRACY CINTRON MD, Ot L98.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 07/19/2018 TRACY CINTRON MD, Ot T81.31XA DISRUPTION OF EXTERNAL OPERATION (SURGIC 07/19/2018 TRACY CINTRON MD, Ot Z93.3 COLOSTOMY STATUS 07/19/2018 TRACY CINTRON MD, Ot C20 MALIGNANT NEOPLASM OF RECTUM 07/19/2018 TRACY CINTRON MD Ot L98.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 07/19/2018 TRACY CINTRON MD, Ot T81.31XA DISRUPTION OF EXTERNAL OPERATION (SURGIC 07/19/2018 TRACY CINTRON MD Ot Z93.3 COLOSTOMY STATUS 07/19/2018 TRACY CINTRON MD Ot C20 MALIGNANT NEOPLASM OF RECTUM 07/19/2018 TRACY CINTRON MD Ot L98.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 07/19/2018 TRACY CINTRON MD Ot T81.31XA DISRUPTION OF EXTERNAL OPERATION (SURGIC 07/19/2018 TRACY CINTRON MD Ot Z93.3 COLOSTOMY STATUS 07/19/2018 TRACY CINTRON MD Ot C20 MALIGNANT NEOPLASM OF RECTUM 07/19/2018 TRACY CINTRON MD Ot L98.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 07/19/2018 TRACY CINTRON MD, Ot T81.31XA DISRUPTION OF EXTERNAL OPERATION (SURGIC 07/19/2018 TRACY CINTRON MD Ot Z93.3 COLOSTOMY STATUS 07/19/2018 TRACY CINTRON MD Ot C20 MALIGNANT NEOPLASM OF RECTUM 07/19/2018 TRACY CINTRON MD Ot L98.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 07/19/2018 TRACY CINTRON MD Ot T81.31XA DISRUPTION OF EXTERNAL OPERATION (SURGIC 07/19/2018 TRACY CINTRON MD Ot Z93.3 COLOSTOMY STATUS 07/19/2018 TRACY CINTRON MD Ot Z48.01 ENCOUNTER FOR CHANGE OR REMOVAL OF SURGI 07/19/2018 TRACY CINTRON MD Ot C20 MALIGNANT NEOPLASM OF RECTUM 07/19/2018 TRACY CINTRON MD Ot L98.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 07/19/2018 TRACY CINTRON MD Ot T81.31XA DISRUPTION OF EXTERNAL OPERATION (SURGIC 07/19/2018 TRACY CINTRON MD Ot Z93.3 COLOSTOMY STATUS 07/19/2018 TRACY CINTRON MD Ot C20 MALIGNANT NEOPLASM OF RECTUM 07/19/2018 TRACY CINTRON MD Ot L98.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 07/19/2018 TRACY CINTRON MD Ot T81.31XA DISRUPTION OF EXTERNAL OPERATION (SURGIC 07/19/2018 TRACY CINTRON MD Ot Z93.3 COLOSTOMY STATUS 07/19/2018 TRACY CINTRON MD Ot C20 MALIGNANT NEOPLASM OF RECTUM 07/19/2018 TRACY CINTRON MD, Ot L98.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 07/19/2018 TRACY CINTRON MD, Ot T81.31XA DISRUPTION OF EXTERNAL OPERATION (SURGIC 07/19/2018 TRACY CINTRON MD, Ot Z93.3 COLOSTOMY STATUS 07/19/2018 TRACY CINTRON MD, Ot C20 MALIGNANT NEOPLASM OF RECTUM 07/19/2018 TRACY CINTRON MD, Ot 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, 07/19/2018 TRACY CINTRON MD, Ot L98.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 07/19/2018 TRACY CINTRON MD, Ot T81.31XA DISRUPTION OF EXTERNAL OPERATION (SURGIC 07/19/2018 TRACY CINTRON MD, Ot Z93.3 COLOSTOMY STATUS 07/19/2018 TRACY CINTRON MD, Ot C20 MALIGNANT NEOPLASM OF RECTUM 07/19/2018 TRACY CINTRON MD, Ot 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, 07/19/2018 TRACY CINTRON MD, Ot L98.491 NON-PRS CHRONIC ULCER SKIN/ SITES LIMITE 07/19/2018 TRACY CINTRON MD, Ot T81.31XA DISRUPTION OF EXTERNAL OPERATION (SURGIC 07/19/2018 TRACY CINTRON MD, Ot Z93.3 COLOSTOMY STATUS 07/19/2018 TOREY ELMORE Ot C20 MALIGNANT NEOPLASM OF RECTUM 07/20/2018 ANGELICA BRITTON DO Ot Z01.818 ENCOUNTER FOR OTHER PREPROCEDURAL EXAMIN 07/20/2018 ANGELICA BRITTON DO Ot Z01.818 ENCOUNTER FOR OTHER PREPROCEDURAL EXAMIN 07/20/2018 ANGELICA BRITTON DO Ot Z01.818 ENCOUNTER FOR OTHER PREPROCEDURAL EXAMIN Procedures Code Description Performed By Performed On [id number] BYPASS ILEUM TO CUTANEOUS , OPEN APPROACH 11/16/2016 [id number] EXCISION OF SIGMOID COLON , OPEN APPROACH 11/16/2016 [id number] EXCISION OF RECTUM, OPEN APPROACH 11/16/2016 [id number] EXCISION OF ILEUM, OPEN APPROACH 08/12/2017 Results Test Result Range Methicillin resistant Staphylococcus aureus (MRSA) screening culture - 13:40 Methicillin resistant Staphylococcus aureus (MRSA) screening culture NEG NRG Blood type T Indirect antibody screen panel - 11/16/16 07:58 ABO+Rh group OP NR Transfusion band number [id number] NR Blood group antibody screen NEGATIVE [facility] Automated blood complete blood count (hemogram) panel - 11/17/16 04:34 Blood leukocytes automated count (number/volume) 8.2 10*3/uL 4.3-11.0 Blood erythrocytes automated count (number/volume) 3.79 10*6/uL 4.35-5.85 Venous blood hemoglobin measurement (mass/volume) 11.2 g/dL 13.3-17.7 Blood hematocrit (volume fraction) 35 % 40-54 Automated erythrocyte mean corpuscular volume 92 [foz_us] 80-99 Automated erythrocyte mean corpuscular hemoglobin (mass per erythrocyte) 30 pg 25-34 Automated erythrocyte mean corpuscular hemoglobin concentration measurement ( mass/volume) 32 g/dL 32-36 Automated erythrocyte distribution width ratio 16.7 % 10.0-14.5 Automated blood platelet count (count/volume) 211 10*3/uL 130-400 Automated blood platelet mean volume measurement 10.4 [foz_us] 7.4-10.4 Comprehensive metabolic panel - 11/17/16 04:34 Serum or plasma sodium measurement (moles/volume) 137 mmol/L 135-145 Serum or plasma potassium measurement (moles/volume) 4.5 mmol/L 3.6-5.0 Serum or plasma chloride measurement (moles/volume) 106 mmol/L 98-107 Carbon dioxide 19 mmol/L 21-32 Serum or plasma anion gap determination (moles/volume) 12 mmol/L 5-14 Serum or plasma urea nitrogen measurement (mass/volume) 14 mg/dL 7-18 Serum or plasma creatinine measurement (mass/volume) 1.15 mg/dL 0.60-1.30 Serum or plasma urea nitrogen/creatinine mass ratio 12 NRG Serum or plasma creatinine measurement with calculation of estimated glomerular filtration rate > NRG Serum or plasma glucose measurement (mass/volume) 117 mg/dL 70-105 Serum or plasma calcium measurement (mass/volume) 7.8 mg/dL 8.5-10.1 Serum or plasma total bilirubin measurement (mass/volume) 0.6 mg/dL 0.1-1.0 Serum or plasma alkaline phosphatase measurement (enzymatic activity/volume) 53 U/L 40-136 Serum or plasma aspartate aminotransferase measurement (enzymatic activity/ volume) 18 U/L 5-34 Serum or plasma alanine aminotransferase measurement (enzymatic activity/volume ) 17 U/L 0-55 Serum or plasma protein measurement (mass/volume) 6.1 g/dL 6.4-8.2 Serum or plasma albumin measurement (mass/volume) 3.2 g/dL 3.2-4.5 Serum or plasma phosphate measurement (mass/volume) - 11/17/16 04:34 Serum or plasma phosphate measurement (mass/volume) 4.6 mg/dL 2.3-4.7 Magnesium - 11/17/16 04:34 Magnesium 1.5 mg/dL 1.8-2.4 Automated blood complete blood count (hemogram) panel - 11/18/16 18:00 Blood leukocytes automated count (number/volume) 6.5 10*3/uL 4.3-11.0 Blood erythrocytes automated count (number/volume) 3.31 10*6/uL 4.35-5.85 Venous blood hemoglobin measurement (mass/volume) 9.8 g/dL 13.3-17.7 Blood hematocrit (volume fraction) 31 % 40-54 Automated erythrocyte mean corpuscular volume 92 [foz_us] 80-99 Automated erythrocyte mean corpuscular hemoglobin (mass per erythrocyte) 30 pg 25-34 Automated erythrocyte mean corpuscular hemoglobin concentration measurement ( mass/volume) 32 g/dL 32-36 Automated erythrocyte distribution width ratio 16.0 % 10.0-14.5 Automated blood platelet count (count/volume) 185 10*3/uL 130-400 Automated blood platelet mean volume measurement 10.4 [foz_us] 7.4-10.4 Whole blood basic metabolic panel - 11/18/16 18:00 Serum or plasma sodium measurement (moles/volume) 135 mmol/L 135-145 Serum or plasma potassium measurement (moles/volume) 3.5 mmol/L 3.6-5.0 Serum or plasma chloride measurement (moles/volume) 105 mmol/L 98-107 Carbon dioxide 22 mmol/L 21-32 Serum or plasma anion gap determination (moles/volume) 8 mmol/L 5-14 Serum or plasma urea nitrogen measurement (mass/volume) 12 mg/dL 7-18 Serum or plasma creatinine measurement (mass/volume) 0.93 mg/dL 0.60-1.30 Serum or plasma urea nitrogen/creatinine mass ratio 13 NRG Serum or plasma creatinine measurement with calculation of estimated glomerular filtration rate > NRG Serum or plasma glucose measurement (mass/volume) 118 mg/dL 70-105 Serum or plasma calcium measurement (mass/volume) 7.8 mg/dL 8.5-10.1 Magnesium - 11/18/16 18:00 Magnesium 1.6 mg/dL 1.8-2.4 Automated blood complete blood count (hemogram) panel - 11/19/16 05:07 Blood leukocytes automated count (number/volume) 4.6 10*3/uL 4.3-11.0 Blood erythrocytes automated count (number/volume) 2.89 10*6/uL 4.35-5.85 Venous blood hemoglobin measurement (mass/volume) 8.6 g/dL 13.3-17.7 Blood hematocrit (volume fraction) 27 % 40-54 Automated erythrocyte mean corpuscular volume 92 [foz_us] 80-99 Automated erythrocyte mean corpuscular hemoglobin (mass per erythrocyte) 30 pg 25-34 Automated erythrocyte mean corpuscular hemoglobin concentration measurement ( mass/volume) 32 g/dL 32-36 Automated erythrocyte distribution width ratio 15.7 % 10.0-14.5 Automated blood platelet count (count/volume) 158 10*3/uL 130-400 Automated blood platelet mean volume measurement 11.1 [foz_us] 7.4-10.4 Whole blood basic metabolic panel - 11/19/16 05:07 Serum or plasma sodium measurement (moles/volume) 136 mmol/L 135-145 Serum or plasma potassium measurement (moles/volume) 3.6 mmol/L 3.6-5.0 Serum or plasma chloride measurement (moles/volume) 108 mmol/L 98-107 Carbon dioxide 19 mmol/L 21-32 Serum or plasma anion gap determination (moles/volume) 9 mmol/L 5-14 Serum or plasma urea nitrogen measurement (mass/volume) 9 mg/dL 7-18 Serum or plasma creatinine measurement (mass/volume) 0.78 mg/dL 0.60-1.30 Serum or plasma urea nitrogen/creatinine mass ratio 12 NRG Serum or plasma creatinine measurement with calculation of estimated glomerular filtration rate > NRG Serum or plasma glucose measurement (mass/volume) 98 mg/dL 70-105 Serum or plasma calcium measurement (mass/volume) 7.7 mg/dL 8.5-10.1 Magnesium - 11/19/16 05:07 Magnesium 1.8 mg/dL 1.8-2.4 Automated blood complete blood count (hemogram) panel - 11/20/16 06:20 Blood leukocytes automated count (number/volume) 3.9 10*3/uL 4.3-11.0 Blood erythrocytes automated count (number/volume) 2.89 10*6/uL 4.35-5.85 Venous blood hemoglobin measurement (mass/volume) 8.6 g/dL 13.3-17.7 Blood hematocrit (volume fraction) 26 % 40-54 Automated erythrocyte mean corpuscular volume 91 [foz_us] 80-99 Automated erythrocyte mean corpuscular hemoglobin (mass per erythrocyte) 30 pg 25-34 Automated erythrocyte mean corpuscular hemoglobin concentration measurement ( mass/volume) 33 g/dL 32-36 Automated erythrocyte distribution width ratio 15.4 % 10.0-14.5 Automated blood platelet count (count/volume) 184 10*3/uL 130-400 Automated blood platelet mean volume measurement 10.3 [foz_us] 7.4-10.4 Whole blood basic metabolic panel - 11/20/16 06:20 Serum or plasma sodium measurement (moles/volume) 139 mmol/L 135-145 Serum or plasma potassium measurement (moles/volume) 3.7 mmol/L 3.6-5.0 Serum or plasma chloride measurement (moles/volume) 107 mmol/L 98-107 Carbon dioxide 24 mmol/L 21-32 Serum or plasma anion gap determination (moles/volume) 8 mmol/L 5-14 Serum or plasma urea nitrogen measurement (mass/volume) 8 mg/dL 7-18 Serum or plasma creatinine measurement (mass/volume) 0.78 mg/dL 0.60-1.30 Serum or plasma urea nitrogen/creatinine mass ratio 10 NRG Serum or plasma creatinine measurement with calculation of estimated glomerular filtration rate > NRG Serum or plasma glucose measurement (mass/volume) 97 mg/dL 70-105 Serum or plasma calcium measurement (mass/volume) 8.3 mg/dL 8.5-10.1 Bacteria identification in isolate by anaerobe culture - 12/16/16 08:42 Bacteria identification in isolate by anaerobe culture [facility] Gram stain microscopy - 12/16/16 08:42 GRAM STAIN RESULT FEW WBC'S, NO BACTERIA OBSERVED NRG Bacteria identification in wound by culture - 12/16/16 08:42 Bacteria identification in wound by culture [id number] NR FREE TEXT EXTERNAL SENSITIVITIES REPORTED AT 0957, 12-19-16 NRG QUANTITY OF GROWTH Scant Growth NRG MRSA AGAR Screening test for MRSA is NEGATIVE (Final to follow) NR Bacterial susceptibility panel - 12/16/16 08:42 Oxacillin susceptibility test by minimum inhibitory concentration < = NRG Gentamicin susceptibility test by minimum inhibitory concentration < = NRG Clindamycin susceptibility test by minimum inhibitory concentration <= NRG Erythromycin susceptibility test by minimum inhibitory concentration <= NRG Trimethoprim/sulfamethoxazole susceptibility test by minimum inhibitoryconcentration <= NRG Vancomycin susceptibility test by minimum inhibitory concentration < = NRG Levofloxacin susceptibility test by minimum inhibitory concentration 0.5 NRG Rifampin susceptibility test by minimum inhibitory concentration <= NRG Tetracycline susceptibility test by minimum inhibitory concentration <= NRG Bacterial susceptibility panel - 12/16/16 08:42 Oxacillin susceptibility test by minimum inhibitory concentration < = NRG Gentamicin susceptibility test by minimum inhibitory concentration < = NRG Clindamycin susceptibility test by minimum inhibitory concentration <= NRG Erythromycin susceptibility test by minimum inhibitory concentration >= NRG Trimethoprim/sulfamethoxazole susceptibility test by minimum inhibitoryconcentration 160 NRG Vancomycin susceptibility test by minimum inhibitory concentration < = NRG Levofloxacin susceptibility test by minimum inhibitory concentration <= NRG Rifampin susceptibility test by minimum inhibitory concentration <= NRG Tetracycline susceptibility test by minimum inhibitory concentration <= NRG Methicillin resistant Staphylococcus aureus (MRSA) screening culture - 10:40 Methicillin resistant Staphylococcus aureus (MRSA) screening culture NEG NRG Bacteria identification in isolate by anaerobe culture - 01/04/17 10:40 Bacteria identification in isolate by anaerobe culture NOANA NRG Gram stain microscopy - 01/04/17 10:40 GRAM STAIN RESULT NO BACTERIA NRG Bacteria identification in wound by culture - 01/04/17 10:40 Bacteria identification in wound by culture [id number] NR FREE TEXT EXTERNAL SENSITIVITIES REPORTED AT 1107, 01-09-17 NRG QUANTITY OF GROWTH Scant Growth NRG MRSA AGAR Screening test for MRSA is NEGATIVE (Final to follow) NR FREE TEXT ENTRY 2 FOR SUSCEPTIBILITY TESTING 01/06/17 NR Bacterial susceptibility panel - 01/04/17 10:40 Oxacillin susceptibility test by minimum inhibitory concentration < = NRG Gentamicin susceptibility test by minimum inhibitory concentration < = NRG Clindamycin susceptibility test by minimum inhibitory concentration <= NRG Erythromycin susceptibility test by minimum inhibitory concentration <= NRG Trimethoprim/sulfamethoxazole susceptibility test by minimum inhibitoryconcentration <= NRG Vancomycin susceptibility test by minimum inhibitory concentration < = NRG Levofloxacin susceptibility test by minimum inhibitory concentration 0.5 NRG Rifampin susceptibility test by minimum inhibitory concentration <= NRG Tetracycline susceptibility test by minimum inhibitory concentration <= NRG Bacterial susceptibility panel - 01/04/17 10:40 Oxacillin susceptibility test by minimum inhibitory concentration > = NRG Gentamicin susceptibility test by minimum inhibitory concentration < = NRG Clindamycin susceptibility test by minimum inhibitory concentration >= NRG Erythromycin susceptibility test by minimum inhibitory concentration >= NRG Trimethoprim/sulfamethoxazole susceptibility test by minimum inhibitoryconcentration 160 NRG Vancomycin susceptibility test by minimum inhibitory concentration 1 NRG Levofloxacin susceptibility test by minimum inhibitory concentration <= NRG Rifampin susceptibility test by minimum inhibitory concentration <= NRG Tetracycline susceptibility test by minimum inhibitory concentration <= NRG Methicillin resistant Staphylococcus aureus (MRSA) screening culture - 08:10 Methicillin resistant Staphylococcus aureus (MRSA) screening culture NEG NRG Complete blood count (CBC) with automated white blood cell (WBC) differential - 08/12/17 08:20 Blood leukocytes automated count (number/volume) 3.7 10*3/uL 4.3-11.0 Blood erythrocytes automated count (number/volume) 3.74 10*6/uL 4.35-5.85 Venous blood hemoglobin measurement (mass/volume) 12.8 g/dL 13.3-17.7 Blood hematocrit (volume fraction) 36 % 40-54 Automated erythrocyte mean corpuscular volume 97 [foz_us] 80-99 Automated erythrocyte mean corpuscular hemoglobin (mass per erythrocyte) 34 pg 25-34 Automated erythrocyte mean corpuscular hemoglobin concentration measurement ( mass/volume) 35 g/dL 32-36 Automated erythrocyte distribution width ratio 12.3 % 10.0-14.5 Automated blood platelet count (count/volume) 178 10*3/uL 130-400 Automated blood platelet mean volume measurement 11.2 [foz_us] 7.4-10.4 Automated blood neutrophils/100 leukocytes 63 % 42-75 Automated blood lymphocytes/100 leukocytes 17 % 12-44 Blood monocytes/100 leukocytes 14 % 0-12 Automated blood eosinophils/100 leukocytes 5 % 0-10 Automated blood basophils/100 leukocytes 0 % 0-10 Blood neutrophils automated count (number/volume) 2.3 10*3 1.8-7.8 Blood lymphocytes automated count (number/volume) 0.6 10*3 1.0-4.0 Blood monocytes automated count (number/volume) 0.5 10*3 0.0-1.0 Automated eosinophil count 0.2 10*3/uL 0.0-0.3 Automated blood basophil count (count/volume) 0.0 10*3/uL 0.0-0.1 Automated blood complete blood count (hemogram) panel - 08/14/17 11:20 Blood leukocytes automated count (number/volume) 7.1 10*3/uL 4.3-11.0 Blood erythrocytes automated count (number/volume) 3.70 10*6/uL 4.35-5.85 Venous blood hemoglobin measurement (mass/volume) 12.6 g/dL 13.3-17.7 Blood hematocrit (volume fraction) 36 % 40-54 Automated erythrocyte mean corpuscular volume 96 [foz_us] 80-99 Automated erythrocyte mean corpuscular hemoglobin (mass per erythrocyte) 34 pg 25-34 Automated erythrocyte mean corpuscular hemoglobin concentration measurement ( mass/volume) 35 g/dL 32-36 Automated erythrocyte distribution width ratio 12.0 % 10.0-14.5 Automated blood platelet count (count/volume) 182 10*3/uL 130-400 Automated blood platelet mean volume measurement 10.7 [foz_us] 7.4-10.4 Comprehensive metabolic panel - 08/14/17 11:20 Serum or plasma sodium measurement (moles/volume) 138 mmol/L 135-145 Serum or plasma potassium measurement (moles/volume) 4.1 mmol/L 3.6-5.0 Serum or plasma chloride measurement (moles/volume) 106 mmol/L 98-107 Carbon dioxide 23 mmol/L 21-32 Serum or plasma anion gap determination (moles/volume) 9 mmol/L 5-14 Serum or plasma urea nitrogen measurement (mass/volume) 11 mg/dL 7-18 Serum or plasma creatinine measurement (mass/volume) 0.88 mg/dL 0.60-1.30 Serum or plasma urea nitrogen/creatinine mass ratio 13 NRG Serum or plasma creatinine measurement with calculation of estimated glomerular filtration rate > NRG Serum or plasma glucose measurement (mass/volume) 104 mg/dL 70-105 Serum or plasma calcium measurement (mass/volume) 8.3 mg/dL 8.5-10.1 Serum or plasma total bilirubin measurement (mass/volume) 0.4 mg/dL 0.1-1.0 Serum or plasma alkaline phosphatase measurement (enzymatic activity/volume) 66 U/L 40-136 Serum or plasma aspartate aminotransferase measurement (enzymatic activity/ volume) 16 U/L 5-34 Serum or plasma alanine aminotransferase measurement (enzymatic activity/volume ) 18 U/L 0-55 Serum or plasma protein measurement (mass/volume) 6.3 g/dL 6.4-8.2 Serum or plasma albumin measurement (mass/volume) 3.4 g/dL 3.2-4.5 Encounters ACCT No. Visit Date/Time Discharge Status Pt. Type Provider Facility Loc./Unit Complaint [id number] 05/06/2017 08:25:01 ACT Unknown [id number] 07/20/2018 15:00:00 07/20/2018 15:16:00 DIS Outpatient ANGELICA BRITTON DO [facility] PREOP COLONOSCOPY [id number] 07/19/2018 09:42:00 07/19/2018 23:59:59 CLS Outpatient TOREY ELMORE [facility] ONC [id number] 05/23/2018 09:53:00 05/23/2018 23:59:59 CLS Outpatient KATELIN BARNES [facility] RAD ADENOCARCINOMA OF RECTUM [id number] 04/26/2018 08:50:00 05/02/2018 00:01:00 DIS Outpatient TOREY ELMORE [facility] ONC [id number] 12/21/2017 10:02:00 12/27/2017 00:01:00 DIS Outpatient TOREY ELMORE [facility] ONC [id number] 08/12/2017 07:35:00 08/15/2017 12:00:00 DIS Inpatient ANGELICA BRITTON DO [facility] 4TH RECTAL CANCER [id number] 08/10/2017 05:49:00 08/10/2017 10:37:00 DIS Outpatient ANGELICA BRITTON DO [facility] PREOP RECTAL CANCER [id number] 07/06/2017 10:07:00 08/02/2017 00:01:00 DIS Outpatient ELISABET ELMOREHANS Nieto [facility] ONC [id number] 07/20/2017 10:17:00 07/20/2017 13:25:00 DIS Outpatient ANGELICA BRITTON DO [facility] ENDO HX OF RECTAL CANCER [id number] 07/13/2017 05:37:00 07/13/2017 10:57:00 DIS Outpatient ANGELICA BRITTON DO [facility] PREOP COLONOSCOPY [id number] 04/27/2017 15:23:00 04/27/2017 00:01:00 DIS Outpatient RAMÍREZ TOREY Nieto [facility] ONC [id number] 01/27/2017 08:02:00 01/27/2017 23:59:59 CLS Outpatient TRACY CINTRON MD [facility] WOUNDCARE [id number] 01/20/2017 08:00:00 01/20/2017 23:59:59 CLS Outpatient TRACY CINTRON MD [facility] WOUNDCARE [id number] 01/11/2017 10:47:00 01/11/2017 23:59:59 CLS Outpatient TRACY CINTRON MD [facility] WOUNDCARE [id number] 01/04/2017 10:13:00 01/04/2017 23:59:59 CLS Outpatient TRACY CINTRON MD [facility] WOUNDCARE [id number] 01/01/2017 10:08:00 01/01/2017 23:59:59 CLS Outpatient TRACY CINTRON MD [facility] WOUNDCARE [id number] 12/30/2016 10:08:00 12/30/2016 23:59:59 CLS Outpatient TRACY CINTRON MD [facility] WOUNDCARE [id number] 12/28/2016 10:10:00 12/28/2016 23:59:59 CLS Outpatient TRACY CINTRON MD [facility] WOUNDCARE [id number] 12/25/2016 10:02:00 12/25/2016 23:59:59 CLS Outpatient TRACY CINTRON MD [facility] WOUNDCARE [id number] 12/24/2016 10:15:00 12/24/2016 16:40:00 DIS Outpatient ANGELICA BRITTON DO [facility] SDC RECTAL CA [id number] 12/23/2016 10:18:00 12/23/2016 23:59:59 CLS Outpatient TRACY CINTRON MD [facility] WOUNDCARE [id number] 12/15/2016 14:09:00 12/23/2016 09:41:00 DIS Outpatient TOREY ELMORE [facility] ONC [id number] 12/21/2016 15:01:00 12/21/2016 23:59:59 CLS Outpatient TRACY CINTRON MD [facility] WOUNDCARE [id number] 12/21/2016 12:10:00 12/21/2016 13:57:00 DIS Outpatient ANGELICA BRITTON DO [facility] PREOP PORT PLACEMENT [id number] 12/16/2016 07:56:00 12/16/2016 23:59:59 CLS Outpatient TRACY CINTRON MD [facility] WOUNDCARE [id number] 11/16/2016 07:22:00 11/20/2016 10:30:00 DIS Inpatient ANGELICA BRITTON DO [facility] 4TH COLON CANCER [id number] 10/12/2016 15:22:00 11/19/2016 00:01:00 DIS Outpatient TOREY ELMORE [facility] ONC [id number] 11/12/2016 13:18:00 11/12/2016 13:45:00 DIS Outpatient ANGELICA BRITTON DO [facility] PREOP COLON CANCER [id number] 11/05/2016 07:22:00 11/05/2016 10:05:00 DIS Outpatient ANGELICA BRITTON DO [facility] ENDO RECTAL CANCER [id number] 11/03/2016 05:42:00 11/03/2016 13:44:00 DIS Outpatient ANGELICA BRITTON DO [facility] PREOP RECTAL CANCER [id number] 08/21/2016 06:40:00 08/21/2016 23:59:59 CLS Outpatient ANGELICA BRITTON DO [facility] RAD RECTAL CA [id number] 08/21/2016 14:11:00 08/21/2016 16:00:00 DIS Outpatient ANGELICA BRITTON DO [facility] SDC RECTAL BLEEDING [id number] 08/18/2016 10:43:00 08/18/2016 23:59:59 CLS Outpatient ANGELICA BRITTON DO [facility] RAD RECTAL MASS [id number] 08/14/2016 11:07:00 08/14/2016 15:30:00 DIS Outpatient ANGELICA BRITTON DO [facility] ENDO SCREENING [id number] 08/13/2016 05:48:00 08/13/2016 15:09:00 DIS Outpatient ANGELICA BRITTON DO [facility] PREOP SCREENING [id number] 07/26/2018 09:40:00 PEN Preadmit ANGELICA BRITTON DO [facility] ENDO HX RECTAL CANCER [id number] 03/31/2016 10:48:00 03/31/2016 14:02:00 DIS Emergency JAVIER MARTINEZ [place] [facility] ENRIQUE ED l ear laceration
[2018-07-26 09:35] VITALS: BP 138/94
[2018-07-26] MEDS ORDERED: proPOfol 200 MG/20 ML (DIPRIVAN) VIAL IV ONE (10:04)
[2018-07-26] MEDS ORDERED: MIDAZOLAM 2 MG/2 ML (VERSED) VIAL ONE (10:04)
[2018-07-26 10:40] VITALS: BP 115/74
--- NOTE | 2018-07-26 10:44 | Progress Note-Post Operative ---
Post-Operative Progess Note Surgeon (s)/Tractor Trailer Driver (s) Surgeon ANGELICA BRITTON DO Tractor Trailer Driver: na Pre-Operative Diagnosis history rectal cancer Post-Operative Diagnosis transverse colon polyp, erythema at anastamosis Procedure & Operative Findings Date of Procedure 07/26/18 Procedure Performed/Findings colonoscopy c hot bx polypectomy and cold biopsies of anastomosis Anesthesia Type per mda Estimated Blood Loss Estimated blood loss (mL): scant Specimens/Packing Specimens Removed colon polyp transverse, anastomosis ANGELICA BRITTON DO Jul 26, 2018 10:44
--- NOTE | 2018-07-26 10:46 | Discharge Inst-Simple/Standard ---
Discharge Inst-Standard Patient Instructions/Follow Up Plan of Care/Instructions/FU: 2 weeks Kori Activity as Tolerated: Yes Discharge Diet: Regular Diet ANGELICA BRITTON DO Jul 26, 2018 10:46
[2018-07-26 11:10] VITALS: BP 124/86
[2018-07-26 11:25] VITALS: BP 124/86
--- NOTE | 2018-07-26 14:17 | Anesthesia-General Post-Op ---
MAC Patient Condition Mental Status/LOC: Same as Preop Cardiovascular: Satisfactory Nausea/Vomiting: Absent Respiratory: Satisfactory Pain: Controlled Complications: Absent Post Op Complications Complications None Follow Up Care/Instructions Patient Instructions None needed. Anesthesiology Discharge Order Discharge Order Patient is doing well, no complaints, stable vital signs, no apparent adverse anesthesia problems. No complications reported per nursing. RILEY SIMMS CRNA Jul 26, 2018 14:17
--- NOTE | 2018-07-26 16:06 | OPERATIVE REPORT ---
DATE OF SERVICE: 07/26/2018 PREOPERATIVE DIAGNOSIS: History of rectal cancer. POSTOPERATIVE DIAGNOSIS: History of rectal cancer. PROCEDURE: Colonoscopy with hot biopsy polypectomy, transverse colon and cold biopsies of the anastomosis. SURGEON: Angelica Sheikh DO ANESTHESIA: Per MDA. ESTIMATED BLOOD LOSS: Scant. COMPLICATIONS: None. INDICATIONS: The patient is a 62-year-old male with history of rectal cancer, radiation and chemo and low anterior resection. He understands risks and benefits of procedure and wished to proceed with procedure. Consent was signed on the chart. DESCRIPTION OF PROCEDURE: The patient was taken to the endoscopy suite, placed in left lateral recumbent position. Timeout was performed. Digital rectal exam was performed. There were no palpable polyps, masses or ulcerations. Scope was inserted into the rectum, advanced all the way to the cecum with minimal difficulty. Prep was adequate. Scope was then slowly retracted back. There were no polyps, masses or ulceration in the cecum and ascending colon. In the transverse colon, a small polyp was present to which hot biopsy with polypectomy was performed. Scope was continuously retracted back. No polyps, masses or ulcerations within the remainder of the transverse, descending and the remainder sigmoid colon. At the anastomosis, some slight erythematous changes were present. Cold biopsies of the anastomotic area were obtained. Scope was continuously retracted back. So, in the remainder of the rectum, multiple insertions and retractions made noting no other pathology. Scope was then slowly retracted until completely removed. The patient tolerated procedure well without any complications and taken to recovery room in stable condition. RECOMMENDATIONS: The patient will need repeat colonoscopy in 1 to 3 years depending on pathology. Job ID: [id number] DocumentID: [id number] Dictated Date: 07/26/2018 10:48:57 Microbiology Quality Control Technician Date: 07/26/2018 16:05:04 Dictated By: ANGELICA SHEIKH DO
== END 2018-07-26 11:15 | disposition home or self-care (01) ==
LOC: ENDO 09:01
PROVIDERS: ATTEND Surgery
DX: Z12.11 Encounter for screening for malignant neoplasm of colon (principal); D12.3 Benign neoplasm of transverse colon; K91.89 Other postprocedural complications and disorders of digestive system; Z85.048 Personal history of other malignant neoplasm of rectum, rectosigmoid junction, and anus; Z98.0 Intestinal bypass and anastomosis status; Z92.21 Personal history of antineoplastic chemotherapy; Z92.3 Personal history of irradiation

== ENCOUNTER 2018-09-06 11:06 | Outpatient (RCR) | payer OTHER ==
[2018-09-06 11:30] LABS: BASOPHILS % (AUTO) 1 % (0-10); EOSINOPHILS # (AUTO) 0.1 10^3/uL (0.0-0.3); EOSINOPHILS % (AUTO) 3 % (0-10); HEMATOCRIT 40 % (40-54); LYMPHOCYTES % (AUTO) 23 % (12-44); MEAN CORPUSCULAR HEMOGLOBIN 31 PG (25-34); MEAN CORPUSCULAR HGB CONC 35 G/DL (32-36); MEAN CORPUSCULAR VOLUME 88 FL (80-99); MONOCYTES # (AUTO) 0.4 X 10^3 (0.0-1.0); MONOCYTES % (AUTO) 9 % (0-12); NEUTROPHILS # (AUTO) 2.6 X 10^3 (1.8-7.8); NEUTROPHILS % (AUTO) 64 % (42-75); PLATELET COUNT 170 10^3/uL (130-400); RED CELL DISTRIBUTION WIDTH 12.3 % (10.0-14.5); WHITE BLOOD COUNT 4.1 10^3/uL (4.3-11.0)
[2018-09-06 11:46] LABS: ALANINE AMINOTRANSFERASE 33 U/L (0-55); ALKALINE PHOSPHATASE 85 U/L (40-136); BILIRUBIN,TOTAL 0.4 MG/DL (0.1-1.0); BUN/CREATININE RATIO 13; CALCIUM 8.6 MG/DL (8.5-10.1); CARBON DIOXIDE 24 MMOL/L (21-32); CHLORIDE 106 MMOL/L (98-107); CREATININE SERUM 1.12 MG/DL (0.60-1.30); GFR ESTIMATED > 60; GLUCOSE 98 MG/DL (70-105); POTASSIUM 4.2 MMOL/L (3.6-5.0); SODIUM 139 MMOL/L (135-145)
== END 2018-12-05 | disposition home or self-care (01) ==
LOC: ONC 11:06
PROVIDERS: ATTEND Internal Medicine Hematology & Oncology
DX: C20 Malignant neoplasm of rectum (principal); E66.9 Obesity, unspecified; Z68.32 Body mass index [BMI] 32.0-32.9, adult; Z92.21 Personal history of antineoplastic chemotherapy; Z92.3 Personal history of irradiation
CPT/HCPCS: 36591; 80053; 82378; 85025

== ENCOUNTER 2018-09-15 05:59 | Outpatient (CLI) | payer OTHER ==
[~2018-09-15] VITALS: Ht 188 cm; Wt 117.5 kg
== END 2018-09-15 15:20 | disposition home or self-care (01) ==
LOC: PREOP 05:59
PROVIDERS: ATTEND Surgery
DX: Z01.818 Encounter for other preprocedural examination (principal)

== ENCOUNTER 2018-09-22 09:45 | Day surgery (SDC) | payer OTHER ==
[2018-09-21 14:50] VITALS: BP 136/78
[2018-09-22] VITALS (7 sets, daily range): BP systolic 8–138; BP diastolic 70–84
[~2018-09-22] VITALS: Ht 188 cm; Wt 117.5 kg
[2018-09-22] MEDS ORDERED: LACTATED RINGERS 1,000 ML IV PRN (10:58)
[2018-09-22] MEDS ORDERED: ceFAZolin 2 GM/50 ML NS 50 ML IV ONE (11:00)
[2018-09-22] MEDS ORDERED: BUP/EPI 0.5% 1:200,000 (SENSORCAINE) 30 ML VIAL ONE (11:58)
[2018-09-22] MEDS ORDERED: PROPOFOL INJECTION 50 ML IV ONE (13:36)
--- NOTE | 2018-09-22 13:44 | Progress Note-Pre Operative ---
Pre-Operative Progress Note H&P Reviewed The H&P was reviewed, patient examined and no changes noted. Date Seen by Provider: Sep 22, 2018 Time Seen by Provider: 13:44 Date H&P Reviewed: Sep 22, 2018 Time H&P Reviewed: 13:44 Pre-Operative Diagnosis: hx rectal ca ANGELICA BRITTON DO Sep 22, 2018 13:44
--- NOTE | 2018-09-22 14:19 | Progress Note-Post Operative ---
Post-Operative Progess Note Surgeon (s)/Drywall Worker (s) Surgeon ANGELICA BRITTON DO Drywall Worker: na Pre-Operative Diagnosis hx rectal ca Post-Operative Diagnosis same Procedure & Operative Findings Date of Procedure 09/22/18 Procedure Performed/Findings port removal Anesthesia Type mac c local Estimated Blood Loss Estimated blood loss (mL): min Specimens/Packing Specimens Removed na ANGELICA BRITTON DO Sep 22, 2018 14:19
--- NOTE | 2018-09-22 14:20 | Discharge Inst-Simple/Standard ---
Discharge Inst-Standard Patient Instructions/Follow Up Plan of Care/Instructions/FU: 2 weeks Kori Activity as Tolerated: Yes Discharge Diet: Regular Diet Other Inst to Patient Follow up Appt: Make appointment for 2 week. Instructions: No strenuous activity. May shower in 24 hours, no tub bath or soaking. Use incentive spirometer at home as directed. No Smoking Skin/Wound Care: You have special glue over incision it will fall off on its own. Symptoms to Report: Appetite Changes, Extremity Discoloration, Numbness/Tingling, Swelling Increased, Bleeding Excessive, Eyesight Changes, Pain Increased, Urine Color Change, Constipation(Persistent), Fever over 101 degree F, Pain/Pressure in chest, Urinating Difficulty, Cough Up/Vomit Blood, Heart Beat Irreg/Pounding, Pain/Pressure in jaw, Vaginal Bleeding Increase, Cramps in feet or legs, Lightheadedness, Pain/Pressure in shoulder, Diarrhea(Persistent), Memory Changes Suddenly, Questions/Concerns, Weight gain consecutive days, Dizziness/Fainting, Nausea/Vomiting, Shortness of Breath, Weight gain over 2 pounds If questions or concerns contact your physician Or seek help at emergency department. ANGELICA BRITTON DO Sep 22, 2018 14:20
[2018-09-22] MEDS ORDERED: ONDANSETRON 4 MG/2 ML (SDV) Z0FRAN IVP PRN (14:30)
[2018-09-22] MEDS ORDERED: fentaNYL INJECTION 100 MCG/2 ML AMP IVP ONE (14:30)
--- NOTE | 2018-09-22 14:40 | Anesthesia-General Post-Op ---
MAC Patient Condition Mental Status/LOC: Same as Preop Cardiovascular: Satisfactory Nausea/Vomiting: Absent Respiratory: Satisfactory Pain: Controlled Complications: Absent Post Op Complications Complications None Follow Up Care/Instructions Patient Instructions None needed. Anesthesiology Discharge Order Discharge Order Patient is doing well, no complaints, stable vital signs, no apparent adverse anesthesia problems. No complications reported per nursing. THONG JEAN CRNA Sep 22, 2018 14:40
--- NOTE | 2018-09-22 21:26 | OPERATIVE REPORT ---
DATE OF SERVICE: 09/22/2018 PREOPERATIVE DIAGNOSIS: History of rectal cancer. POSTOPERATIVE DIAGNOSIS: History of rectal cancer. PROCEDURE: Port removal. SURGEON: Angelica Sheikh DO ANESTHESIA: MAC with local. ESTIMATED BLOOD LOSS: Minimal. COMPLICATIONS: None. INDICATIONS: The patient is a 63-year-old male who has been cleared for port removal. He understands risks and benefits of procedure and wished to proceed with procedure. Consent was signed in the chart. DESCRIPTION OF PROCEDURE: The patient was taken to the operating suite, was prepped and draped in sterile fashion. Timeout was performed. Local anesthetic was used to infiltrate around the port. A 15 blade scalpel was used to make a skin incision and cautery used to dissect down through the subcutaneous tissues until the port was encounter. Port was grasped and removed from the pocket created and the catheter was removed in its entirety. The pocket was then irrigated with copious amounts of irrigation. The subcutaneous tissues were then reapproximated using 3-0 Vicryl and the skin was then washed and dried and Skin Affix was placed over the incision. The patient tolerated procedure well without complications, taken to recovery room in stable condition. Job ID: [id number] DocumentID: [id number] Dictated Date: 09/22/2018 19:55:47 Wholesale Account Executive Date: 09/22/2018 21:26:04 Dictated By: ANGELICA SHEIKH DO
== END 2018-09-22 15:50 | disposition home or self-care (01) ==
LOC: SDC 09:45
PROVIDERS: ATTEND Surgery
DX: Z08 Encounter for follow-up examination after completed treatment for malignant neoplasm (principal); Z85.048 Personal history of other malignant neoplasm of rectum, rectosigmoid junction, and anus
CPT/HCPCS: 87081

== ENCOUNTER → 2018-12-08 | Outpatient (CLI) | payer SELFPAY ==
[2018-12-08 09:46] LABS: BASOPHILS % (AUTO) 0 % (0-10); EOSINOPHILS # (AUTO) 0.1 10^3/uL (0.0-0.3); EOSINOPHILS % (AUTO) 3 % (0-10); HEMATOCRIT 41 % (40-54); HEMOGLOBIN 14.2 G/DL (13.3-17.7); LYMPHOCYTES % (AUTO) 22 % (12-44); MEAN CORPUSCULAR HEMOGLOBIN 31 PG (25-34); MEAN CORPUSCULAR HGB CONC 35 G/DL (32-36); MEAN CORPUSCULAR VOLUME 89 FL (80-99); MEAN PLATELET VOLUME 11.3 FL (7.4-10.4); MONOCYTES # (AUTO) 0.3 X 10^3 (0.0-1.0); MONOCYTES % (AUTO) 8 % (0-12); NEUTROPHILS # (AUTO) 2.9 X 10^3 (1.8-7.8); NEUTROPHILS % (AUTO) 67 % (42-75); PLATELET COUNT 181 10^3/uL (130-400); RED CELL DISTRIBUTION WIDTH 12.7 % (10.0-14.5); WHITE BLOOD COUNT 4.3 10^3/uL (4.3-11.0)
[2018-12-08 10:08] LABS: ALANINE AMINOTRANSFERASE 32 U/L (0-55); ALBUMIN 4.1 GM/DL (3.2-4.5); ALKALINE PHOSPHATASE 89 U/L (40-136); BILIRUBIN,TOTAL 0.3 MG/DL (0.1-1.0); BUN/CREATININE RATIO 14; CALCIUM 8.5 MG/DL (8.5-10.1); CARBON DIOXIDE 19 MMOL/L (21-32); CHLORIDE 107 MMOL/L (98-107); CREATININE SERUM 1.13 MG/DL (0.60-1.30); GFR ESTIMATED > 60; GLUCOSE 147 MG/DL (70-105); POTASSIUM 4.3 MMOL/L (3.6-5.0); SODIUM 134 MMOL/L (135-145); TOTAL PROTEIN 7.5 GM/DL (6.4-8.2)
== END ==
LOC: EDSTATUS 12-06 09:27 → ONC 09:30
PROVIDERS: ATTEND Internal Medicine Hematology & Oncology
DX: C20 Malignant neoplasm of rectum (principal); E66.9 Obesity, unspecified; Z68.32 Body mass index [BMI] 32.0-32.9, adult; Z92.21 Personal history of antineoplastic chemotherapy; Z92.3 Personal history of irradiation; Z45.2 Encounter for adjustment and management of vascular access device
CPT/HCPCS: 36415; 80053; 82378; 85025; 99213

== ENCOUNTER → 2019-03-09 | Outpatient (CLI) | payer OTHER | LOC: ONC 10:31 | PROVIDERS: ATTEND Internal Medicine Hematology & Oncology | DX: C20 Malignant neoplasm of rectum (principal); T81.30XA Disruption of wound, unspecified, initial encounter | CPT/HCPCS: 99213 ==

== ENCOUNTER → 2019-06-08 | Outpatient (CLI) | payer OTHER ==
[2019-06-08 09:31] LABS: BASOPHILS % (AUTO) 0 % (0-10); EOSINOPHILS # (AUTO) 0.1 10^3/uL (0.0-0.3); EOSINOPHILS % (AUTO) 4 % (0-10); HEMATOCRIT 42 % (40-54); HEMOGLOBIN 14.5 G/DL (13.3-17.7); LYMPHOCYTES # (AUTO) 0.8 X 10^3 (1.0-4.0); LYMPHOCYTES % (AUTO) 21 % (12-44); MEAN CORPUSCULAR HEMOGLOBIN 31 PG (25-34); MEAN CORPUSCULAR HGB CONC 34 G/DL (32-36); MEAN CORPUSCULAR VOLUME 90 FL (80-99); MEAN PLATELET VOLUME 11.3 FL (7.4-10.4); MONOCYTES # (AUTO) 0.4 X 10^3 (0.0-1.0); MONOCYTES % (AUTO) 10 % (0-12); NEUTROPHILS # (AUTO) 2.4 X 10^3 (1.8-7.8); NEUTROPHILS % (AUTO) 65 % (42-75); PLATELET COUNT 179 10^3/uL (130-400); WHITE BLOOD COUNT 3.7 10^3/uL (4.3-11.0)
[2019-06-08 09:49] LABS: ALBUMIN 4.1 GM/DL (3.2-4.5); BILIRUBIN,TOTAL 0.4 MG/DL (0.1-1.0); CALCIUM 8.7 MG/DL (8.5-10.1); CREATININE SERUM 1.22 MG/DL (0.60-1.30); POTASSIUM 4.5 MMOL/L (3.6-5.0); TOTAL PROTEIN 7.2 GM/DL (6.4-8.2)
== END ==
LOC: ONC 09:15
PROVIDERS: ATTEND Internal Medicine Hematology & Oncology
DX: C20 Malignant neoplasm of rectum (principal); Z92.21 Personal history of antineoplastic chemotherapy; Z92.3 Personal history of irradiation
CPT/HCPCS: 80053; 82378; 85025; 99213